=== PATIENT | female | born 1990 | race Caucasian/White ===

== ENCOUNTER 2018-07-31 20:22 | Outpatient (REF) | payer BC, SELFPAY ==
--- NOTE | 2018-07-31 | PAPFT_PTH ---
PATIENT: Grisel Adams LOC: [facility] U#:[id number] AGE/SX: 27/F ROOM: RE07/31/[address]: Marcia Hutchinson : 1990 BED: DIS: 07/31/2018 SPEC #: [id number] RECD: 08/03/18 13:07 STATUS: HEATH REQ #: [id number] SILVINO: 07/31/18 00:[address]: Marcia Hutchinson DEPT: [facility] Cytology RECD BY: Camille Busch ENTERED: 08/03/18 13:07 SP TYPE: PAPFT OTHR DR: Joel Romo Tissues: 1 - CX/ENDOCX FOR PAP SMEARS Procedures: PAP THIN PREP/UVM Screening Comments: [id number]
[2018-07-31 21:01] LABS: Abs Immature Grans 0.01 k/cumm (0.0-0.09); Absolute Basophil Count 0.04 k/cumm (0.0-0.2); Absolute Eosinophil Count 0.08 k/cumm (0.0-0.7); Absolute Lymphocyte Count 3.03 k/cumm (1.2-3.4); Absolute Monocyte Count 0.59 k/cumm (0.11-0.7); Absolute Neutrophil Count 5.83 k/cumm (1.2-6.7); Basophils % 0.4; Eosinophils % 0.8; HCT 37.7 % (36.0-46.0); HGB 11.8 g/dL (12.0-15.5); Immature Grans % 0.1; Lymphocytes % 31.6; Mean Corp. HGB Concentration 31.3 g/dL (32.0-36.0); Mean Corpuscular Hemoglobin 25.8 pg (27.0-33.0); Mean Corpuscular Volume 82.3 fL (80-95); Mean Platelet Volume 10.9 fL (8.0-11.0); Monocytes % 6.2; Neutrophils % 60.9; Platelet Count 394 x1000/uL (130-400); RBC 4.58 m/cumm (4.00-5.20); RBC Distribution Width 15.4 % (11.7-14.6); White Blood Cell Count 9.58 k/cumm (4.4-10.8)
[2018-07-31 21:15] LABS: ALT 18 U/L (12-78); AST 20 U/L (15-37); Albumin 3.7 g/dL (3.4-5.0); Alkaline Phosphatase 78 U/L (46-116); Anion Gap 11.4 mmol/L (3-11); BUN 11 mg/dL (7-18); Bilirubin, Total 0.2 mg/dL (0.2-1.0); CO2 25.6 mmol/L (21.0-32.0); CREATININE 0.61 mg/dL (0.55-1.02); Calcium 9.3 mg/dL (8.5-10.1); Chloride 102 mmol/L (98-107); Cholesterol 173 mg/dL (50-200); Glucose 75 mg/dL (70-100); HDL Cholesterol 61 mg/dL (40-60); LDL CHOLESTEROL 91 mg/dL (<100); Potassium 4.3 mmol/L (3.5-5.1); Sodium 139 mmol/L (136-145); Total Protein 7.6 g/dL (6.4-8.2); Triglyceride 165 mg/dL (30-150)
[2018-07-31 21:26] LABS: C-Reactive Protein 1.81 mg/dL (0.0-0.3)
[2018-07-31 21:49] LABS: ESR 29 MM/HR (0-20)
== END 2018-07-31 20:42 ==
LOC: NCHCN 20:22
PROVIDERS: PCP Internal Medicine; Referring Provider Family Medicine; Visit Provider Family Medicine
DX: R10.9 Unspecified abdominal pain (principal); K62.5 Hemorrhage of anus and rectum; Z13.9 Encounter for screening, unspecified; Z12.4 Encounter for screening for malignant neoplasm of cervix; Z00.00 Encounter for general adult medical examination without abnormal findings
CPT/HCPCS: 80053; 80061; 83721; 85652; 88142; 85025; 86140

== ENCOUNTER 2018-08-28 09:30 | Outpatient (REF) | payer BC, SELFPAY ==
[2018-08-28 21:04] LABS: Iron 33 ug/dL (50-175); Total Iron Binding Capacity 482 ug/dL (250-450); Transferrin Sat 7 % (15-50)
[2018-08-31 12:16] LABS: IgA 151 mg/dL (85-499); Interpretation SEE COMMENTS; Tissue Transglutaminase IgA <1.2 U/mL (<4.0)
== END 2018-08-28 09:50 ==
LOC: NCHCN 09:30
PROVIDERS: PCP Internal Medicine; Visit Provider Family Medicine
DX: R10.9 Unspecified abdominal pain (principal); K62.5 Hemorrhage of anus and rectum
CPT/HCPCS: 82784; 83516; 83540; 83550

== ENCOUNTER 2019-01-12 22:31 | Outpatient (REF) | payer BC, SELFPAY ==
[2019-01-12 21:15] LABS: Abs Immature Grans 0.01 k/cumm (0.0-0.09); Absolute Basophil Count 0.04 k/cumm (0.0-0.2); Absolute Lymphocyte Count 2.86 k/cumm (1.2-3.4); Absolute Monocyte Count 0.68 k/cumm (0.11-0.7); Absolute Neutrophil Count 6.11 k/cumm (1.2-6.7); Basophils % 0.4; HCT 36.4 % (36.0-46.0); HGB 11.8 g/dL (12.0-15.5); Immature Grans % 0.1; Lymphocytes % 29.2; Mean Corp. HGB Concentration 32.4 g/dL (32.0-36.0); Mean Corpuscular Hemoglobin 26.3 pg (27.0-33.0); Mean Corpuscular Volume 81.1 fL (80-95); Mean Platelet Volume 10.3 fL (8.0-11.0); Monocytes % 6.9; Neutrophils % 62.4; Platelet Count 400 x1000/uL (130-400); RBC 4.49 m/cumm (4.00-5.20); RBC Distribution Width 14.9 % (11.7-14.6)
[2019-01-12 21:22] LABS: Iron 33 ug/dL (50-175); Total Iron Binding Capacity 506 ug/dL (250-450); Transferrin Sat 7 % (15-50)
== END 2019-01-12 22:51 ==
LOC: NCHCN 22:31
PROVIDERS: PCP Internal Medicine; Visit Provider Family Medicine
DX: K62.5 Hemorrhage of anus and rectum (principal); R10.9 Unspecified abdominal pain
CPT/HCPCS: 83540; 83550; 85025

== ENCOUNTER 2020-10-18 15:59 | Outpatient (REF) | payer SELFPAY ==
[2020-10-20 14:06] LABS: Chlamydia Result Negative (Negative); GC Result Negative (Negative)
== END 2020-10-18 16:19 ==
LOC: NCHCN 15:59
PROVIDERS: PCP Internal Medicine; Visit Provider Registered Nurse
DX: Z11.3 Encounter for screening for infections with a predominantly sexual mode of transmission (principal)
CPT/HCPCS: 87491; 87591

== ENCOUNTER 2021-04-26 15:54 | Outpatient (REF) | payer SELFPAY ==
--- NOTE | 2021-04-26 14:45 | PAPFT_PTH ---
PATIENT: Grisel Adams LOC: [facility] U#:[id number] AGE/SX: 30/F ROOM: RE04/26/[address]: Jenny Chen : 1990 BED: DIS: 04/26/2021 SPEC #: [id number] RECD: 04/27/21 13:11 STATUS: HEATH RECarole #: [id number] SILVINO: 04/26/21 14:[address]: Jenny Chen DEPT: [facility] Cytology RECD BY: Camille Busch ENTERED: 04/27/21 13:11 SP TYPE: PAPFT OTHR DR: Joel Romo Tissues: 1 - CX/ENDOCX FOR PAP SMEARS Procedures: PAP THIN PREP/UVM Screening HPV DNA PROBE Comments: [id number]
[2021-04-26 20:52] LABS: Abs Immature Grans 0.04 10^3/uL (0.0-0.06); Absolute Basophil Count 0.07 10^3/uL (0.0-0.2); Absolute Eosinophil Count 0.06 10^3/uL (0.0-0.7); Absolute Lymphocyte Count 3.75 10^3/uL (1.2-3.4); Absolute Monocyte Count 0.76 10^3/uL (0.1-0.8); Basophils % 0.6; Eosinophils % 0.5; HCT 34.5 % (36.0-46.0); HGB 10.7 g/dL (11.2-15.7); Immature Grans % 0.4; Lymphocytes % 33.5; MCH 25.5 pg (27.0-33.0); MCV 82.3 fL (80-95); MPV 9.5 fL (8.0-11.0); Monocytes % 6.8; Neutrophils % 58.2; Nucleated RBC 0 %; Platelet Count 522 10^3/uL (130-400); RBC 4.19 10^6/uL (3.93-5.22); RDW 14.4 % (11.7-14.6); RDW-SD 43.1 fL; WBC 11.18 10^3/uL (4.4-10.8)
[2021-04-26 20:54] LABS: Absolute Neutrophil Count 6.51 10^3/uL (1.2-6.7)
[2021-04-26 21:09] LABS: Anion Gap 12.3 mmol/L (3-11); BUN 10 mg/dL (7-18); CO2 25.7 mmol/L (21.0-32.0); CREATININE 0.8 mg/dL (0.55-1.02); Calcium 9.5 mg/dL (8.5-10.1); Chloride 103 mmol/L (98-107); Glucose 110 mg/dL (74-106); Potassium 4.1 mmol/L (3.5-5.1); Sodium 141 mmol/L (136-145)
[2021-04-30 16:44] LABS: Iron 25 ug/dL (50-170); Total Iron Binding Capacity 449 ug/dL (250-450); Transferrin Sat 6 % (15-50)
== END 2021-04-26 15:55 | disposition home or self-care (01) ==
LOC: NCHCN 15:54
PROVIDERS: PCP Internal Medicine; Visit Provider Registered Nurse
DX: D50.9 Iron deficiency anemia, unspecified (principal); E87.6 Hypokalemia; Z12.4 Encounter for screening for malignant neoplasm of cervix; R87.610 Atypical squamous cells of undetermined significance on cytologic smear of cervix (ASC-US); Z11.51 Encounter for screening for human papillomavirus (HPV); R87.810 Cervical high risk human papillomavirus (HPV) DNA test positive
CPT/HCPCS: 80048; 88142; 83540; 83550; 85025; 87624

== ENCOUNTER 2021-05-01 14:52 | Outpatient (REF) | payer SELFPAY | END 2021-05-01 14:53 | disposition home or self-care (01) | LOC: NCHCN 14:52 | PROVIDERS: PCP Internal Medicine; Visit Provider Nurse Practitioner Family | DX: R82.998 Other abnormal findings in urine (principal); M54.5 Low back pain | CPT/HCPCS: 87086 ==

== ENCOUNTER 2022-05-08 17:11 | Outpatient (REF) | payer OTHER, SELFPAY ==
--- NOTE | 2022-05-08 15:30 | PAPFT_PTH ---
PATIENT: Grisel Adams LOC: [facility]#:[id number] AGE/SX: 31/F ROOM: RE05/08/[address]: Marcia Hutchinson : 1990 BED: DIS: 05/08/2022 SPEC #: [id number] RECD: 05/09/22 13:05 STATUS: HEATH RECarole #: [id number] SILVINO: 05/08/22 15:[address]: Marcia Hutchinson DEPT: [facility] Cytology RECD BY: Camille Busch ENTERED: 05/09/22 13:05 SP TYPE: PAPFT OTHR DR: Joel Romo Tissues: 1 - CX/ENDOCX FOR PAP SMEARS Procedures: PAP THIN PREP/UVM Screening HPV DNA PROBE Comments: [id number] (CHLAMYDIA/GC)
[2022-05-10 15:15] LABS: Chlamydia Result Negative (Negative); GC Result Negative (Negative)
== END 2022-05-08 17:12 | disposition home or self-care (01) ==
LOC: NCHCN 17:11
PROVIDERS: PCP Internal Medicine; Visit Provider Family Medicine
DX: Z11.51 Encounter for screening for human papillomavirus (HPV) (principal)
CPT/HCPCS: 87491; 87591; 88142; 87624

== ENCOUNTER 2024-04-06 13:10 | Outpatient (REF) | payer SELFPAY | END 2024-04-06 13:11 | disposition home or self-care (01) | LOC: NCHCN 13:10 | PROVIDERS: PCP Internal Medicine; Visit Provider Physician Assistant | DX: R30.0 Dysuria (principal) | CPT/HCPCS: 87086 ==

== ENCOUNTER 2024-05-04 15:19 | Outpatient (REF) | payer MEDICAID, SELFPAY ==
[2024-05-04 21:26] LABS: Calculated LDL 70 mg/dL (<100); Cholesterol 180 mg/dL (<200); HDL Cholesterol 55 mg/dL (40-60); TSH (W/Ref FT4) 1.71 uIU/mL (0.36-3.74); Triglyceride 277 mg/dL (<150)
[2024-05-04 21:29] LABS: Iron 34 ug/dL (50-170); Total Iron Binding Capacity 530 ug/dL (250-450); Transferrin Sat 6 % (15-50)
== END 2024-05-04 15:20 | disposition home or self-care (01) ==
LOC: NCHCN 15:19
PROVIDERS: PCP Internal Medicine; Visit Provider Family Medicine
DX: D50.8 Other iron deficiency anemias (principal); R63.5 Abnormal weight gain; E78.1 Pure hyperglyceridemia
CPT/HCPCS: 80061; 83540; 83550; 84443; 87086

== ENCOUNTER 2024-06-16 19:51 | Outpatient (REF) | payer MEDICAID, SELFPAY ==
[2024-06-16 21:31] LABS: HCT 37.6 % (36.0-46.0); HGB 12.1 g/dL (11.2-15.7); MCHC 32.2 % (32.0-36.0); MCV 81 fL (80-95); MPV 10.1 fL (8.0-11.0); Platelet Count 477 10^3/uL (130-400); RBC 4.65 10^6/uL (3.93-5.22); RDW 14.6 % (11.7-14.6); RDW-SD 42.6 fL; WBC 11.08 10^3/uL (4.4-10.8)
[2024-06-16 22:45] LABS: Iron 37 ug/dL (50-170); Total Iron Binding Capacity 538 ug/dL (250-450); Transferrin Sat 7 % (15-50)
== END 2024-06-16 19:52 | disposition home or self-care (01) ==
LOC: NCHCN 19:51
PROVIDERS: PCP Internal Medicine; Visit Provider Family Medicine
DX: D50.9 Iron deficiency anemia, unspecified (principal)
CPT/HCPCS: 85027; 83540; 83550

== ENCOUNTER 2024-09-09 16:54 | Outpatient (REF) | payer MEDICAID, SELFPAY ==
[2024-09-09 22:34] LABS: Iron 46 ug/dL (50-170); Total Iron Binding Capacity 379 ug/dL (250-450); Transferrin Sat 12 % (15-50)
== END 2024-09-09 16:55 | disposition home or self-care (01) ==
LOC: NCHCN 16:54
PROVIDERS: PCP Internal Medicine; Visit Provider Family Medicine
DX: D50.9 Iron deficiency anemia, unspecified (principal)
CPT/HCPCS: 85027; 83540; 83550

== ENCOUNTER 2024-10-29 14:22 | Outpatient (REF) | payer MEDICAID, SELFPAY ==
[2024-10-29 15:38] LABS: HCT 38.3 % (36.0-46.0); HGB 12.6 g/dL (11.2-15.7); MCH 28.7 pg (27.0-33.0); MCHC 32.9 % (32.0-36.0); MCV 87 fL (80-95); MPV 10.3 fL (8.0-11.0); Platelet Count 387 10^3/uL (130-400); RBC 4.39 10^6/uL (3.93-5.22); RDW 15.3 % (11.7-14.6); RDW-SD 48.9 fL
[2024-10-29 16:18] LABS: Ferritin 256 ng/mL (8-252)
== END 2024-10-29 14:23 | disposition home or self-care (01) ==
LOC: NCHCN 14:22
PROVIDERS: PCP Internal Medicine; Visit Provider Family Medicine
DX: E61.1 Iron deficiency (principal)
CPT/HCPCS: 85027; 82728

== ENCOUNTER 2024-12-08 08:51 | Outpatient (REF) | payer MEDICAID, SELFPAY ==
--- OUTSIDE RECORDS SUMMARY | 2024-12-08 08:53 | XMS_ITS ---
Author Organization Unknown Address [address] [place] [phone] Phone Care Team Providers Care Learning And Development Director Name Role Phone LAURA INTERIANO MD Attending Candace MORENO Primary Unavailable Results BASIC METABOLIC PANEL (BMP) - Collect Date/Time: 05/27/2021 11:10 [facility] ID: [id number] [address], [place], [address] LOINC: 37969-9 Test Value Unit Reference Range Code Code System Flag GLUCOSE 97 mg/dL L=70 H=116 2345-7 LOINC BUN 8 mg/dL L=6 H=25 3094-0 LOINC CREATININE 0.73 mg/dL L=0.51 H=0.95 2160-0 LOINC SODIUM SERUM 142 mmol/L L=136 H=145 2951-2 LOINC POTASSIUM SERUM 3.7 mmol/L L=3.4 H=5.2 2823-3 LOINC CHLORIDE SERUM 106 mmol/L L=96 H=110 2075-0 LOINC CARBON DIOXIDE (CO2) 26 mmol/L L=22 H=34 2028-9 LOINC ANION GAP 10.5 mmol/L 07990-6 LOINC CALCIUM SERUM 8.7 mg/dL L=8.2 H=10.2 65873-9 LOINC AGE 30 years eGFR (non-Afr.Amer.) 94 mL/min 88902-3 LOINC eGFR (Afr-[place]) 114 mL/min 39671-7 LOINC CBC W/ DIFFERENTIAL - Collec t Date/Time: 05/27/2021 11:10 [facility] ID: [id number] 8 [facility], [place], [place], [address] LOINC: 04533-7 Test Value Unit Reference Range Code Code System Flag WBC 10.37 th/cmm L=5.00 H=10.00 6690-2 LOINC H NEUT % 64.9 % L=40.0 H=80.0 LYMPH % 28.4 % L=10.0 H=50.0 MONO % 4.9 % L=2.0 H=12.0 72383-6 LOINC EOS % 0.7 % L=0.0 H=8.0 BASO % 0.8 % L=0.0 H=3.0 IG % 0.3 % L=0.0 H=1.1 2514-8 LOINC NRBC % 0.0 % L=0.0 H=0.0 77370-0 LOINC NEUT abs count 6.7 th/cmm L=1.6 H=8.4 751-8 LOINC LYMPH abs count 2.9 th/cmm L=1.5 H=4.0 731-0 LOINC MONO abs count 0.5 th/cmm L=0.2 H=1.0 742-7 LOINC EOS abs count 0.1 th/cmm L=0.0 H=0.5 711-2 LOINC BASO abs count 0.1 th/cmm L=0.0 H=0.2 704-7 LOINC IG abs count 0.0 th/cmm L=0.0 H=0.1 29737-4 LOINC NRBC abs count 0.0 mil/cmm L=0.0 H=0.0 98948-2 LOINC RBC 4.01 mil/cmm L=3.90 H=5.40 789-8 LOINC HEMOGLOBIN 10.4 gm/dL L=12.0 H=16.0 718-7 LOINC L HEMATOCRIT 33 % L=37 H=47 4544-3 LOINC L MCV 82 fL L=82 H=92 787-2 LOINC MCH 25.9 pg L=27.0 H=31.0 785-6 LOINC L MCHC 31.7 % L=32.0 H=36.0 786-4 LOINC L RDW-SD 45.1 fL L=39.0 H=49.0 788-0 LOINC PLATELET COUNT 387 th/cmm L=150 H=450 777-3 LOINC CHLAMYDIA/GC AMPLIFIED PROBE - Collect Date/Time: 05/27/2021 10:50 [facility] ID: [id number] [address] [place] [address], [id number] LOINC: 55321-8 Test Value Unit Reference Range Code Code System Flag Chlamydia Result Negative Negative GC Result Negative Negative TEST (URINE) QUALI TATIVE - Collect Date/Time: 05/27/2021 10:50 [facility] ID: [id number] [address], [place], [address] LOINC: 2106-3 Test Value Unit Reference Range Code Code System Flag TEST NEGATIVE 6-3 LOINC URINALYSIS WITH REFLEX CULT IF POSITIVE - Collect Date/Time: 05/27/2021 10:50 [facility] ID: [id number] [address] [place] [address], [address] LOINC: 56852-9 Test Value Unit Reference Range Code Code System Flag COLLECTION MODE: Clean Catch Color YELLOW yellow 5778-6 LOINC Appearance CLEAR clear 5767-9 LOINC Glucose urine NEGATIVE negative mg/dl 74823-2 LOINC Bilirubin NEGATIVE negative 5770-3 LOINC Ketones NEGATIVE negative mg/dl 2514-8 LOINC Spec gravity 1.015 1.003 - 1.030 5811-5 LOINC pH urine 6.0 5.0 - 7.0 2756-5 LOINC Protein NEGATIVE negative mg/dl 66172-8 LOINC Urobilinogen 0.2 <or= 1 EU/dl 91456-9 LOINC Nitrite. NEGATIVE negative 5802-4 LOINC Blood TRACE-LY negative 5794-3 LOINC A Leukocytes. TRACE negative A MICROSCOPIC INDICATED WBCs. 0-5 0-5 / hpf 30711-9 LOINC RBCs 0-5 0-5 / hpf 06847-3 LOINC Epith cells 0-5 0-5 / hpf 34534-2 LOINC Cell types squamous Crystals none none Bacteria minimal none Mucus present none 8247-9 LOINC Casts none none /lpf 93633-6 LOINC Other 94318-[address] ABDOMEN/PELVIS WITH IV ON LY - Completed: 05/27/2021 15:30 LOINC: Radiation optimization: All CT scans at this facility use at least one of these dose optimization techniques: automated exposure control; mA and/or kV adjustment per patient size (includes targeted exams where dose is matched to clinical indication); or iterative reconstruction. Prior ultrasound examination of December 2012 was reviewed. There is a small nodular density in the posterior basal segment of the left lower lobe measuring 6 by 4 mm. There is no ascites. The liver size is slightly prominent. Mild steatosis. No discrete focal hepatic lesion is evident. No dilatation of intrahepatic ducts. There is no obvious gallbladder pathology. The CBD is not dilated. There are no significant focal findings in the pancreas. The pancreatic duct is not dilated. Spleen size is normal. The splenic and portal veins are patent. There are no significant adrenal masses. No focal findings in the kidneys. No hydronephrosis. Abdominal aorta is not enlarged. There is no significant retroperitoneal/periaortic adenopathy. No evidence of significant anterior abdominal wall hernia. No bowel obstruction. No free air. In the pelvis, there is no evidence of appendicitis nor diverticulitis. The uterus and adnexal regions appear unremarkable and there is no free fluid in the pelvis. No intrapelvic nor inguinal adenopathy. Urinary bladder wall is slightly thickened. On the sagittal images, there is a single tiny air bubble within the anterior urinary bladder. IMPRESSION: 1. No evidence of acute appendicitis nor free fluid in the abdomen/pelvis and no evidence of bowel obstruction. 2. Mild hepatomegaly and mild hepatic steatosis. No splenomegaly. 3. Solitary tiny gas bubble noted in the anterior aspect of the urinary bladder. Also slight haziness of the urinary bladder wall. Correlation with any recent instrumentation recommended. Correlation with any history of bladder infection recommended. 4. There is a small nodular density measuring 6 by 4 mm in the left lung base. Recommend followup chest CT scan in 6 months. This study first read by [facility] Teleradiology. Final report called by myself to the ER provided Friday05/27/21 at 3:10 pm. Dictated by: NIC AMAYA M.D. RADIOLOGIST Transcribed by: NIGHAT 05/28/21/09:02 D Thursday, May 27, 2021 3:02:04 PM [id number] Electronically Reviewed and Signed By: MAGI AMAYA M.D. RADIOLOGIST 05/28/21 19:20 Copy for: LAURA INTERIANO MD via modem DISCHARGED Social History Type Status Start Date End Date Code Code Syst em Smoking History Never smoker (Never Smoked) 827054850 SNOMED CT Sex Female Medications Medication Start Date End Date Route Frequency Dose Code Code System Medication Instructions Home Meds Meclizine HCl 25MG Oral Tablet 01/30/2022 03/26/2022 ORAL EVERY 6 HOURS 1 TABLET 375032 RxNorm TAKE 1 TABLET ORAL EVERY 6 HOURS as needed for dizziness Ondansetron 4MG Oral Tablet, Disintegrating 03/26/2022 08/09/2022 ORAL NEEDED EVERY 6 HOURS 1 TABLET 001710 RxNorm TAKE 1 TABLET ORAL NEEDED EVERY 6 HOURS FOR Nausea/Vomi ting Benzonatate 200MG Oral Capsule, Liquid Filled 03/26/2022 08/09/2022 ORAL NEEDED THREE TIMES A DAY 1 CAPSULE 978761 RxNorm TAKE 1 CAPSULE ORAL NEEDED THREE TIMES A DAY Ibuprofen 200MG Oral Tablet 08/09/2022 11/17/2022 ORAL THREE TIMES A DAY 4 TABLET 797702 RxNorm TAKE 4 TABLET ORAL THREE TIMES A DAY TAKE WITH FOOD Zofran 4MG Oral Tablet 11/17/2022 02/16/2024 ORAL EVERY 6 HOURS 1 TABLET 078515 RxNorm TAKE 1 TABLET ORAL EVERY 6 HOURS FOR Nausea Assessment You had the following problems:DEPRESSIONLIGHTHEADEDTACHYCARDIA Hospital Discharge Instructions Should you have any questions prior to discharge, please contact a member of your healthcare team. If you have left the hospital and have any questions, please contact your primary care physician. Reason For Referral No Data Found Problems Problem Start Date Resolved Date Status Code Code System DEPRESSION active 24100288 SNOMED-CT LIGHTHEADED active 985596771 SNOMED-C T TACHYCARDIA active 1360005 SNOMED-C T OBESITY active 641548657 SNOMED-CT Allergies and Adverse Reactions Allergy Substance Reaction Severity Start Date Concern Status Co de Code System PENICILLINS (CLASS) RASH (SNOMED-CT: null) Active 62452 RxNorm AMOXICILLIN Hives (SNOMED-CT: 507828181) Active Plan of Treatment US PELVIC / TV 10/14/2023 US PELVIC / TV 05/30/2022 US PELVIC / TV 05/16/2022 LAB DRAW 15MIN 04/18/2022 Encounters Encounter Diagnosis Start Date Code Code Sys tem Right lower quadrant pain 05/27/2021 SN OMED-CT Personal Care Team Section Performer Name Performer Role Active Date Inactive Da te
--- OUTSIDE RECORDS SUMMARY | 2024-12-08 08:53 | XMS_ITS ---
Author Organization Unknown Address [address] [place] [phone] Phone Care Team Providers Care [employer] Name Role Phone TRAVIS King MD Attending Unavailable KATIE MORENO Primary Unavailable Social History Type Status Start Date End Date Code Code Syst em Smoking History Never smoker (Never Smoked) 714846095 SNOMED CT Sex Female Medications Medication Start Date End Date Route Frequency Dose Code Code System Medication Instructions Home Meds Meclizine HCl 25MG Oral Tablet 01/30/2022 03/26/2022 ORAL EVERY 6 HOURS 1 TABLET 432463 RxNorm TAKE 1 TABLET ORAL EVERY 6 HOURS as needed for dizziness Ondansetron 4MG Oral Tablet, Disintegrating 03/26/2022 08/09/2022 ORAL NEEDED EVERY 6 HOURS 1 TABLET 929381 RxNorm TAKE 1 TABLET ORAL NEEDED EVERY 6 HOURS FOR Nausea/Vomi ting Benzonatate 200MG Oral Capsule, Liquid Filled 03/26/2022 08/09/2022 ORAL NEEDED THREE TIMES A DAY 1 CAPSULE 014739 RxNorm TAKE 1 CAPSULE ORAL NEEDED THREE TIMES A DAY Ibuprofen 200MG Oral Tablet 08/09/2022 11/17/2022 ORAL THREE TIMES A DAY 4 TABLET 938591 RxNorm TAKE 4 TABLET ORAL THREE TIMES A DAY TAKE WITH FOOD Zofran 4MG Oral Tablet 11/17/2022 02/16/2024 ORAL EVERY 6 HOURS 1 TABLET 669589 RxNorm TAKE 1 TABLET ORAL EVERY 6 [...] Date Status Code Code System DEPRESSION active 25992100 SNOMED-CT LIGHTHEADED active 720740666 SNOMED-C T TACHYCARDIA active 4581873 SNOMED-C T OBESITY active 185512881 SNOMED-CT Allergies and Adverse Reactions Allergy Substance Reaction Severity Start Date Concern Status Co de Code System PENICILLINS (CLASS) RASH (SNOMED-CT: null) Active 17355 RxNorm AMOXICILLIN Hives (SNOMED-CT: 051199693) Active Plan of Treatment US PELVIC / TV 10/14/2023 US PELVIC / TV 05/30/2022 US PELVIC / TV 05/16/2022 LAB DRAW 15MIN 04/18/2022 Encounters Encounter Diagnosis Start Date Code Code Sys tem Atypical squamous cells of u ndetermined significance on cytologic smear of cervix (ASC-US) 06/14/2021 SNOME D-CT Personal Care Team Section Performer Name Performer Role Active Date Inactive Da te
--- OUTSIDE RECORDS SUMMARY | 2024-12-08 08:54 | XMS_ITS ---
Author Organization Unknown Address [address] [place] [phone] Phone Care Team Providers Care Flame Cutting Supervisor Name Role Phone JACI Rivas Registered Nurse Unavailable SERGE ISLAS Registered Nurse Unavailable ANIA Angulo Attending Unavailable KATIE Guaman Primary Unavailable UNLISTED PROVIDER - REQUESTED Xhandoff Un available Results URINALYSIS WITH REFLEX CULT IF POSITIVE* - Collect Date/Time: 01/30/2022 19:05 [facility] ID: [id number] [address] [place], [place], [address] LOINC: 65433-6 Test Value Unit Reference Range Code Code System Flag COLLECTION MODE: CLEAN CATCH Color YELLOW yellow 5778-6 LOINC Appearance CLEAR clear 5767-9 LOINC Glucose urine NEGATIVE negative mg/dl 33667-7 LOINC Bilirubin NEGATIVE negative 5770-3 LOINC Ketones NEGATIVE negative mg/dl 2514-8 LOINC Spec gravity 1.010 1.003 - 1.030 5811-5 LOINC pH urine 6.0 5.0 - 7.0 2756-5 LOINC Protein NEGATIVE negative mg/dl 66839-4 LOINC Urobilinogen 0.2 <or= 1 EU/dl 84025-5 LOINC Nitrite. NEGATIVE negative 5802-4 LOINC Blood SMALL negative 5794-3 LOINC A Leukocytes. TRACE negative A MICROSCOPIC INDICATED WBCs. 0-5 0-5 / hpf 95235-2 LOINC RBCs 0-5 0-5 / hpf 62989-0 LOINC Epith cells 10-25 0-5 / hpf 30029-3 LOINC Cell types squamous Crystals none none Bacteria moderate none Mucus none none 8247-9 LOINC Casts none none /lpf 04586-4 LOINC Other 09785-1 LOINC TEST (URINE) QUALI TATIVE - Collect Date/Time: 01/30/2022 19:05 [facility] ID: [id number] [address] [place], [place], [address] LOINC: 2105-3 Test Value Unit Reference Range Code Code System Flag [facility]GATIVE [facility]105[facility] L (CMP) - Collect Date/Time: 01/30/2022 18:00 [facility] ID: [id number] [address] [place], [place], [address] LOINC: 28522-4 Test Value Unit Reference Range Code Code System Flag GLUCOSE 79 mg/dL L=70 H=116 2345-7 LOINC BUN 10 mg/dL L=6 H=25 3094-0 LOINC CREATININE 0.67 mg/dL L=0.51 H=0.95 2160-0 LOINC SODIUM SERUM 139 mmol/L L=136 H=145 2951-2 LOINC POTASSIUM SERUM 3.8 mmol/L L=3.4 H=5.2 2823-3 LOINC CHLORIDE SERUM 104 mmol/L L=96 H=110 2075-0 LOINC CARBON DIOXIDE (CO2) 25 mmol/L L=22 H=34 2028-9 LOINC ANION GAP 10.1 mmol/L 78771-2 LOINC CALCIUM SERUM 9.3 mg/dL L=8.2 H=10.2 50550-4 LOINC BILIRUBIN TOTAL 0.2 mg/dL L=0.0 H=1.3 1975-2 LOINC ALK. PHOS. 68 U/L L=46 H=116 6768-6 LOINC SGOT (AST) 9 U/L L=15 H=37 1920-8 LOINC L SGPT (ALT) 12 U/L L=12 H=78 1742-6 LOINC TOTAL PROTEIN 7.6 gm/dL L=6.0 H=8.0 2885-2 LOINC ALBUMIN 3.4 gm/dL L=3.4 H=5.0 1751-7 LOINC AGE 31 years eGFR (non-Afr.Amer.) 103 mL/min 37438-0 LOINC eGFR (Afr-[place]ander) > 120 mL/min 10215-8 LOINC CBC W/ DIFFERENTIAL* - Colle ct Date/Time: 01/30/2022 18:00 [facility] ID: [id number] [address] [place], [place], [address] LOINC: 50192-8 Test Value Unit Reference Range Code Code System Flag WBC 11.22 th/cmm L=5.00 H=10.00 6690-2 LOINC H NEUT % 56.4 % L=40.0 H=80.0 LYMPH % 35.7 % L=10.0 H=50.0 MONO % 6.1 % L=2.0 H=12.0 95738-2 LOINC EOS % 1.1 % L=0.0 H=8.0 BASO % 0.5 % L=0.0 H=3.0 IG % 0.2 % L=0.0 H=1.1 2514-8 LOINC NRBC % 0.0 % L=0.0 H=0.0 01102-5 LOINC NEUT abs count 6.3 th/cmm L=1.6 H=8.4 751-8 LOINC LYMPH abs count 4.0 th/cmm L=1.5 H=4.0 731-0 LOINC MONO abs count 0.7 th/cmm L=0.2 H=1.0 742-7 LOINC EOS abs count 0.1 th/cmm L=0.0 H=0.5 711-2 LOINC BASO abs count 0.1 th/cmm L=0.0 H=0.2 704-7 LOINC IG abs count 0.0 th/cmm L=0.0 H=0.1 67926-6 LOINC NRBC abs count 0.0 mil/cmm L=0.0 H=0.0 06815-0 LOINC RBC 4.55 mil/cmm L=3.90 H=5.40 789-8 LOINC HEMOGLOBIN 11.9 gm/dL L=12.0 H=16.0 718-7 LOINC L HEMATOCRIT 38 % L=37 H=47 4544-3 LOINC MCV 82 fL L=82 H=92 787-2 LOINC MCH 26.2 pg L=27.0 H=31.0 785-6 LOINC L MCHC 31.7 % L=32.0 H=36.0 786-4 LOINC L RDW-SD 46.0 fL L=39.0 H=49.0 788-0 LOINC PLATELET COUNT 371 th/cmm L=150 H=450 777-3 LOINC Atyp lymphs 2+ Giant plts present Social History Type Status Start Date End Date Code Code Syst em Smoking History Never smoker (Never Smoked) 444569078 SNOMED CT Sex Female Vital Signs Vital Sign Value Unit Morrow Value Morrow Unit Date/Time Recent/Initial? Code Code System Body Mass Index 54.41 kg/m2 01/30/2022 17:20 Initial 72566 -5 LOINC Systolic Blood Pressure 126 mm[Hg] 01/30/2022 19:37 Most Recent 8480- 6 LOINC Diastolic Blood Pressure 69 mm[Hg] 01/30/2022 19:37 Most Recent 8462- 4 LOINC Systolic Blood Pressure 170 mm[Hg] 01/30/2022 17:20 Initial 8480- 6 LOINC Diastolic Blood Pressure 86 mm[Hg] 01/30/2022 17:20 Initial 8462- 4 LOINC Body Surface Area 2.55 m2 01/30/2022 17:20 Initial 3140- 1 LOINC Height 162.560 0 cm 64.00 in 01/30/2022 17:20 Initial 8302- 2 LOINC O2 Saturation 99 % 2021 19:37 Most Recent 93107 -5 LOINC O2 Saturation 98 % 2021 17:20 Initial 15791 -5 LOINC Pulse 99.0 /min 01/30/2022 19:37 Most Recent 8867- 4 LOINC Pulse 113.0 /min 01/30/2022 17:20 Initial 8867- 4 LOINC Respiration 19 /min 01/31/20 19:37 Most Recent 9279- 1 LOINC Respiration 18 /min 01/31/20 17:20 Initial 9279- 1 LOINC Temperature 36.8 Alyssa 98.2 F 01/31/20 17:20 Initial 8310- 5 LOINC Weight 143.79 kg 317.00 lbs 01/30/2022 17:20 Initial 02758 -7 [facility] Medications Medication Start Date End Date Route Frequency Dose Code Code System Medication Instructions Home Meds Meclizine HCl 25MG Oral Tablet 01/30/2022 03/26/2022 ORAL EVERY 6 HOURS 1 TABLET 808369 RxNorm TAKE 1 TABLET ORAL EVERY 6 HOURS as needed for dizziness Ondansetron 4MG Oral Tablet, Disintegrating 03/26/2022 08/09/2022 ORAL NEEDED EVERY 6 HOURS 1 TABLET 511626 RxNorm TAKE 1 TABLET ORAL NEEDED EVERY 6 HOURS FOR Nausea/Vomi ting Benzonatate 200MG Oral Capsule, Liquid Filled 03/26/2022 08/09/2022 ORAL NEEDED THREE TIMES A DAY 1 CAPSULE 927340 RxNorm TAKE 1 CAPSULE ORAL NEEDED THREE TIMES A DAY Ibuprofen 200MG Oral Tablet 08/09/2022 11/17/2022 ORAL THREE TIMES A DAY 4 TABLET 430362 RxNorm TAKE 4 TABLET ORAL THREE TIMES A DAY TAKE WITH FOOD Zofran 4MG Oral Tablet 11/17/2022 02/16/2024 ORAL EVERY 6 HOURS 1 TABLET 621482 RxNorm TAKE 1 TABLET ORAL EVERY 6 [...] Date Status Code Code System DEPRESSION active 41103949 SNOMED-CT LIGHTHEADED active 156886078 SNOMED-C T TACHYCARDIA active 8475028 SNOMED-C T OBESITY active 382793949 SNOMED-CT Allergies and Adverse Reactions Allergy Substance Reaction Severity Start Date Concern Status Co de Code System PENICILLINS (CLASS) RASH (SNOMED-CT: null) Active 65518 RxNorm AMOXICILLIN Hives (SNOMED-CT: 042793317) Active Plan of Treatment US PELVIC / TV 10/14/2023 US PELVIC / TV 05/30/2022 US PELVIC / TV 05/16/2022 LAB DRAW 15MIN 04/18/2022 Encounters Encounter Diagnosis Start Date Code Code Sys tem Other peripheral vertigo, unspecified ear 01/30/2022 SNOMED-CT Personal Care Team Section Performer Name Performer Role Active Date Inactive Da te
--- OUTSIDE RECORDS SUMMARY | 2024-12-08 08:54 | XMS_ITS ---
Author Organization Unknown Address [address] [place] [phone] Phone Care Team Providers Care Brick Baker Name Role Phone TRAVIS King Attending Unavailable KATIE DOWNINGAH Rowena Primary Unavailable Social History Type Status Start Date End Date Code Code Syst em Smoking History Never smoker (Never Smoked) 325504859 SNOMED CT Sex Female Medications Medication Start Date End Date Route Frequency Dose Code Code System Medication Instructions Home Meds Meclizine HCl 25MG Oral Tablet 01/30/2022 03/26/2022 ORAL EVERY 6 HOURS 1 TABLET 794044 RxNorm TAKE 1 TABLET ORAL EVERY 6 HOURS as needed for dizziness Ondansetron 4MG Oral Tablet, Disintegrating 03/26/2022 08/09/2022 ORAL NEEDED EVERY 6 HOURS 1 TABLET 908073 RxNorm TAKE 1 TABLET ORAL NEEDED EVERY 6 HOURS FOR Nausea/Vomi ting Benzonatate 200MG Oral Capsule, Liquid Filled 03/26/2022 08/09/2022 ORAL NEEDED THREE TIMES A DAY 1 CAPSULE 822543 RxNorm TAKE 1 CAPSULE ORAL NEEDED THREE TIMES A DAY Ibuprofen 200MG Oral Tablet 08/09/2022 11/17/2022 ORAL THREE TIMES A DAY 4 TABLET 655248 RxNorm TAKE 4 TABLET ORAL THREE TIMES A DAY TAKE WITH FOOD Zofran 4MG Oral Tablet 11/17/2022 02/16/2024 ORAL EVERY 6 HOURS 1 TABLET 732371 RxNorm TAKE 1 TABLET ORAL EVERY 6 [...] Date Status Code Code System DEPRESSION active 11134244 SNOMED-CT LIGHTHEADED active 994255630 SNOMED-C T TACHYCARDIA active 9639127 SNOMED-C T OBESITY active 533100525 SNOMED-CT Allergies and Adverse Reactions Allergy Substance Reaction Severity Start Date Concern Status Co de Code System PENICILLINS (CLASS) RASH (SNOMED-CT: null) Active 43314 RxNorm AMOXICILLIN Hives (SNOMED-CT: 483818639) Active Plan of Treatment US PELVIC / TV 10/14/2023 US PELVIC / TV 05/30/2022 US PELVIC / TV 05/16/2022 LAB DRAW 15MIN 04/18/2022 Encounters Encounter Diagnosis Start Date Code Code Sys tem Other primary ovarian failure 12/17/2021 SNOMED-CT Personal Care Team Section Performer Name Performer Role Active Date Inactive Da te
--- OUTSIDE RECORDS SUMMARY | 2024-12-08 08:55 | XMS_ITS ---
Author Organization Unknown Address [address] [place] [address] [phone] Phone Care Team Providers Care Executive Director Name Role Phone YU King Attending Unavailable KATIE Guaman Primary Unavailable Results CBC W/ DIFFERENTIAL* - Colle ct Date/Time: 04/18/2022 15:05 [facility] ID: [id number] [address] [place], [place], [address] LOINC: 85331-4 Test Value Unit Reference Range Code Code System Flag WBC 10.94 th/cmm L=5.00 H=10.00 6690-2 LOINC H NEUT % 58.5 % L=40.0 H=80.0 LYMPH % 32.6 % L=10.0 H=50.0 MONO % 7.2 % L=2.0 H=12.0 48752-0 LOINC EOS % 1.0 % L=0.0 H=8.0 BASO % 0.5 % L=0.0 H=3.0 IG % 0.2 % L=0.0 H=1.1 2514-8 LOINC NRBC % 0.0 % L=0.0 H=0.0 82057-2 LOINC NEUT abs count 6.4 th/cmm L=1.6 H=8.4 751-8 LOINC LYMPH abs count 3.6 th/cmm L=1.5 H=4.0 731-0 LOINC MONO abs count 0.8 th/cmm L=0.2 H=1.0 742-7 LOINC EOS abs count 0.1 th/cmm L=0.0 H=0.5 711-2 LOINC BASO abs count 0.1 th/cmm L=0.0 H=0.2 704-7 LOINC IG abs count 0.0 th/cmm L=0.0 H=0.1 14632-5 LOINC NRBC abs count 0.0 mil/cmm L=0.0 H=0.0 28800-0 LOINC RBC 4.37 mil/cmm L=3.90 H=5.40 789-8 LOINC HEMOGLOBIN 11.4 gm/dL L=12.0 H=16.0 718-7 LOINC L HEMATOCRIT 35 % L=37 H=47 4544-3 LOINC L MCV 81 fL L=82 H=92 787-2 LOINC L MCH 26.1 pg L=27.0 H=31.0 785-6 LOINC L MCHC 32.4 % L=32.0 H=36.0 786-4 LOINC RDW-SD 44.1 fL L=39.0 H=49.0 788-0 LOINC PLATELET COUNT 483 th/cmm L=150 H=450 777-3 LOINC H COMPREHENSIVE METABOLIC PANE L (CMP) - Collect Date/Time: 04/18/2022 15:05 [facility] ID: [id number] [address] [place], [place], [address] LOINC: 75805-0 Test Value Unit Reference Range Code Code System Flag GLUCOSE 86 mg/dL L=70 H=116 2345-7 LOINC BUN 6 mg/dL L=6 H=25 3094-0 LOINC CREATININE 0.67 mg/dL L=0.51 H=0.95 2160-0 LOINC SODIUM SERUM 135 mmol/L L=136 H=145 2951-2 LOINC L POTASSIUM SERUM 4.0 mmol/L L=3.4 H=5.2 2823-3 LOINC CHLORIDE SERUM 100 mmol/L L=96 H=110 2075-0 LOINC CARBON DIOXIDE (CO2) 26 mmol/L L=22 H=34 2028-9 LOINC ANION GAP 8.8 mmol/L 79820-2 LOINC CALCIUM SERUM 8.8 mg/dL L=8.2 H=10.2 04233-8 LOINC BILIRUBIN TOTAL 0.3 mg/dL L=0.0 H=1.3 1975-2 LOINC ALK. PHOS. 87 U/L L=46 H=116 6768-6 LOINC SGOT (AST) 11 U/L L=15 H=37 1920-8 LOINC L SGPT (ALT) 20 U/L L=12 H=78 1742-6 LOINC TOTAL PROTEIN 7.9 gm/dL L=6.0 H=8.0 2885-2 LOINC ALBUMIN 3.4 gm/dL L=3.4 H=5.0 1751-7 LOINC AGE 31 years eGFR (non-Afr.Amer.) 103 mL/min 39389-7 LOINC eGFR (Afr-Namibian) > 120 mL/min 47726-9 [facility] THYROID TESTING CASCADE* - C ollect Date/Time: 04/18/2022 15:05 [facility] ID: [id number] [address] [place] [address], [address] LOINC: 3016-3 Test Value Unit Reference Range Code Code System Flag TSH. 2.320 uIU/mL L=0.360 H=3.740 3014-8 [facility] LIPID PANEL* - Collect Date/ Time: 04/18/2022 15:05 [facility] ID: [id number] [address] [place] [address], [id number] LOINC: Test Value Unit Reference Range Code Code System Flag FASTING STATUS: NON FASTING CHOLESTEROL 172 mg/dL L=0 H=200 2093-3 LOINC TRIGLYCERIDES 172 mg/dL L=40 H=163 2571-8 LOINC H HDL 59 mg/dL L=36 H=77 2085-9 LOINC non-HDL-C 113 mg/dL L=0 H=160 64416-9 LOINC LDL (CALC) 79 mg/dL L=0 H=130 63103-1 LOINC % HDL 34.3 % Chol/HDL Ratio 2.9 L=0.0 H=4.4 9830-1 LOINC CHD Relative Risk 0.7 x Avg L=0.0 H=1.0 LDL/HDL Ratio 1.3 L=0.0 H=3.2 19982-3 [facility] CHD Relative Risk. 0.4 x Avg L=0.0 H=1.0 Social History Type Status Start Date End Date Code Code Syst em Smoking History Never smoker (Never Smoked) 263631207 SNOMED CT Sex Female Medications Medication Start Date End Date Route Frequency Dose Code Code System Medication Instructions Home Meds Ondansetron 4MG Oral Tablet, Disintegrating 03/26/2022 08/09/2022 ORAL NEEDED EVERY 6 HOURS 1 TABLET 353255 RxNorm TAKE 1 TABLET ORAL NEEDED EVERY 6 HOURS FOR Nausea/Vomiting Benzonatate 200MG Oral Capsule, Liquid Filled 03/26/2022 08/09/2022 ORAL NEEDED THREE TIMES A DAY 1 CAPSULE 311479 RxNorm TAKE 1 CAPSULE ORAL NEEDED THREE TIMES A DAY Ibuprofen 200MG Oral Tablet 08/09/2022 11/17/2022 ORAL THREE TIMES A DAY 4 TABLET 928039 RxNorm TAKE 4 TABLET ORAL THREE TIMES A DAY TAKE WITH FOOD Zofran 4MG Oral Tablet 11/17/2022 02/16/2024 ORAL EVERY 6 HOURS 1 TABLET 537152 RxNorm TAKE 1 TABLET ORAL EVERY 6 [...] Date Status Code Code System DEPRESSION active 26373787 SNOMED-CT LIGHTHEADED active 853606287 SNOMED-C T TACHYCARDIA active 7873583 SNOMED-C T OBESITY active 618934368 SNOMED-CT Allergies and Adverse Reactions Allergy Substance Reaction Severity Start Date Concern Status Co de Code System PENICILLINS (CLASS) RASH (SNOMED-CT: null) Active 54826 RxNorm AMOXICILLIN Hives (SNOMED-CT: 741922013) Active Plan of Treatment US PELVIC / TV 10/14/2023 US PELVIC / TV 05/30/2022 US PELVIC / TV 05/16/2022 LAB DRAW 15MIN 04/18/2022 Encounters Encounter Diagnosis Start Date Code Code Sys tem Major depressive disorder, s anika episode, severe without psychotic features 04/18/2022 SNOMED-CT Personal Care Team Section Performer Name Performer Role Active Date Inactive Da te
--- OUTSIDE RECORDS SUMMARY | 2024-12-08 08:55 | XMS_ITS ---
Author Organization Unknown Address [address] [place] [phone] Phone Care Team Providers Care Cooperative Education Director Name Role Phone KATIE Guaman Attending Unavailable Results US PELVIC TRANSVAGINAL* - Co mpleted: 05/30/2022 10:43 LOINC: PELVIC ULTRASOUND: Transabdominal and transvaginal exams were performed. Comparison is made with CT of the abdomen and pelvis dated 27 May 2021. The uterus is anteverted and measures 6.9 x 3.2 x 4.1 cm. The uterus is suboptimally visualized on transvaginal scanning. There is significant artifact in the body and fundus. The endometrial stripe is not well seen. There is no gross evidence of a fibroid. The uterus appears normal on prior CT. The ovaries were unable to be visualized either transabdominally or transvaginally. The ovaries appeared normal on prior CT. There is no free fluid or hydronephrosis. IMPRESSION: Limited exam. The ovaries were unable to be visualized. The uterus and endometrial stripe are not well evaluated. Dictated by: CEO RAMON AGUILA MD Transcribed by: BENJIE 05/30/22/15:35 [id number] Electronically Reviewed and Signed By: RAMON AGUILA MD 05/30/22 16:32 Copy for: KATIE Guaman via fax Copy for: 185 HEALTH INFORMATION MGMT Social History Type Status Start Date End Date Code Code Syst em Smoking History Never smoker (Never Smoked) 147333414 SNOMED CT Sex Female Medications Medication Start Date End Date Route Frequency Dose Code Code System Medication Instructions Home Meds Ondansetron 4MG Oral Tablet, Disintegrating 03/26/2022 08/09/2022 ORAL NEEDED EVERY 6 HOURS 1 TABLET 318601 RxNorm TAKE 1 TABLET ORAL NEEDED EVERY 6 HOURS FOR Nausea/Vomiting Benzonatate 200MG Oral Capsule, Liquid Filled 03/26/2022 08/09/2022 ORAL NEEDED THREE TIMES A DAY 1 CAPSULE 661267 RxNorm TAKE 1 CAPSULE ORAL NEEDED THREE TIMES A DAY Ibuprofen 200MG Oral Tablet 08/09/2022 11/17/2022 ORAL THREE TIMES A DAY 4 TABLET 496002 RxNorm TAKE 4 TABLET ORAL THREE TIMES A DAY TAKE WITH FOOD Zofran 4MG Oral Tablet 11/17/2022 02/16/2024 ORAL EVERY 6 HOURS 1 TABLET 920650 RxNorm TAKE 1 TABLET ORAL EVERY 6 [...] Date Status Code Code System DEPRESSION active 56934792 SNOMED-CT LIGHTHEADED active 784984966 SNOMED-C T TACHYCARDIA active 7299474 SNOMED-C T OBESITY active 437771315 SNOMED-CT Allergies and Adverse Reactions Allergy Substance Reaction Severity Start Date Concern Status Co de Code System PENICILLINS (CLASS) RASH (SNOMED-CT: null) Active 09291 RxNorm AMOXICILLIN Hives (SNOMED-CT: 892021526) Active Plan of Treatment US PELVIC / TV 10/14/2023 US PELVIC / TV 05/30/2022 US PELVIC / TV 05/16/2022 LAB DRAW 15MIN 04/18/2022 Encounters Encounter Diagnosis Start Date Code Code Sys tem Unspecified dyspareunia 05/30/2022 SNOM ED-CT Personal Care Team Section Performer Name Performer Role Active Date Inactive Da te
--- OUTSIDE RECORDS SUMMARY | 2024-12-08 08:55 | XMS_ITS ---
Author Organization Unknown Address [address] [place] [address] [phone] Phone Care Team Providers Care Parachute Line Tier Name Role Phone TK MITCHELL Registered Nurse Unavailable IRAM WHEELER Registered Nurse Unavailable TINY Angulo Attending Unavailable BRITTANI LINDSEY Unavailable KATIE Guaman Primary Unavailable UNLISTED PROVIDER - REQUESTED Xhandoff Un available Results STREP GROUP A ANTIGEN ASSAY - Collect Date/Time: 03/26/2022 11:01 [facility] ID: [id number] [address] [place] [address], [address] LOINC: 90040-3 Test Value Unit Reference Range Code Code System Flag GRP A STREP ANTIGEN NOT DETECTED 6556-5 LOINC [facility] COVID RHEONIX* - Javier ect Date/Time: 03/26/2022 11:01 [facility] ID: [id number] [address] [place] [address], [id number] LOINC: 22009-0 Test Value Unit Reference Range Code Code System Flag Tier- SYMPTOMS 64150-8 LOINC SARS COV2 RNA: POSITIVE REFERENCE RAN GE: NEGAT 79196-3 LOINC A XR CHEST PORTABLE OR 1V - Co mpleted: 03/26/2022 17:32 LOINC: CHEST X-RAY, 1 VIEW: Comparison CT scan is 04/17/2021. The heart is normal in size. The lungs are clear. The mediastinal structures and pleura appear intact. CONCLUSION:Normal chest. Dictated by: ZELDA CALZADA MD Transcribed by: BENJIE 03/28/22/08:27 [id number] Electronically Reviewed and Signed By: CLEVELAND CALZADA MD 03/30/22 15:47 Copy for: 185 HEALTH INFORMATION MGMT DISCHARGED Social History Type Status Start Date End Date Code Code Syst em Smoking History Never smoker (Never Smoked) 559197770 SNOMED CT Sex Female Vital Signs Vital Sign Value Unit [place] Value [place] Unit Date/Time Recent/Initial? Code Code System Body Mass Index 52.75 kg/m2 03/26/2022 11:08 Initial 47025 -5 LOINC Systolic Blood Pressure 141 mm[Hg] 03/26/2022 11:08 Initial 8480- 6 LOINC Diastolic Blood Pressure 92 mm[Hg] 03/26/2022 11:08 Initial 8462- 4 LOINC Body Surface Area 2.57 m2 03/26/2022 11:08 Initial 3140- 1 LOINC Height 165.100 0 cm 65.00 in 03/26/2022 11:08 Initial 8302- 2 LOINC O2 Saturation 96 % 2021 12:47 Most Recent 62580 -5 LOINC O2 Saturation 96 % 2021 11:08 Initial 29033 -5 LOINC Pulse 92.0 /min 03/26/2022 12:47 Most Recent 8867- 4 LOINC Pulse 97.0 /min 03/26/2022 11:08 Initial 8867- 4 LOINC Respiration 16 /min 03/26/20 12:47 Most Recent 9279- 1 LOINC Respiration 18 /min 03/26/20 11:08 Initial 9279- 1 LOINC Temperature 36.7 Alyssa 98.1 F 03/26/20 11:08 Initial 8310- 5 LOINC Weight 143.79 kg 317.00 lbs 03/26/2022 11:08 Initial 33405 -7 [facility] Medications Medication Start Date End Date Route Frequency Dose Code Code System Medication Instructions Home Meds Meclizine HCl 25MG Oral Tablet 01/30/2022 03/26/2022 ORAL EVERY 6 HOURS 1 TABLET 730580 RxNorm TAKE 1 TABLET ORAL EVERY 6 HOURS as needed for dizziness Ondansetron 4MG Oral Tablet, Disintegrating 03/26/2022 08/09/2022 ORAL NEEDED EVERY 6 HOURS 1 TABLET 423887 RxNorm TAKE 1 TABLET ORAL NEEDED EVERY 6 HOURS FOR Nausea/Vomi ting Benzonatate 200MG Oral Capsule, Liquid Filled 03/26/2022 08/09/2022 ORAL NEEDED THREE TIMES A DAY 1 CAPSULE 325146 RxNorm TAKE 1 CAPSULE ORAL NEEDED THREE TIMES A DAY Ibuprofen 200MG Oral Tablet 08/09/2022 11/17/2022 ORAL THREE TIMES A DAY 4 TABLET 727964 RxNorm TAKE 4 TABLET ORAL THREE TIMES A DAY TAKE WITH FOOD Zofran 4MG Oral Tablet 11/17/2022 02/16/2024 ORAL EVERY 6 HOURS 1 TABLET 739313 RxNorm TAKE 1 TABLET ORAL EVERY 6 [...] Date Status Code Code System DEPRESSION active 71021247 SNOMED-CT LIGHTHEADED active 046876751 SNOMED-C T TACHYCARDIA active 4135232 SNOMED-C T OBESITY active 690579992 SNOMED-CT Allergies and Adverse Reactions Allergy Substance Reaction Severity Start Date Concern Status Co de Code System PENICILLINS (CLASS) RASH (SNOMED-CT: null) Active 45090 RxNorm AMOXICILLIN Hives (SNOMED-CT: 301014574) Active Plan of Treatment US PELVIC / TV 10/14/2023 US PELVIC / TV 05/30/2022 US PELVIC / TV 05/16/2022 LAB DRAW 15MIN 04/18/2022 Encounters Encounter Diagnosis Start Date Code Code Sys tem COVID-19 03/26/2022 SNOMED-CT Personal Care Team Section Performer Name Performer Role Active Date Inactive Jong alonzo
--- OUTSIDE RECORDS SUMMARY | 2024-12-08 08:56 | XMS_ITS ---
Author Organization Unknown Address [address] [place] [phone] Phone Care Team Providers Care White Washer Name Role Phone ALEK ANDRADE Registered Nurse Unavailable MEE Casillas Attending Unavailable KATIE Guaman Primary Unavailable UNLISTED PROVIDER - REQUESTED Xhandoff Un available Results [facility] COVID FLU RSV GENEXPE RT - Collect Date/Time: 11/17/2022 22:49 [facility] ID: [id number] [address] [place], [place], [phone] LOINC: 65270-8 Test Value Unit Reference Range Code Code System Flag COVID NEGATIVE Normal: Negative 70864-7 LOINC INFLUENZA A DNA NEGATIVE Normal: Negative 03308-1 LOINC INFLUENZA B DNA NEGATIVE Normal: Negative 19450-1 LOINC RSV DNA NEGATIVE Normal: Negative 25516-3 LOINC Social History Type Status Start Date End Date Code Code Syst em Smoking History Never smoker (Never Smoked) 128722556 SNOMED CT Sex Female Vital Signs Vital Sign Value Unit [place] Value [place] Unit Date/Time Recent/Initial? Code Code System Body Mass Index 56.64 kg/m2 11/17/2022 21:42 Initial 12687 -5 LOINC Systolic Blood Pressure 170 mm[Hg] 11/17/2022 21:42 Initial 8480- 6 LOINC Diastolic Blood Pressure 94 mm[Hg] 11/17/2022 21:42 Initial 8462- 4 LOINC Body Surface Area 2.60 m2 11/17/2022 21:42 Initial 3140- 1 LOINC Height 162.560 0 cm 64.00 in 11/17/2022 21:42 Initial 8302- 2 LOINC O2 Saturation 95 % 2022 21:42 Initial 56895 -5 LOINC Pulse 88.0 /min 11/17/2022 21:42 Initial 8867- 4 LOINC Respiration 18 /min 11/17/19 21:42 Initial 9279- 1 LOINC Temperature 36.3 Alyssa 97.3 F 11/17/19 21:42 Initial 8310- 5 LOINC Weight 149.69 kg 330.00 lbs 11/17/2022 21:42 Initial 68546 -7 LOINC Medications Medication Start Date End Date Route Frequency Dose Code Code System Medication Instructions Home Meds Ibuprofen 200MG Oral Tablet 08/09/2022 11/17/2022 ORAL THREE TIMES A DAY 4 TABLET 961950 RxNorm TAKE 4 TABLET ORAL THREE TIMES A DAY TAKE WITH FOOD Zofran 4MG Oral Tablet 11/17/2022 02/16/2024 ORAL EVERY 6 HOURS 1 TABLET 352081 RxNorm TAKE 1 TABLET ORAL EVERY 6 [...] Date Status Code Code System DEPRESSION active 54637316 SNOMED-CT LIGHTHEADED active 304324450 SNOMED-C T TACHYCARDIA active 3415872 SNOMED-C T OBESITY active 186942294 SNOMED-CT Allergies and Adverse Reactions Allergy Substance Reaction Severity Start Date Concern Status Co de Code System PENICILLINS (CLASS) RASH (SNOMED-CT: null) Active 76695 RxNorm AMOXICILLIN Hives (SNOMED-CT: 178754616) Active Plan of Treatment US PELVIC / TV 10/14/2023 US PELVIC / TV 05/30/2022 US PELVIC / TV 05/16/2022 LAB DRAW 15MIN 04/18/2022 Encounters Encounter Diagnosis Start Date Code Code Sys tem Wheezing 11/17/2022 SNOMED-CT Personal Care Team Section Performer Name Performer Role Active Date Inactive Da clinton
--- OUTSIDE RECORDS SUMMARY | 2024-12-08 08:56 | XMS_ITS ---
Author Organization Unknown Address [address] [place] [phone] Phone Care Team Providers Care Metal Cabinet Finisher Name Role Phone ALEK ANDRADE Registered Nurse Unavailable YEN Alcantara Attending Unavailable [facility]LL[facility] Unavailable KATIE Guaman Primary Unavailable UNLISTED PROVIDER - REQUESTED Xhandoff Un available Results TEST QUAL (URINE) - Collect Date/Time: 08/09/2022 10:30 [facility] ID: [id number] [address] [place] [address], [address] LOINC: 2106-3 Test Value Unit Reference Range Code Code System Flag TEST NEGATIVE 2106-3 LOINC D-DIMER - Collect Date/Time: 08/09/2022 10:00 [facility] ID: [id number] [address] [place] [address], [address] LOINC: 28287-5 Test Value Unit Reference Range Code Code System Flag D-DIMER 0.22 mg/L L=0.19 H=0.50 19812-3 LOINC TROPONIN HIGH SENSITIVITY* - Collect Date/Time: 08/09/2022 10:00 [facility] ID: [id number] [address] [place] [address], [address] LOINC: 74280-8 Test Value Unit Reference Range Code Code System Flag TROPONIN HS < 4.0 pg/mL L=0.0 H=60.4 Specimen seq. Random SED RATE* - Collect Date/Lionel e: 08/09/2022 10:00 [facility] ID: [id number] [address] [place], [place], [address] LOINC: 4537-7 Test Value Unit Reference Range Code Code System Flag SED. RATE 28 mm/hr L=0 H=20 4537-7 LOINC H C REACTIVE PROTEIN HIGH SENS ITIVITY* - Collect Date/Time: 08/09/2022 10:00 [facility] ID: [id number] [address] [place] [address], [address] LOINC: 18849-8 Test Value Unit Reference Range Code Code System Flag CRP-HIGH SENS. 22.81 mg/L L=0.00 H=3.00 19112-4 LOINC H CRP-HIGH SENS 2.28 mg/dL L=0.00 H=0.30 03120-1 LOINC H CBC W/ DIFFERENTIAL* - Colle ct Date/Time: 08/09/2022 10:00 [facility] ID: [id number] [address] [place] [address], [address] LOINC: 25583-8 Test Value Unit Reference Range Code Code System Flag WBC 8.04 th/cmm L=5.00 H=10.00 6690-2 LOINC NEUT % 63.9 % L=40.0 H=80.0 LYMPH % 27.7 % L=10.0 H=50.0 MONO % 6.5 % L=2.0 H=12.0 96157-6 LOINC EOS % 1.0 % L=0.0 H=8.0 BASO % 0.7 % L=0.0 H=3.0 IG % 0.2 % L=0.0 H=1.1 2514-8 LOINC NRBC % 0.0 % L=0.0 H=0.0 80940-1 LOINC NEUT abs count 5.1 th/cmm L=1.6 H=8.4 751-8 LOINC LYMPH abs count 2.2 th/cmm L=1.5 H=4.0 731-0 LOINC MONO abs count 0.5 th/cmm L=0.2 H=1.0 742-7 LOINC EOS abs count 0.1 th/cmm L=0.0 H=0.5 711-2 LOINC BASO abs count 0.1 th/cmm L=0.0 H=0.2 704-7 LOINC IG abs count 0.0 th/cmm L=0.0 H=0.1 76903-5 LOINC NRBC abs count 0.0 mil/cmm L=0.0 H=0.0 66659-0 LOINC RBC 4.34 mil/cmm L=3.90 H=5.40 789-8 LOINC HEMOGLOBIN 11.1 gm/dL L=12.0 H=16.0 718-7 LOINC L HEMATOCRIT 36 % L=37 H=47 4544-3 LOINC L MCV 82 fL L=82 H=92 787-2 LOINC MCH 25.6 pg L=27.0 H=31.0 785-6 LOINC L MCHC 31.3 % L=32.0 H=36.0 786-4 LOINC L RDW-SD 44.6 fL L=39.0 H=49.0 788-0 LOINC PLATELET COUNT 387 th/cmm L=150 H=450 777-3 LOINC BASIC METABOLIC PANEL (BMP) - Collect Date/Time: 08/09/2022 10:00 [facility] ID: [id number] [address] [place], [place], [address] LOINC: 68826-1 Test Value Unit Reference Range Code Code System Flag GLUCOSE 94 mg/dL L=70 H=116 2345-7 LOINC BUN 9 mg/dL L=6 H=25 3094-0 LOINC CREATININE 0.59 mg/dL L=0.51 H=0.95 2160-0 LOINC SODIUM SERUM 136 mmol/L L=136 H=145 2951-2 LOINC POTASSIUM SERUM 4.3 mmol/L L=3.4 H=5.2 2823-3 LOINC CHLORIDE SERUM 101 mmol/L L=96 H=110 2075-0 LOINC CARBON DIOXIDE (CO2) 28 mmol/L L=22 H=34 2028-9 LOINC ANION GAP 7.2 mmol/L 01831-0 LOINC CALCIUM SERUM 9.0 mg/dL L=8.2 H=10.2 04930-3 LOINC AGE 31 years eGFR (non-Afr.Amer.) 120 mL/min 24814-1 LOINC eGFR (Afr-Belarusian) > 120 mL/min 00231-3 LOINC XR CHEST 2V PA AND LATERAL - Completed: 08/09/2022 08:35 LOINC: [facility] RADIOLOGY [place], [place] [address] [employer] HEL[employer] REPORT Patient Name: ELSISATURNINO MRN: Sex: : Age: [id number] F [id number] Account: StayType: Accession: Admit: [id number] E/R [id number] 08/09/2022 Ordered: Order ID: Ordering Provider: [id number] NANCY LI Completed: CompletedBy: Resulted: By: [id number] [facility] [id number] [facility] Study Description: XR CHEST 2V PA AND LATERAL Study Reason: ChestPain Technique: 2D digital imaging was performed of the chest. 2 images were obtained. Comparison: Comparison examination is 03/26/2022. FINDINGS: MEDIASTINUM: Normal. HEART: Normal. PULMONARY VASCULATURE: Normal. LUNGS: Clear. PLEURAL SPACE: No pleural effusion or pneumothorax. BONE:Within normal limits for the patient's age. OTHER FINDINGS:Normal. IMPRESSION: No acute pulmonary findings. Report Digitally Signed by Cordell Adams on 08/09/2022 08:47 AM EDT Social History Type Status Start Date End Date Code Code Syst em Smoking History Never smoker (Never Smoked) 794573905 SNOMED CT Sex Female Vital Signs Vital Sign Value Unit [place] Value [place] Unit Date/Time Recent/Initial? Code Code System Body Mass Index 56.75 kg/m2 08/09/2022 07:58 Initial 11314 -5 LOINC Systolic Blood Pressure 129 mm[Hg] 08/09/2022 12:00 Most Recent 8480- 6 LOINC Diastolic Blood Pressure 81 mm[Hg] 08/09/2022 12:00 Most Recent 8462- 4 LOINC Systolic Blood Pressure 136 mm[Hg] 08/09/2022 07:58 Initial 8480- 6 LOINC Diastolic Blood Pressure 79 mm[Hg] 08/09/2022 07:58 Initial 8462- 4 LOINC Body Surface Area 2.60 m2 08/09/2022 07:58 Initial 3140- 1 LOINC Height 162.560 0 cm 64.00 in 08/09/2022 07:58 Initial 8302- 2 LOINC O2 Saturation 95 % 2021 12:00 Most Recent 65122 -5 LOINC O2 Saturation 96 % 2021 07:58 Initial 80664 -5 LOINC Pulse 79.0 /min 08/09/2022 12:00 Most Recent 8867- 4 LOINC Pulse 97.0 /min 08/09/2022 07:58 Initial 8867- 4 LOINC Respiration 16 /min 08/09/20 22 12:00 Most Recent 9279- 1 LOINC Respiration 16 /min 08/09/20 22 07:58 Initial 9279- 1 LOINC Temperature 2.3 Alyssa 36.1 F 08/09/20 22 12:00 Most Recent 8310- 5 LOINC Temperature 35.3 Alyssa 95.5 F 08/09/20 22 07:58 Initial 8310- 5 LOINC Weight 149.96 kg 330.60 lbs 08/09/2022 07:58 Initial 84934 -7 [facility] Medication Start Date End Date Route Frequency Dose Code Code System Medication Instructions Home Meds Ondansetron 4MG Oral Tablet, Disintegrating 03/26/2022 08/09/2022 ORAL NEEDED EVERY 6 HOURS 1 TABLET 797922 RxNorm TAKE 1 TABLET ORAL NEEDED EVERY 6 HOURS FOR Nausea/Vomiting Benzonatate 200MG Oral Capsule, Liquid Filled 03/26/2022 08/09/2022 ORAL NEEDED THREE TIMES A DAY 1 CAPSULE 373019 RxNorm TAKE 1 CAPSULE ORAL NEEDED THREE TIMES A DAY Ibuprofen 200MG Oral Tablet 08/09/2022 11/17/2022 ORAL THREE TIMES A DAY 4 TABLET 978240 RxNorm TAKE 4 TABLET ORAL THREE TIMES A DAY TAKE WITH FOOD Zofran 4MG Oral Tablet 11/17/2022 02/16/2024 ORAL EVERY 6 HOURS 1 TABLET 238389 RxNorm TAKE 1 TABLET ORAL EVERY 6 HOURS FOR Nausea Assessment You had the following problems:DEPRESSIONLIGHTHEADEDTACHYCARDIA Hospital Discharge Instructions Should you have any questions prior to discharge, please contact a member of your healthcare team. If you have left the hospital and have any questions, please contact your primary care physician. Reason For Referral No Data Found Procedures Procedure Name Date Status Code Code Syste m Both tonsils completed 45079825 SNOMEDCT Problems Problem Start Date Resolved Date Status Code Code System DEPRESSION active 22507442 SNOMED-CT LIGHTHEADED active 147202471 SNOMED-C T TACHYCARDIA active 7670857 SNOMED-C T OBESITY active 912434022 SNOMED-CT Allergies and Adverse Reactions Allergy Substance Reaction Severity Start Date Concern Status Co de Code System PENICILLINS (CLASS) RASH (SNOMED-CT: null) Active 37400 RxNorm AMOXICILLIN Hives (SNOMED-CT: 603784622) Active Plan of Treatment US PELVIC / TV 10/14/2023 US PELVIC / TV 05/30/2022 US PELVIC / TV 05/16/2022 LAB DRAW 15MIN 04/18/2022 Encounters Encounter Diagnosis Start Date Code Code Sys tem Disease of pericardium, unspecified 08/09/2022 SNOMED-CT Personal Care Team Section Performer Name Performer Role Active Date Inactive Da te
--- OUTSIDE RECORDS SUMMARY | 2024-12-08 08:56 | XMS_ITS ---
Author Organization Unknown Address [address] [place] [address] [phone] Phone Care Team Providers Care Termite Control Technician Name Role Phone FAISAL HEALY Registered Nurse Unavailable ANIA Angulo Attending Unavailable KATIE Guaman Primary Unavailable UNLISTED PROVIDER - REQUESTED Xhandoff Un available Results CULT URINE CULTURE* - Collec t Date/Time: 04/22/2023 11:50 [facility] ID: [id number] [address] [place] [address], [phone] LOINC: 630-4 Test Value Unit Reference Range Code Code System Flag COLLECTION MODE: CLEAN CATCH 31982-7 LOINC URINALYSIS WITH REFLEX CULT IF POSITIVE* - Collect Date/Time: 04/22/2023 11:50 [facility] ID: [id number] [address] [place] [address], [address] LOINC: 34617-7 Test Value Unit Reference Range Code Code System Flag COLLECTION MODE: CLEAN CATCH 77436-2 LOINC Color STRAW yellow 5778-6 LOINC Appearance HAZY clear 5767-9 LOINC Glucose urine NEGATIVE negative mg/dl 54736-1 LOINC Bilirubin NEGATIVE negative 5770-3 LOINC Ketones NEGATIVE negative mg/dl 2514-8 LOINC Spec gravity 1.010 1.003 - 1.030 5811-5 LOINC pH urine 7.5 5.0 - 7.0 2756-5 LOINC A Protein NEGATIVE negative mg/dl 30327-0 LOINC Urobilinogen 0.2 <or= 1 EU/dl 85899-9 LOINC Nitrite. NEGATIVE negative 5802-4 LOINC Blood NEGATIVE negative 5794-3 LOINC Leukocytes. SMALL negative A MICROSCOPIC INDICATED WBCs. 5-10 0-5 / hpf 42032-5 LOINC RBCs none 0-5 / hpf 60623-5 LOINC Epith cells 5-10 0-5 / hpf 27408-2 LOINC Cell types squamous Crystals none none Bacteria minimal none Mucus none none 8247-9 LOINC Casts none none /lpf 34228-9 LOINC Other 00826-4 LOINC TEST QUAL (URINE) - Collect Date/Time: 04/22/2023 11:50 [facility] ID: [id number] [address] [place] [address], [address] LOINC: 2106-3 Test Value Unit Reference Range Code Code System Flag TEST NEGATIVE 2105-3 LOINC LIPASE* NEW - Collect Date/T michelle: 04/22/2023 11:50 [facility] ID: [id number] [address] [place] [address], [phone] LOINC: 3040-3 Test Value Unit Reference Range Code Code System Flag LIPASE. 19 U/L L=16 H=77 COMPREHENSIVE METABOLIC PANE L (CMP) - Collect Date/Time: 04/22/2023 11:50 [facility] ID: [id number] [address] [place] [address], [address] LOINC: 71379-7 Test Value Unit Reference Range Code Code System Flag GLUCOSE 88 mg/dL L=70 H=116 2345-7 LOINC BUN 7 mg/dL L=6 H=25 3094-0 LOINC CREATININE 0.70 mg/dL L=0.51 H=0.95 2160-0 LOINC SODIUM SERUM 136 mmol/L L=136 H=145 2951-2 LOINC POTASSIUM SERUM 4.4 mmol/L L=3.4 H=5.2 2823-3 LOINC CHLORIDE SERUM 101 mmol/L L=96 H=110 2075-0 LOINC CARBON DIOXIDE (CO2) 26 mmol/L L=22 H=34 2028-9 LOINC ANION GAP 8.7 mmol/L 53394-7 LOINC CALCIUM SERUM 9.2 mg/dL L=8.2 H=10.2 42485-8 LOINC BILIRUBIN TOTAL 0.3 mg/dL L=0.0 H=1.3 1975-2 LOINC ALK. PHOS. 76 U/L L=46 H=116 6768-6 LOINC SGOT (AST) 15 U/L L=15 H=37 1920-8 LOINC SGPT (ALT) 19 U/L L=12 H=78 1742-6 LOINC TOTAL PROTEIN 7.6 gm/dL L=6.0 H=8.0 2885-2 LOINC ALBUMIN 3.3 gm/dL L=3.4 H=5.0 1751-7 LOINC L AGE 32 years eGFR (non-Afr.Amer.) 98 mL/min 86680-6 LOINC eGFR (Afr-Bahamian) 118 mL/min 75763-5 LOINC CBC W/ DIFFERENTIAL* - Colle ct Date/Time: 04/22/2023 11:50 [facility] ID: [id number] [address] [place], [place], [address] LOINC: 71278-7 Test Value Unit Reference Range Code Code System Flag WBC 9.38 th/cmm L=5.00 H=10.00 6690-2 LOINC NEUT % 59.8 % L=40.0 H=80.0 LYMPH % 32.2 % L=10.0 H=50.0 MONO % 5.8 % L=2.0 H=12.0 91986-6 LOINC EOS % 1.2 % L=0.0 H=8.0 BASO % 0.7 % L=0.0 H=3.0 IG % 0.3 % L=0.0 H=1.1 2514-8 LOINC NRBC % 0.0 % L=0.0 H=0.0 56612-9 LOINC NEUT abs count 5.6 th/cmm L=1.6 H=8.4 751-8 LOINC LYMPH abs count 3.0 th/cmm L=1.5 H=4.0 731-0 LOINC MONO abs count 0.5 th/cmm L=0.2 H=1.0 742-7 LOINC EOS abs count 0.1 th/cmm L=0.0 H=0.5 711-2 LOINC BASO abs count 0.1 th/cmm L=0.0 H=0.2 704-7 LOINC IG abs count 0.0 th/cmm L=0.0 H=0.1 49104-8 LOINC NRBC abs count 0.0 mil/cmm L=0.0 H=0.0 13402-4 LOINC RBC 4.35 mil/cmm L=3.90 H=5.40 789-8 LOINC HEMOGLOBIN 11.4 gm/dL L=12.0 H=16.0 718-7 LOINC L HEMATOCRIT 36 % L=37 H=47 4544-3 LOINC L MCV 82 fL L=82 H=92 787-2 LOINC MCH 26.2 pg L=27.0 H=31.0 785-6 LOINC L MCHC 32.0 % L=32.0 H=36.0 786-4 LOINC RDW-SD 42.2 fL L=39.0 H=49.0 788-0 LOINC PLATELET COUNT 383 th/cmm L=150 H=450 777-[address] ABD PELVIS W IV CONTRAST ONLY - Completed: 04/22/2023 12:40 LOINC: [facility] [place], [place] [address] 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 Contrast Material: Intravenous: 100 mL Omnipaque 350 administered Comparison: 05/27/2021 FINDINGS: The lung bases are clear. Questionable wall thickening of the distal esophagus subcentimeter short axis. Paraesophageal lymph nodes, nonspecific. Hepatic steatosis. The gallbladder, pancreas and spleen are unremarkable. The bilateral adrenal glands and kidneys are unremarkable. Urinary bladder is within normal limits. Normal caliber aorta. Subcentimeter short axis mesenteric and lymph nodes, unchanged. No bowel obstruction or bowel wall thickening. Normal appendix. Colonic diverticulosis. No free air or free fluid. 3.3 cm simple left ovarian cyst. No aggressive osseous lesions. IMPRESSION: No acute abdominal pelvic finding. Hepatic steatosis. Mild wall thickening of the distal esophagus. Correlate for symptoms of reflux esophagitis. Radiation Optimization: All CT scans at this facility use at least one of these dose optimization techniques: automated exposure control; mA and/or kV adjustment per patient size (includes targeted exams where dose is matched to clinical indication); or iterative reconstruction. Report Digitally Signed by Reji Carballo on 04/22/2023 12:56 PM EDT Social History Type Status Start Date End Date Code Code Syst em Smoking History Never smoker (Never Smoked) 525545047 SNOMED CT Sex Female Vital Signs Vital Sign Value Unit Latham Value Latham Unit Date/Time Recent/Initial? Code Code System Body Mass Index 56.88 kg/m2 04/22/2023 11:41 Initial 92276 -5 LOINC Systolic Blood Pressure 127 mm[Hg] 04/22/2023 13:20 Most Recent 8480- 6 LOINC Diastolic Blood Pressure 80 mm[Hg] 04/22/2023 13:20 Most Recent 8462- 4 LOINC Systolic Blood Pressure 138 mm[Hg] 04/22/2023 11:41 Initial 8480- 6 LOINC Diastolic Blood Pressure 67 mm[Hg] 04/22/2023 11:41 Initial 8462- 4 LOINC Body Surface Area 2.61 m2 04/22/2023 11:41 Initial 3140- 1 LOINC Height 162.560 0 cm 64.00 in 04/22/2023 11:41 Initial 8302- 2 LOINC O2 Saturation 100 % 2022 13:20 Most Recent 43762 -5 LOINC O2 Saturation 97 % 2022 11:41 Initial 52068 -5 LOINC Pulse 71.0 /min 04/22/2023 13:20 Most Recent 8867- 4 LOINC Pulse 89.0 /min 04/22/2023 11:41 Initial 8867- 4 LOINC Respiration 16 /min 04/22/20 13:20 Most Recent 9279- 1 LOINC Respiration 17 /min 04/22/20 11:41 Initial 9279- 1 LOINC Temperature 36.1 Alyssa 97.0 F 04/22/20 13:20 Most Recent 8310- 5 LOINC Temperature 36.1 Alyssa 97.0 F 04/22/20 11:41 Initial 8310- 5 LOINC Weight 150.30 kg 331.35 lbs 04/22/2023 11:41 Initial 90356 -7 LOINC Medications Medication Start Date End Date Route Frequency Dose Code Code System Medication Instructions Home Meds Zofran 4MG Oral Tablet 11/17/2022 02/16/2024 ORAL EVERY 6 HOURS 1 TABLET 249966 RxNorm TAKE 1 TABLET ORAL EVERY 6 [...] Date Status Code Code System DEPRESSION active 70941150 SNOMED-CT LIGHTHEADED active 886663882 SNOMED-C T TACHYCARDIA active 8876867 SNOMED-C T OBESITY active 930682028 SNOMED-CT Allergies and Adverse Reactions Allergy Substance Reaction Severity Start Date Concern Status Co de Code System PENICILLINS (CLASS) RASH (SNOMED-CT: null) Active 61943 RxNorm AMOXICILLIN Hives (SNOMED-CT: 154958911) Active Plan of Treatment US PELVIC / TV 10/14/2023 US PELVIC / TV 05/30/2022 US PELVIC / TV 05/16/2022 LAB DRAW 15MIN 04/18/2022 Encounters Encounter Diagnosis Start Date Code Code Sys tem Right upper quadrant pain 04/22/2023 902760729 SN OMED-CT Personal Care Team Section Performer Name Performer Role Active Date Inactive Da te
--- OUTSIDE RECORDS SUMMARY | 2024-12-08 08:57 | XMS_ITS ---
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 COMPARISON: No exams were available for comparison FINDINGS: UTERUS: Measures 7.5 cm length by 2.6 cm AP by 2.5 cm wide. There are no uterine fibroids. The endometrium thickness is 5 mm and appears homogeneous. There is no fluid in the endometrial canal CERVIX: Small nabothian cyst. RIGHT OVARY: Measures 2.7 x 1.3 x 1.5 cm No significant cysts nor masses evident in the right ovary. LEFT OVARY: Measures 2.5 x 1.1 x 1.7 cm No significant cysts nor masses evident in the left ovary. CUL-DE-SAC: No free fluid evident. IMPRESSION: 1. No significant focal findings in the uterus and ovaries 2. No free fluid. Report Digitally Signed by Rogelio Gabriel on 10/14/2023 04:48 PM EST 10/14/23.1650.[facility].to KATIE DOWNING via fax Social History Type Status Start Date End Date Code Code Syst em Smoking History Never smoker (Never Smoked) 726585476 SNOMED CT Sex Female Medications Medication Start Date End Date Route Frequency Dose Code Code System Medication Instructions Home Meds Zofran 4MG Oral Tablet 11/17/2022 02/16/2024 ORAL EVERY 6 HOURS 1 TABLET 349248 RxNorm TAKE 1 TABLET ORAL EVERY 6 [...] Date Status Code Code System DEPRESSION active 74764898 SNOMED-CT LIGHTHEADED active 846784340 SNOMED-C T TACHYCARDIA active 3809411 SNOMED-C T OBESITY active 613848851 SNOMED-CT Allergies and Adverse Reactions Allergy Substance Reaction Severity Start Date Concern Status Co de Code System PENICILLINS (CLASS) RASH (SNOMED-CT: null) Active 68650 RxNorm AMOXICILLIN Hives (SNOMED-CT: 275166817) Active Plan of Treatment US PELVIC / TV 10/14/2023 US PELVIC / TV 05/30/2022 US PELVIC / TV 05/16/2022 LAB DRAW 15MIN 04/18/2022 Encounters Encounter Diagnosis Start Date Code Code Sys tem Pelvic and perineal pain 10/14/2023 SNO MED-CT Personal Care Team Section Performer Name Performer Role Active Date Inactive Da te
--- OUTSIDE RECORDS SUMMARY | 2024-12-08 08:57 | XMS_ITS ---
Author Organization Unknown Address [address] [place] [address] [phone] Phone Care Team Providers Care Aviation Safety Officer Name Role Phone ROBERTO Romeo Attending Unavailable KATIE Guaman Primary Unavailable Results PAP THINPREP HPV REGARDLESS OF DX* - Collect Date/Time: 10/21/2023 17:50 [facility] ID: [id number] [address] [place], [place], [phone] LOINC: Test Value Unit Reference Range Code Code System Flag Report (See below) Social History Type Status Start Date End Date Code Code Syst em Smoking History Never smoker (Never Smoked) 950120191 SNOMED CT Sex Female Medications Medication Start Date End Date Route Frequency Dose Code Code System Medication Instructions Home Meds Zofran 4MG Oral Tablet 11/17/2022 02/16/2024 ORAL EVERY 6 HOURS 1 TABLET 189930 RxNorm TAKE 1 TABLET ORAL EVERY 6 HOURS FOR Nausea Assessment You had the following problems:[facility] Discharge Instructions Should you have any questions prior to discharge, please contact a member of your healthcare team. If you have left the hospital and have any questions, please contact your primary care physician. Reason For Referral No Data Found Problems Problem Start Date Resolved Date Status Code Code System DEPRESSION active 86205708 SNOMED-CT LIGHTHEADED active 712824753 SNOMED-C T TACHYCARDIA active 7099871 SNOMED-C T OBESITY active 792569030 SNOMED-CT Allergies and Adverse Reactions Allergy Substance Reaction Severity Start Date Concern Status Co de Code System PENICILLINS (CLASS) RASH (SNOMED-CT: null) Active 95051 RxNorm AMOXICILLIN Hives (SNOMED-CT: 691123416) Active Plan of Treatment US PELVIC / TV 10/14/2023 US PELVIC / TV 05/30/2022 US PELVIC / TV 05/16/2022 LAB DRAW 15MIN 04/18/2022 Encounters Encounter Diagnosis Start Date Code Code Sys tem Pelvic and perineal pain 10/21/2023 885812334 [facility] MED-CT Personal Care Team Section Performer Name Performer Role Active Date Inactive Da te
--- OUTSIDE RECORDS SUMMARY | 2024-12-08 08:57 | XMS_ITS ---
Author Organization Unknown Address [address] [place] [phone] Phone Care Team Providers Care Animal Science Instructor Name Role Phone NANCY ELIE Adele Attending Unavailable KATIE Guaman Primary Unavailable Social History Type Status Start Date End Date Code Code Syst em Smoking History Never smoker (Never Smoked) 524981345 SNOMED CT Sex Female Assessment You had the following problems:DEPRESSIONLIGHTHEADEDTACHYCARDIA Hospital Discharge Instructions Should you have any questions prior to discharge, please contact a member of your healthcare team. If you have left the hospital and have any questions, please contact your primary care physician. Reason For Referral No Data Found Problems Problem Start Date Resolved Date Status Code Code System DEPRESSION active 15593371 SNOMED-CT LIGHTHEADED active 687638301 SNOMED-C T TACHYCARDIA active 4640651 SNOMED-C T OBESITY active 025250991 SNOMED-CT Allergies and Adverse Reactions Allergy Substance Reaction Severity Start Date Concern Status Co de Code System PENICILLINS (CLASS) RASH (SNOMED-CT: null) Active 74527 RxNorm AMOXICILLIN Hives (SNOMED-CT: 066827630) Active Plan of Treatment US PELVIC / TV 10/14/2023 US PELVIC / TV 05/30/2022 US PELVIC / TV 05/16/2022 LAB DRAW 15MIN 04/18/2022 Encounters Encounter Diagnosis Start Date Code Code Sys tem Snoring 07/15/2024 26272065 SNOMED-CT Personal Care Team Section Performer Name Performer Role Active Date Inactive Da te
--- OUTSIDE RECORDS SUMMARY | 2024-12-08 08:57 | XMS_ITS ---
Author Organization Unknown Address [address] [place] [phone] Phone Care Team Providers Care Waste Cotton Cleaner Name Role Phone ROHAN MEDEROS Registered Nurse Unavailable RAMY Angulo Attending Unavailable KATIE Guaman Primary Unavailable UNLISTED PROVIDER - REQUESTED Xhandoff Un available Results [facility] COVID FLU RSV GENEXPE RT - Collect Date/Time: 02/17/2024 00:33 [facility] ID: [id number] [address] [place], [place], [id number] LOINC: 98060-2 Test Value Unit Reference Range Code Code System Flag COVID NEGATIVE Normal: Negative 58397-3 LOINC INFLUENZA A DNA NEGATIVE Normal: Negative 29605-9 LOINC INFLUENZA B DNA NEGATIVE Normal: Negative 42561-8 LOINC RSV DNA NEGATIVE Normal: Negative 96928-2 LOINC URINALYSIS WITH REFLEX CULT IF POSITIVE* - Collect Date/Time: 02/17/2024 00:03 [facility] ID: [id number] [address] [place] [address], [address] LOINC: 04028-5 Test Value Unit Reference Range Code Code System Flag COLLECTION MODE: CLEAN CATCH 91272-0 LOINC Color YELLOW yellow 5778-6 LOINC Appearance CLEAR clear 5767-9 LOINC Glucose urine NEGATIVE negative mg/dl 38007-7 LOINC Bilirubin NEGATIVE negative 5770-3 LOINC Ketones TRACE negative mg/dl 2514-8 LOINC A Spec gravity >=1.030 1.003 - 1.030 5811-5 LOINC pH urine 5.5 5.0 - 7.0 2756-5 LOINC Protein NEGATIVE negative mg/dl 61454-3 [facility] Urobilinogen 0.2 <or= 1 EU/dl 90808-8 [facility] Nitrite. NEGATIVE negative 5802-4 [facility] Blood NEGATIVE negative 5794-3 [facility] Leukocytes. NEGATIVE negative MICROSCOPIC NOT INDICAT TEST QUAL (URINE) - Collect Date/Time: 02/17/2024 00:03 [facility] ID: [id number] [address] [place], [place], [address] LOINC: 2105-3 Test Value Unit Reference Range Code Code System Flag TEST NEGATIVE 2105-3 [facility] COMPREHENSIVE METABOLIC PANE L (CMP) - Collect Date/Time: 02/16/2024 23:50 [facility] ID: [id number] [address] [place], [place], [address] LOINC: 29988-9 Test Value Unit Reference Range Code Code System Flag GLUCOSE 170 mg/dL L=70 H=116 2345-7 LOINC H BUN 12 mg/dL L=6 H=25 3094-0 LOINC CREATININE 1.00 mg/dL L=0.51 H=0.95 2160-0 LOINC H SODIUM SERUM 138 mmol/L L=136 H=145 2951-2 LOINC POTASSIUM SERUM 4.4 mmol/L L=3.4 H=5.2 2823-3 LOINC CHLORIDE SERUM 101 mmol/L L=96 H=110 2075-0 LOINC CARBON DIOXIDE (CO2) 22 mmol/L L=22 H=34 2028-9 LOINC ANION GAP 15.2 mmol/L 97308-2 LOINC CALCIUM SERUM 8.8 mg/dL L=8.2 H=10.2 94540-2 LOINC BILIRUBIN TOTAL 0.2 mg/dL L=0.0 H=1.3 1975-2 LOINC ALK. PHOS. 85 U/L L=46 H=116 6768-6 LOINC SGOT (AST) 8 U/L L=15 H=37 1920-8 LOINC L SGPT (ALT) 13 U/L L=12 H=78 1742-6 LOINC TOTAL PROTEIN 7.6 gm/dL L=6.0 H=8.0 2885-2 LOINC ALBUMIN 3.2 gm/dL L=3.4 H=5.0 1751-7 LOINC L AGE 33 years eGFR (non-Afr.Amer.) 64 mL/min 04055-3 LOINC eGFR (Afr-Irish) 78 mL/min 78548-8 LOINC CBC W/ DIFFERENTIAL* - Colle ct Date/Time: 02/16/2024 23:50 [facility] ID: [id number] [address] [place], [place], [address] LOINC: 51433-1 Test Value Unit Reference Range Code Code System Flag WBC 11.91 th/cmm L=5.00 H=10.00 6690-2 LOINC H NEUT % 57.5 % L=40.0 H=80.0 LYMPH % 35.0 % L=10.0 H=50.0 MONO % 6.2 % L=2.0 H=12.0 46042-1 LOINC EOS % 0.6 % L=0.0 H=8.0 BASO % 0.4 % L=0.0 H=3.0 IG % 0.3 % L=0.0 H=1.1 2514-8 LOINC NRBC % 0.0 % L=0.0 H=0.0 18790-1 LOINC NEUT abs count 6.8 th/cmm L=1.6 H=8.4 751-8 LOINC LYMPH abs count 4.2 th/cmm L=1.5 H=4.0 731-0 LOINC H MONO abs count 0.7 th/cmm L=0.2 H=1.0 742-7 LOINC EOS abs count 0.1 th/cmm L=0.0 H=0.5 711-2 LOINC BASO abs count 0.1 th/cmm L=0.0 H=0.2 704-7 LOINC IG abs count 0.0 th/cmm L=0.0 H=0.1 63053-7 LOINC NRBC abs count 0.0 mil/cmm L=0.0 H=0.0 13775-6 LOINC RBC 4.33 mil/cmm L=3.90 H=5.40 789-8 LOINC HEMOGLOBIN 11.1 gm/dL L=12.0 H=16.0 718-7 LOINC L HEMATOCRIT 35 % L=37 H=47 4544-3 LOINC L MCV 82 fL L=82 H=92 787-2 LOINC MCH 25.6 pg L=27.0 H=31.0 785-6 LOINC L MCHC 31.4 % L=32.0 H=36.0 786-4 LOINC L RDW-SD 45.1 fL L=39.0 H=49.0 788-0 LOINC PLATELET COUNT 355 th/cmm L=150 H=450 777-3 LOINC NOVA GLUCOSE FINGER HEEL CAP ILLARY - Collect Date/Time: 02/16/2024 23:39 [facility] ID: [id number] [address] [place], [place], [id number] LOINC: 66579-0 Test Value Unit Reference Range Code Code System Flag GLUCOSE CAP 160 mg/dL L=70 H=116 00215-[address] ANGIOGRAPHY CHEST - Compl eted: 02/17/2024 02:00 LOINC: [facility] [place], [place] [address] PACS PHOTOGRAPHIC EQUIPMENT TECHNICIAN REPORT Patient Name: SATURNINO CALZADA MRN: Sex: : Age: [id number] F 1990 33 Account: Accession: Admit: StayType: [id number] 02/16/2024 E/R Ordered: Order ID: Submitted: Ordering Provider: 02/17/2024 01:30 [id number] C[place]AND TRUONG Completed: Technologist: Resulted: 02/17/2024 02:00 MF 02/17/2024 08:49 Study Description: CT ANGIOGRAPHY CHEST Study Reason: eval for PE TECHNIQUE: Imaging Protocol: CT angiography of the chest was performed using pulmonary embolus protocol. Multi planar reconstructions were performed. CONTRAST MATERIAL Intravenous: Omnipaque 350 Contrast volume: 100 cc COMPARISON: Prior chest CT scan of 04/17/2021. FINDINGS: CHEST: PULMONARY ARTERIES: There are no intraluminal filling defects to suggest acute pulmonary emboli. LUNGS: There are no infiltrates nor evidence of pulmonary infarction.. The right upper lobe infiltrate which was not present on the prior CT scan of April 2021 has resolved. There are small nodules in the left lower lobe which are unchanged from the 2020 CT scan and there is also small unchanged fissure related nodule in the right lung. MEDIASTINUM: There is no hilar nor mediastinal adenopathy. Visualized thyroid unremarkable. CARDIAC: Heart size is normal. There is no pericardial effusion.Caliber of the thoracic aorta is within normal limits. There is semilunar lucency in the ascending thoracic aorta which is most probably artifact and is unchanged from prior CT scan of April 2021. Probably artifact; doubtful for dissection. There is no evidence of shift of the interventricular septum. PARTIALLY VISUALIZED UPPERMOST ABDOMEN: No obvious significant findings OSSEOUS: No significant osseous lesions and no fractures evident. IMPRESSION: 1. No evidence of acute pulmonary emboli. No evidence of pulmonary infarction.No pleural effusions. 2. Stable small subcentimeter lung nodules which are unchanged from prior CT scan of 04/17/2021. Report Digitally Signed by Rogelio Gabriel on 02/17/2024 08:49 AM EDT Social History Type Status Start Date End Date Code Code Syst em Smoking History Never smoker (Never Smoked) 299999279 SNOMED CT Sex Female Vital Signs Vital Sign Value Unit [place] Value [place] Unit Date/Time Recent/Initial? Code Code System Body Mass Index 56.47 kg/m2 02/16/2024 23:39 Initial 25990 -5 LOINC Systolic Blood Pressure 130 mm[Hg] 02/17/2024 03:24 Most Recent 8480- 6 LOINC Diastolic Blood Pressure 77 mm[Hg] 02/17/2024 03:24 Most Recent 8462- 4 LOINC Systolic Blood Pressure 147 mm[Hg] 02/16/2024 23:39 Initial 8480- 6 LOINC Diastolic Blood Pressure 77 mm[Hg] 02/16/2024 23:39 Initial 8462- 4 LOINC Body Surface Area 2.60 m2 02/16/2024 23:39 Initial 3140- 1 LOINC Height 162.560 0 cm 64.00 in 02/16/2024 23:39 Initial 8302- 2 LOINC O2 Saturation 98 % 2023 03:24 Most Recent 91941 -5 LOINC O2 Saturation 98 % 2023 23:39 Initial 93430 -5 LOINC Pulse 106.0 /min 02/17/2024 03:24 Most Recent 8867- 4 LOINC Pulse 119.0 /min 02/16/2024 23:39 Initial 8867- 4 LOINC Respiration 15 /min 02/17/20 24 03:24 Most Recent 9279- 1 LOINC Respiration 17 /min 02/16/20 23:39 Initial 9279- 1 LOINC Temperature 36.5 Alyssa 97.7 F 02/17/20 24 00:38 Most Recent 8310- 5 LOINC Temperature 36.2 Alyssa 97.2 F 02/16/20 23:39 Initial 8310- 5 LOINC Weight 149.23 kg 329.00 lbs 02/16/2024 23:39 Initial 22736 -7 LOINC Medications Medication Start Date End Date Route Frequency Dose Code Code System Medication Instructions Home Meds Zofran 4MG Oral Tablet 11/17/2022 02/16/2024 ORAL EVERY 6 HOURS 1 TABLET 121008 RxNorm TAKE 1 TABLET ORAL EVERY 6 [...] Date Status Code Code System DEPRESSION active 09150530 SNOMED-CT LIGHTHEADED active 472369442 SNOMED-C T TACHYCARDIA active 4867224 SNOMED-C T OBESITY active 824191523 SNOMED-CT Allergies and Adverse Reactions Allergy Substance Reaction Severity Start Date Concern Status Co de Code System PENICILLINS (CLASS) RASH (SNOMED-CT: null) Active 58795 RxNorm AMOXICILLIN Hives (SNOMED-CT: 751546742) Active Plan of Treatment US PELVIC / TV 10/14/2023 US PELVIC / TV 05/30/2022 US PELVIC / TV 05/16/2022 LAB DRAW 15MIN 04/18/2022 OUTPATIENT PLAN: Additional Physician Instructions: Increase fluids. HOSPITAL COURSE AND TESTING: Medications given this visit: Ordered & Completed Meds Table Ordered Medication Start Date/Time Dosage Route Frequency Status SODIUM CHLORIDE 0.9% 1000ML 02/16/2024 23:41 INTRAVENOUS X1 completed LORazepam INJ SYRINGE: 2MG/ML 02/17/2024 00:05 0.5 MG IV PUSH X1 completed SODIUM CHLORIDE 0.9% 1000ML 02/17/2024 00:13 INTRAVENOUS X1 completed ACETAMINOPHEN TABLET: 325MG 02/17/2024 00:33 975 MG ORAL X1 completed IBUPROFEN TABLET: 600MG 02/17/2024 00:33 600 MG ORAL X1 completed Lab Results: This Visit Test Results Units Reference Range Ordered Collected Status COVID NEGATIVE NEGATIVE Normal: Negative 02/17/2024 00:31 02/17/2024 00:33 final INFLUENZA A DNA NEGATIVE NEGATIVE Normal: Negative 02/17/2024 00:31 02/17/2024 00:33 final INFLUENZA B DNA NEGATIVE NEGATIVE Normal: Negative 02/17/2024 00:31 02/17/2024 00:33 final RSV DNA NEGATIVE NEGATIVE Normal: Negative 02/17/2024 00:31 02/17/2024 00:33 final TEST NEGATIVE NEGATIVE 02/16/2024 23:41 02/17/2024 00:03 final COLLECTION MODE: CLEAN CATCH CLEAN CATCH 02/16/2024 23:41 02/17/2024 00:03 final Color YELLOW YELLOW yellow 02/16/2024 23:41 02/17/2024 00:03 final Appearance CLEAR CLEAR clear 02/16/2024 23:41 02/17/2024 00:03 final Glucose urine NEGATIVE NEGATIVE negative mg/dl 02/16/2024 23:41 02/17/2024 00:03 final Bilirubin NEGATIVE NEGATIVE negative 02/16/2024 23:41 02/17/2024 00:03 final Ketones TRACE A TRACE negative mg/dl 02/16/2024 23:41 02/17/2024 00:03 final Spec gravity >=1.030 >=1.030 1.003 - 1.030 02/16/2024 23:41 02/17/2024 00:03 final pH urine 5.5 5.5 5.0 - 7.0 02/16/2024 23:41 02/17/2024 00:03 final Protein NEGATIVE NEGATIVE negative mg/dl 02/16/2024 23:41 02/17/2024 00:03 final Urobilinogen 0.2 0.2 02/16/2024 23:41 02/17/2024 00:03 final Nitrite. NEGATIVE NEGATIVE negative 02/16/2024 23:41 02/17/2024 00:03 final Blood NEGATIVE NEGATIVE negative 02/16/2024 23:41 02/17/2024 00:03 final Leukocytes. NEGATIVE NEGATIVE negative 02/16/2024 23:41 02/17/2024 00:03 final MICROSCOPIC NOT INDICAT NOT INDICAT 02/16/2024 23:41 02/17/2024 00:03 final WBC 11.91 H th/cmm L=5.00 H=10.00 02/16/2024 23:41 02/16/2024 23:50 final NEUT % 57.5 % L=40.0 H=80.0 02/16/2024 23:41 02/16/2024 23:50 final LYMPH % 35.0 % L=10.0 H=50.0 02/16/2024 23:41 02/16/2024 23:50 final MONO % 6.2 % L=2.0 H=12.0 02/16/2024 23:41 02/16/2024 23:50 final EOS % 0.6 % L=0.0 H=8.0 02/16/2024 23:41 02/16/2024 23:50 final BASO % 0.4 % L=0.0 H=3.0 02/16/2024 23:41 02/16/2024 23:50 final IG % 0.3 % L=0.0 H=1.1 02/16/2024 23:41 02/16/2024 23:50 final NRBC % 0.0 % L=0.0 H=0.0 02/16/2024 23:41 02/16/2024 23:50 final NEUT abs count 6.8 th/cmm L=1.6 H=8.4 02/16/2024 23:41 02/16/2024 23:50 final LYMPH abs count 4.2 H th/cmm L=1.5 H=4.0 02/16/2024 23:41 02/16/2024 23:50 final MONO abs count 0.7 th/cmm L=0.2 H=1.0 02/16/2024 23:41 02/16/2024 23:50 final EOS abs count 0.1 th/cmm L=0.0 H=0.5 02/16/2024 23:41 02/16/2024 23:50 final BASO abs count 0.1 th/cmm L=0.0 H=0.2 02/16/2024 23:41 02/16/2024 23:50 final IG abs count 0.0 th/cmm L=0.0 H=0.1 02/16/2024 23:41 02/16/2024 23:50 final NRBC abs count 0.0 mil/cmm L=0.0 H=0.0 02/16/2024 23:41 02/16/2024 23:50 final RBC 4.33 mil/cmm L=3.90 H=5.40 02/16/2024 23:41 02/16/2024 23:50 final HEMOGLOBIN 11.1 L gm/dL L=12.0 H=16.0 02/16/2024 23:41 02/16/2024 23:50 final HEMATOCRIT 35 L % L=37 H=47 02/16/2024 23:41 02/16/2024 23:50 final MCV 82 fL L=82 H=92 02/16/2024 23:41 02/16/2024 23:50 final MCH 25.6 L pg L=27.0 H=31.0 02/16/2024 23:41 02/16/2024 23:50 final MCHC 31.4 L % L=32.0 H=36.0 02/16/2024 23:41 02/16/2024 23:50 final RDW-SD 45.1 fL L=39.0 H=49.0 02/16/2024 23:41 02/16/2024 23:50 final PLATELET COUNT 355 th/cmm L=150 H=450 02/16/2024 23:41 02/16/2024 23:50 final GLUCOSE 170 H mg/dL L=70 H=116 02/16/2024 23:41 02/16/2024 23:50 final BUN 12 mg/dL L=6 H=25 02/16/2024 23:41 02/16/2024 23:50 final CREATININE 1.00 H mg/dL L=0.51 H=0.95 02/16/2024 23:41 02/16/2024 23:50 final SODIUM SERUM 138 mmol/L L=136 H=145 02/16/2024 23:41 02/16/2024 23:50 final POTASSIUM SERUM 4.4 mmol/L L=3.4 H=5.2 02/16/2024 23:41 02/16/2024 23:50 final CHLORIDE SERUM 101 mmol/L L=96 H=110 02/16/2024 23:41 02/16/2024 23:50 final CARBON DIOXIDE (CO2) 22 mmol/L L=22 H=34 02/16/2024 23:41 02/16/2024 23:50 final ANION GAP 15.2 mmol/L 02/16/2024 23:41 02/16/2024 23:50 final CALCIUM SERUM 8.8 mg/dL L=8.2 H=10.2 02/16/2024 23:41 02/16/2024 23:50 final BILIRUBIN TOTAL 0.2 mg/dL L=0.0 H=1.3 02/16/2024 23:41 02/16/2024 23:50 final ALK. PHOS. 85 U/L L=46 H=116 02/16/2024 23:41 02/16/2024 23:50 final SGOT (AST) 8 L U/L L=15 H=37 02/16/2024 23:41 02/16/2024 23:50 final SGPT (ALT) 13 U/L L=12 H=78 02/16/2024 23:41 02/16/2024 23:50 final TOTAL PROTEIN 7.6 gm/dL L=6.0 H=8.0 02/16/2024 23:41 02/16/2024 23:50 final ALBUMIN 3.2 L gm/dL L=3.4 H=5.0 02/16/2024 23:41 02/16/2024 23:50 final AGE 33 years 02/16/2024 23:41 02/16/2024 23:50 final eGFR (non-Afr.Amer.) 64 mL/min 02/16/2024 23:41 02/16/2024 23:50 final eGFR (Afr-Irish) 78 mL/min 02/16/2024 23:41 02/16/2024 23:50 final GLUCOSE CAP 160 H mg/dL L=70 H=116 02/16/2024 23:39 02/16/2024 23:39 final EKG ORDER TRACING 12 LEAD 02/16/2024 23:40 registered Radiology Results: CT ANGIOGRAM CHEST, W/ CONTRAST - interpreted by ad radiology. IMPRESSION: 1. No pulmonary embolism identified. 2. No acute abnormality identified. Encounters Encounter Diagnosis Start Date Code Code Sys tem Nausea with vomiting, unspecified 02/16/2024 SNOMED-CT Personal Care Team Section Performer Name Performer Role Active Date Inactive Da te
--- OUTSIDE RECORDS SUMMARY | 2024-12-08 08:58 | XMS_ITS | Encounter Summary ---
Author Organization [facility] Address [address] [place] [address] Care Team Providers Care Husker Operator Name Role Phone Unknown, Provider Primary Care Provider Joel John MD Primary Care Provider Marcia Lane MD Primary Care Provider [phone] Encounter Details Date Type Department Care Team (Late st Contact Info) Description 05/27/2021 Lab Requisition [facility] Pathology & Laboratory Medicine - [address] [address] Outr Resulting Lab, Provider Social History Tobacco Use Types Packs/Day Years Used Date Smoking Tobacco: Never Assessed Comments Unknown Sex and Gender Information Value Date Recorded Sex Assigned at Not on file Legal Sex Female 10:37 EDT Gender Identity Female 09/22/2023 14:51 EST Sexual Orientation Not on file documented as of this encounter Plan of Treatment Not on file documented as of this encounter Procedures Procedure Name Priority Date/Time Associated Diagnosis Comments CHLAMYDIA/N. GONORRHOEAE AMPLIFIED NUCLEIC ACID Routine 05/27/2021 10:50 EDT documented in this encounter Results * CHLAMYDIA/N. GONORRHOEAE AMPLIFIED RNA (05/27/2021 10:50 EDT) Neisseria gonorrhoeae Result Negative Negative 05/28/2021 13:59 EDT [facility] Chlamydia trachomatis Result Negative Negative 05/28/2021 13:59 EDT [facility] Urine URINE / Unknown 05/27/2021 1 0:50 EDT 05/27/2021 22:35 EDT Narrative [facility] - 05/28/2021 13:59 EDT A first catch urine specimen is acceptable for detection of Gonorrhea and Chlamydia, but might detect up to 10% fewer infections when compared with vaginal and endocervical swab samples. us Provider Outr Resulting Lab MICROBIOLOGY - GENER AL ORDERABLES Final Result [facility] [address] [place] [address] documented in this encounter Visit Diagnoses Not on filedocumented in this encounter Care Teams Husker Operator Relationship Specialty Start Date End Date Unknown, MD Lopez PCP - General 08/02/15 04/09/22 Joel Romo MD PCP - General 04/10/22 09/21/23 Marcia Hutchinson MD [address] [place] [id number] PCP - General 09/22/23 documented as of this encounter
--- OUTSIDE RECORDS SUMMARY | 2024-12-08 08:58 | XMS_ITS | Encounter Summary ---
Author Organization [facility] Address [address] [place] [address] Care Team Providers Care Municipal Bond Trader Name Role Phone Joel Romo MD Primary Care Provider Marcia Lane MD Primary Care Provider [phone] Encounter Details Date Type Department Care Team (Late st Contact Info) Description 04/18/2022 Lab Requisition [facility] Pathology & Laboratory Medicine - [address] [address] Outr Resulting Lab, Provider Social History Tobacco [...] Procedure Name Priority Date/Time Associated Diagnosis Comments VITAMIN D (25,OH) Routine 04/18/2022 15: 05 EDT documented in this encounter Results * (ABNORMAL) VITAMIN D (25,OH) (04/18/2022 15:05 EDT) 25OH Vitamin D Tot 23(L) 30 - 100 ng/mL 04/19/2022 11:04 EDT [facility] Comment: Vitamin D 25,OH Interpretive Ranges: Deficiency: ??<10.0 ng/mL Insufficiency: ??10.0 - 30.0 ng/mL Sufficiency: ??30.0 - 100.0 ng/mL Toxicity: ??>100.0 ng/mL Blood VENOUS BLOOD / Unknown 04/18/2022 15:05 EDT 04/18/2022 21:14 EDT us Provider Outr Resulting Lab CHEMISTRY & BLOOD GA S ORDERABLES Final Result [facility] [address] [place] [address] documented in this encounter Visit Diagnoses Not on filedocumented in this encounter Care Teams Municipal Bond Trader Relationship Specialty Start Date End Date Joel Romo MD PCP - General 04/10/22 09/21/23 Marcia Hutchinson MD [address] [place] [address] PCP - General 09/22/23 documented as of this encounter
--- OUTSIDE RECORDS SUMMARY | 2024-12-08 08:58 | XMS_ITS | Encounter Summary ---
Author Organization [facility] Address [address] [place] [address] Care Team Providers Care Roller Cleaner Name Role Phone Marcia Hutchinson MD Primary Care Provider [phone] Reason for Visit * Reason Comments Cough Shortness of Breath Chest Pain Encounter Details Date Type Department Care Team (Late st Contact Info) Description 03/25/2024 11:15 EDT Walk-In [address] [address] Chaim Roldan NP [address] [facility] [address] [place], [place] [id number] Bronchitis (Primary Dx) Social History Tobacco Use Types Packs/Day Years Used Date Smoking Tobacco: Never Assessed Comments Unknown Sex and Gender Information Value Date Recorded Sex Assigned at Not on file Legal Sex Female 10:37 EDT Gender Identity Female 09/22/2023 14:51 EST Sexual Orientation Not on file documented as of this encounter Last Filed Vital Signs Vital Sign Reading Time Taken Comments Blood Pressure 136/66 03/25/2024 1102 EDT Pulse 84 03/25/2024 1102 EDT Temperature 37.1 ??C (98.7 ??F) 03/25/2024 1102 EDT Respiratory Rate 20 03/25/2024 1102 EDT Oxygen Saturation 96% 03/25/2024 1102 EDT Inhaled Oxygen Concentration - - Weight - - Height - - Body Mass Index - - documented in this encounter Patient Instructions * Patient Instructions* Chaim Roldan NP - 03/25/2024 11:15 EDT Your examination and history are consistent with bronchitis, or inflammation of the lungs, typically caused by a cold. Use the prednisone each morning to reverse lung inflammation and hopefully help your symptoms. Use albuterol inhaler if you are feeling winded or having coughing fits. For rapid worsening of symptoms such as fever 101+, increasing trouble breathing, sweating return for reassessment. * Attachments The following attachments cannot be sent through Care Everywhere. * Bronchitis (Malay) documented in this encounter Ordered Prescriptions Prescription Sig Dispense Quantity Refills Last Filled Start Date End Date albuterol 90 mcg/actuation inhaler Inhale 2 Puffs as directed every 4 hours as needed for Wheezing. 1 Each 03/25/2024 predniSONE (DELTASONE) 20 mg tablet Take 2 Tablets by mouth daily for 5 days. 10 Tablet 03/25/2024 4 documented in this encounter Progress Notes * Lilly Wheeler MA - 03/25/2024 111 EDT CC/HPI: Pt c/o productive cough, SOB, chest pain, Sx started one week ago Covid Screening: In the last 72 hours, has the patient had: New or unusual cough, shortness of breath, new nasal congestion, sore throat, fever, chills, body aches, or new loss of taste or smell without a reasonable alternative diagnosis*? (If yes, assign to ARC) YES In the past 10 days, has the patient had a positive Covid test OR a confirmed close Covid exposure (<6ft for > 15mins in 24hr period)? (if yes, assign to ARC, regardless of vaccination status) NO *may be determined by RN or in discussion with available provider (MEASUREMENT ANALYST's and CCA's can defer to Charge Nurse to complete triage when appropriate) PCP: Marcia Hutchinson * Chaim Roldan NP - 03/25/2024 1115 EDT [facility] Chief Complaint(s): Chief Complaint Patient presents with Cough Shortness of Breath Chest Pain HPI: Grisel Adams is a 33 y.o. yr old female who presents for evaluation of cough of 1 week. Symptoms began with sore throat, some nasal congestion and chest ache when she coughs. She has low appetite and energy level. Robertson winded slightly at this morning for short while. Denies fever or sweats. ROS: Social History Tobacco Use Smoking Status Not on file Smokeless Tobacco Not on file Review of Systems Constitutional: Positive for malaise/fatigue. HENT: Positive for sore throat. Respiratory: Positive for cough. Cardiovascular: Negative. Musculoskeletal: Negative. Skin: Negative. Neurological: Negative. All other systems reviewed and are negative. See HPI for details Objective: Vitals and nursing notes reviewed Examination: BP 136/66 Pulse 84 Temp 37.1 ??C (98.7 ??F) (Oral) Resp 20 SpO2 96% Physical Exam Vitals and nursing note reviewed. Constitutional: General: She is not in acute distress. Appearance: Normal appearance. She is not ill-appearing. HENT: Head: Normocephalic and atraumatic. Right Ear: Tympanic membrane, ear canal and external ear normal. Left Ear: Tympanic membrane, ear canal and external ear normal. Nose: Nose normal. Mouth/Throat: Mouth: Mucous membranes are moist. Pharynx: Oropharynx is clear. No oropharyngeal exudate or posterior oropharyngeal erythema. Eyes: General: No scleral icterus. Conjunctiva/sclera: Conjunctivae normal. Cardiovascular: Rate and Rhythm: Normal rate and regular rhythm. Pulmonary: Effort: Pulmonary effort is normal. Breath sounds: Wheezing present. Comments: Expiratory wheeze in right upper lobe otherwise clear, unlabored breathing Musculoskeletal: Cervical back: Normal range of motion and neck supple. No rigidity. Lymphadenopathy: Cervical: No cervical adenopathy. Skin: General: Skin is warm and dry. Neurological: General: No focal deficit present. Mental Status: She is alert and oriented to person, place, and time. Mental status is at baseline. Assessment & Plan: MDM: Patient with 1 week of URI symptoms. At this point she is having an all day long cough and trouble sleeping at night. No fevers no sweating. On exam there is expiratory wheezing in the right upper lobe, no hypoxia fever or tachycardia. Low suspicion of pneumonia. The patient is self-pay we will forego an x-ray at this time unless she worsens. Will treat for bronchitis with prednisone course a nd albuterol inhaler. Return precautions given. Patient is generally well appearing, afebrile, non toxic, well hydrated, stable on exam. I have reviewed current problem list, current medications and allergies. An appropriate medical screening examination was performed. The patient was assessed prior to discharge and deemed stable for discharge home. This note may be in part documented using [employer] dictation software. Please forgive any errors, omissions or typos that may result from use of dictation. I printed material and reviewed home management and follow up in detail with patient, see patient instructions below. Patient is advised in use of [employer] to access any lab results or other pertinentvisit information. All questions are answered. Patient is advised to follow up for urgent reassessment for any new/worsening signs and symptoms, otherwise, follow up with PCP or at [facility] for symptoms that persist past current course of treatment or expected resolution as discussed. Patient verbalizes understanding and agreement with this plan of care. documented in this encounter Plan of Treatment Not on file documented as of this encounter Visit Diagnoses Diagnosis Bronchitis- Primary Bronchitis, not specified as acute or chronic documented in this encounter Discontinued Medications Medication Sig Discontinue Reason Start Date End Da te albuterol 90 mcg/actuation inhalerIndications:Acut e cough Inhale 1 Puff as directed every 4 hours as needed for Wheezing. Therapy completed 10/11/2023 03/25/2024 documented as of this encounter Historical Medications * This list may reflect changes made after this encounter. liraglutide (VICTOZA 2-XANDER) 0.6 mg/0.1 mL (18 mg/3 mL) injectable pen Inject 0.6 mg into the skin daily. added in this encounter Care Teams Roller Cleaner Relationship Specialty Start Date End Date Marcia Hutchinson MD [address] [facility] [phone] PCP - General 09/22/23 documented as of this encounter
--- OUTSIDE RECORDS SUMMARY | 2024-12-08 08:58 | XMS_ITS | Encounter Summary ---
Author Organization [facility] Address [address] [place] [address] Care Team Providers Care Interactive Media Marketing Strategist Name Role Phone Marcia Hutchinson MD Primary Care Provider [phone] Reason for Visit * Reason Comments Nasal Congestion Cough Sore Throat Encounter Details Date Type Department Care Team ([facility] st Contact Info) Description 10/11/2023 14:45 EST Walk-In [facility] [address] [place] [id number] Malgorzata Zamarripa PA-C [address] [facility] [address] [place] [address] Acute cough (Primary Dx) Social History Tobacco Use Types Packs/Day Years Used Date Smoking Tobacco: Never Assessed Comments Unknown Sex and Gender Information Value Date Recorded Sex Assigned at Not on file Legal Sex Female 10:37 EDT Gender Identity Female 09/22/2023 14:51 EST Sexual Orientation Not on file documented as of this encounter Last Filed Vital Signs Vital Sign Reading Time Taken Comments Blood Pressure 140/92 10/11/2023 1445 EST Pulse 91 10/11/2023 1445 EST Temperature 37.1 ??C (98.8 ??F) 10/11/2023 1445 EST Respiratory Rate 20 10/11/2023 1445 EST Oxygen Saturation 96% 10/11/2023 1445 EST Inhaled Oxygen Concentration - - Weight - - Height - - Body Mass Index - - documented in this encounter Patient Instructions * Attachments The following attachments cannot be sent through Care Everywhere. * Cough (Bulgarian) documented in this encounter Ordered Prescriptions Prescription Sig Dispense Quantity Refills Last Filled Start Date End Date inhalational spacing device (AEROCHAMBER)Indic ations:Acute cough For use with inhaler 1 Each 10/11/2023 guaiFENesin-codein e (GUAIFENESIN AC) 100-10 mg/5 mL liquidIndications: Acute cough Take 10 mL by mouth 4 times daily as needed for Cough. Daily Max: 40 mL 120 mL 10/11/2023 benzonatate (TESSALON) 200 mg capsuleIndications :Acute cough Take 1 cap po TID 30 Capsule 10/11/2023 albuterol 90 mcg/actuation inhalerIndications :Acute cough Inhale 1 Puff as directed every 4 hours as needed for Wheezing. 1 Each 10/11/2023 4 documented in this encounter Progress Notes * Martha Cm RN - 10/11/2023 4340 EST CC/HPI: Patient presents with cough, nasal congestion, sore throat, and headache x 3-4 days. Covid test 2 days ago was negative. Covid Screening: In the last 72 hours, has the patient had: New or unusual cough, shortness of breath, new nasal congestion, sore throat, fever, chills, body aches, or new loss of taste or smell without a reasonable alternative diagnosis*? (If yes, assign to ARC)- In the past 10 days, has the patient had a positive Covid test OR a confirmed close Covid exposure (<6ft for > 15mins in 24hr period)? 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 HENT: Positive for congestion and sore throat. Respiratory: Positive for cough. Objective: Examination: Vitals: BP (!) 140/92 (BP Cuff Location: Right arm, BP Patient Position: Sitting, BP Cuff Sizes: Adult, large) Pulse 91 Temp 37.1 ??C (98.8 ??F) (Oral) Resp 20 SpO2 96% Physical Exam Vitals reviewed. Constitutional: Appearance: Normal appearance. HENT: Right Ear: Tympanic membrane normal. Left Ear: Tympanic membrane normal. Mouth/Throat: Mouth: Mucous membranes are moist. Pharynx: No oropharyngeal exudate or posterior oropharyngeal erythema. Comments: Uvula midline, tonsils absent Cardiovascular: Rate and Rhythm: Normal rate and regular rhythm. Pulmonary: Effort: Pulmonary effort is normal. No respiratory distress. Breath sounds: Normal breath sounds. No wheezing. Comments: Good air to bases, O2 sat noted, there is some faint rhonchi at the bases on exam, no wheezing Neurological: Mental Status: She is alert. Procedures Assessment & Plan: 1. Acute cough RAD: No acute process as read by me, will inform patient of radiology interpretation requires a different PLAN OF CARE - benzonatate (TESSALON) 200 mg capsule; Take 1 cap po TID Dispense: 30 Capsule; Refill: 0 - guaiFENesin-codeine (GUAIFENESIN AC) 100-10 mg/5 mL liquid; Take 10 mL by mouth 4 times daily as needed for Cough. Daily Max: 40 mL Dispense: 120 mL; Refill: 0 - albuterol 90 mcg/actuation inhaler; Inhale 1 Puff as directed every 4 hours as needed for Wheezing. Dispense: 1 Each; Refill: 0 - inhalational spacing device (AEROCHAMBER); For use with inhaler Dispense: 1 Each; Refill: 0 Will treat the cough, antibiotics not indicated at this time, can take [id number]-itg-[id number] cold medications, discussed with patient the symptoms can last 10 to 14 days or longer, further information andhome care recommendations was given in the AVS An appropriate medical screening examination was performed. The patient was assessed prior to discharge and deemed stable for discharge. documented in this encounter Plan of Treatment Not on file documented as of this encounter Procedures Procedure Name Priority Date/Time Associated Diagnosis Comments XR CHEST 2 VIEWS STAT 10/11/2023 15:0 1 EST Acute cough documented in this encounter Results * XR CHEST 2 VIEWS (10/11/2023 15:01 EST) Anatomical Region Laterality Modality Computed Radiogr aphy 10/11/2023 14:5 4 EST Impressions 10/11/2023 15:35 EST Lungs are well aerated without a focal area of consolidation. THIS DOCUMENT HAS BEEN ELECTRONICALLY SIGNED BY DREAD MUNOZ MD FOR ANY QUESTIONS OR CONCERNS REGARDING THIS REPORT PLEASE CALL [facility] AT [phone] Narrative 10/11/2023 15:35 EST PROCEDURE INFORMATION: Exam: XR Chest Exam date and time: 10/11/2023 2:54 PM Age: 32 years old Clinical indication: Acute cough; Pain; Other: Cough, faint rhonchi scattered TECHNIQUE: Imaging protocol: Radiologic exam of the chest. Views: 2 views. COMPARISON: No relevant prior studies available. FINDINGS: Lungs: Lungs are well aerated without a focal area of consolidation. Pleural spaces: Unremarkable. No pleural effusion. No pneumothorax. Heart/Mediastinum: Unremarkable. No cardiomegaly. Bones/joints: Unremarkable. Procedure Note Dread Munoz MD - 10/11/2023 PROCEDURE INFORMATION: Exam: XR Chest Exam date and time: 10/11/2023 2:54 PM Age: 32 years old Clinical indication: Acute cough; Pain; Other: Cough, faint rhonchi scattered TECHNIQUE: Imaging protocol: Radiologic exam of the chest. Views: 2 views. COMPARISON: No relevant prior studies available. FINDINGS: Lungs: Lungs are well aerated without a focal area of consolidation. Pleural spaces: Unremarkable. No pleural effusion. No pneumothorax. Heart/Mediastinum: Unremarkable. No cardiomegaly. Bones/joints: Unremarkable. IMPRESSION Lungs are well aerated without a focal area of consolidation. THIS DOCUMENT HAS BEEN ELECTRONICALLY SIGNED BY DREAD MUNOZ MD FOR ANY QUESTIONS OR CONCERNS REGARDING THIS REPORT PLEASE CALL [facility] [phone] us Malgorzata Zamarripa PA-C [facility] DIAGNOST[facility] ORDERA BLES Final Result documented in this encounter Visit Diagnoses Diagnosis Acute cough- Primary documented in this encounter Historical Medications * This list may reflect changes made after this encounter. norgestimate-ethi nyl estradioL (ORTHO-CYCLEN) 0.25-35 mg-mcg per tablet Take 1 Tablet by mouth daily. 09/24/2023 lamoTRIgine (LAMICTAL) 25 mg tablet Take 1 Tablet by mouth daily. 09/10/2023 citalopram (CELEXA) 10 mg tablet Take 1 Tablet by mouth daily. 09/10/2023 added in this encounter Care Teams Interactive Media Marketing Strategist Relationship Specialty Start Date End Date Marcia Hutchinson MD [address] [place] [phone] PCP - General 09/22/23 documented as of this encounter
--- OUTSIDE RECORDS SUMMARY | 2024-12-08 08:58 | XMS_ITS | Clinical Summary ---
Author Organization [facility] [place] [address] Care Team Providers Care Restaurant Kitchen Manager Name Role Phone Marcia Hutchinson MD Primary Care Provider [phone] Allergies Active Allergy Reactions Criticality Noted Date Comments Amoxicillin Rash 04/29/2019 Medications Medication Sig Dispensed Refills Start Date End Date Status citalopram (CELEXA) 40 mg Tablet Take 60 mg by mouth daily. Active Encounters Date Type Department Care Team Description 09/10/2024 Interpretation Only [facility] in [address] [phone] Debbie Webb APRN from Last 3 Months Social History Tobacco Use Types Packs/Day Years Used Date Smoking Tobacco: Never Smokeless Tobacco: Never Alcohol Use Standard Drinks/Week Comments Not Currently 0 (1 standard drink = 0.6 oz pur e alcohol) rarely Sex and Gender Information Value Date Recorded Sex Assigned at Not on file Gender Identity Not on file Sexual Orientation Not on file Last Filed Vital Signs Vital Sign Reading Time Taken Comments Blood Pressure 127/85 04/29/2019 9:50 AM EDT Pulse 88 04/29/2019 9:30 AM EDT Temperature 36.9 ??C (98.4 ??F) 04/29/2019 8:04 AM ED T Respiratory Rate 18 04/29/2019 9:30 AM EDT Oxygen Saturation 97% 04/29/2019 9:50 AM EDT Inhaled Oxygen Concentration - - Weight 142 kg (313 lb) 04/29/2019 8:10 AM EDT Height 164 cm (5' 4.57) 04/29/2019 8:10 AM EDT Body Mass Index 52.79 04/29/2019 8:10 AM EDT Plan of Treatment Health Maintenance Due Date Last Done Comments HIV screen 2009 Hepatitis C Screening 2009 Hepatitis B vaccine (0-59 yrs) (1) 2010 Tetanus/Diphtheria/Pertussis Vaccines (1 - Tdap) 11/12 HPV test 2021 PAP Smear 2021 Covid-19 Vaccine (1 - season) 2024 Influenza (Flu) vaccine (1 o f 1 - Influenza standard series) 07/11/2024 Care Teams Restaurant Kitchen Manager Relationship Specialty Start Date End Date Marcia Hutchinson MD [address] [place], [place] [address] PCP - General Family Medicine 02/12/19
--- OUTSIDE RECORDS SUMMARY | 2024-12-08 08:58 | XMS_ITS | Encounter Summary ---
Author Organization [facility] Address [address] [place] [address] Care Team Providers Care Internal Audit Director Name Role Phone Marcia Hutchinson MD Primary Care Provider [phone] Encounter Details Date Type Department Care Team (Late st Contact Info) Description 09/23/2023 Orders Only [facility] - [address] [address] Karley Díaz MD [address] [facility] [place] [phone] Abnormal uterine bleeding (Primary Dx) Social History Tobacco Use Types [...] as of this encounter Visit Diagnoses Diagnosis Abnormal uterine bleeding- Primary Unspecified disorder of menstruation and other abnormal bleeding from female genital tract documented in this encounter Care Teams Internal Audit Director Relationship Specialty Start Date End Date Marcia Hutchinson MD [address] [place] [phone] PCP - General 09/22/23 documented as of this encounter
--- OUTSIDE RECORDS SUMMARY | 2024-12-08 08:58 | XMS_ITS ---
Author Organization Unknown Address [address] [place] [phone] Phone Care Team Providers Care Underwater Trapper Name Role Phone REED Romeo Attending Unavailable KATIE Guaman Primary Unavailable Social History Type Status Start Date End Date Code Code Syst em Smoking History Never smoker (Never Smoked) 826311469 SNOMED CT Sex Female Medications Medication Start Date End Date Route Frequency Dose Code Code System Medication Instructions Orders FERRIC CARBOXYMALTOSE INJ SDV 750MG/15ML 08/06/2024 Unknown IV PIGGYBACK QWEEK 9144389 RxNorm O PAULA 15-30MIN IV PIGGYBACK EVERY WEEK ~~~FERRIC CARBOXYMALTOSE INJ SDV 750MG/15ML 750 MG RxNorm ~~~SODIUM CHLORIDE 0.9% 250ML 25 0 ML RxNorm Assessment You had the following problems:DEPRESSIONLIGHTHEADEDTACHYCARDIA Hospital Discharge Instructions Should you have any questions prior to discharge, please contact a member of your healthcare team. If you have left the hospital and have any questions, please contact your primary care physician. Reason For Referral No Data Found Problems Problem Start Date Resolved Date Status Code Code System DEPRESSION active 81576353 SNOMED-CT LIGHTHEADED active 658480682 SNOMED-C T TACHYCARDIA active 0714966 SNOMED-C T OBESITY active 798764192 SNOMED-CT Allergies and Adverse Reactions Allergy Substance Reaction Severity Start Date Concern Status Co de Code System PENICILLINS (CLASS) RASH (SNOMED-CT: null) Active 69473 RxNorm AMOXICILLIN Hives (SNOMED-CT: 161698199) Active Plan of Treatment US PELVIC / TV 10/14/2023 US PELVIC / TV 05/30/2022 US PELVIC / TV 05/16/2022 LAB DRAW 15MIN 04/18/2022 Encounters Encounter Diagnosis Start Date Code Code Sys tem Iron deficiency anemia, unspecified 08/06/2024 SNOMED-CT Personal Care Team Section Performer Name Performer Role Active Date Inactive Da te
--- OUTSIDE RECORDS SUMMARY | 2024-12-08 08:58 | XMS_ITS | Encounter Summary ---
[place] [address] Care Team Providers Care Lead Recoverer Name Role Phone Marcia Hutchinson MD Primary Care Provider Reason for Visit * Auth/Cert Specialty Diagnoses / Procedures Referred By Zackary t Referred To Contact Diagnoses MEY, fm hx of Adenomous polyps, abd pain, rectal bleeding - CONSULT Procedures PRO UPPER GI ENDOSCOPY, DIAGNOSTIC PRO COLONOSCOPY, DIAGNOSTIC EGD, UPPER GI ENDOSCOPY COLONOSCOPY, DIAGNOSTIC Referral ID Status Reason Start Date Expiration Date Visits Re quested Visits Authorized [id number] 1 1 Encounter Details Date Type Department Care Team (Late st Contact Info) Description 04/29/2019 8:43 AM EDT Anesthesia [place] [address] Ashutosh Anderson MD Anesthesia Record Procedure Summary Procedure Name Responsible Anesthesiologist Anesthesia Start Time Anesthesia Stop Time EGD WITH BIOPSY (WRVU 2.39) Ashutosh Anderson MD 04/29/19 0843 04/29/19 0917 Events Date Time Event Comment 04/29/2019 0830 0836 AN Verify 0843 Start 0843 An Start Data 0848 An Induction 0848 Anesthesia Ready 0917 an stop data 0917 Recovery or ICU Handoff Jennifer ent care was transferred to the destination unit staff after review of the patient's medical history, current anesthetic/surgical status and plan, according to the Provider Handoff Checklist. 0917 Stop Meds Name Total IV Lidocaine 50 mg Propofol 150 mg Propofol INF 887.5 mg Dexmedetomidine 20 mcg lactated ringers infusion 700 mL * Agents Name O2 * Blood No blood administrations on file. Lines, Drains, and Airways Type Details Placement Removal (RETIRED) Peripheral IV Line - Single Lumen 04/29/19; 0822; metacarpal vein (top of hand), right; gcvh-dgf-wsgbup catheter system; 20 gauge; distraction, intradermal injection, tolerated well; 0; 04/29/19; 1004 04/29/19 0822 by Bren De La O RN 04/29/19 1004 by Marcia Atkinson RN documented in this encounter Social History Tobacco Use Types Packs/Day Years Used Date Smoking Tobacco: Never Smokeless Tobacco: Never Alcohol Use Standard Drinks/Week Comments Not Currently 0 (1 standard drink = 0.6 oz pur e alcohol) rarely Sex and Gender Information Value Date Recorded Sex Assigned at Not on file Gender Identity Not on file Sexual Orientation Not on file documented as of this encounter OR Notes * Anesthesia Postprocedure Evaluation - Ashutosh Anderson MD - 05/02/2019 12:34 PM EDT Department of Anesthesiology Post-procedure Note Patient: Grisel Adams Procedure Summary Date: 04/29/19 Room / Location: [facility] ENDO 2 / [facility] END[facility]COPY Anesthesia Start: 842 Anesthesia Stop: 916 Procedures: EGD WITH BIOPSY (WRVU 2.49) (N/A ) COLONOSCOPY FLEXIBLE, WITH BX (WRVU 3.66) (N/A ) Diagnosis: (MEY, fm hx of Adenomous polyps, abd pain, rectal bleeding - CONSULT) Surgeon: Kevin Lacy MD Responsible Provider: Ashutosh Anderson MD Anesthesia Type: Not recorded ASA Status: 3 All Anesthesia Providers: Anesthesiologist: Ashutosh Anderson MD SALES ORDER ADMINISTRATOR: Michael Smalls CRNA Vitals Value Taken Time BP 127/85 04/29/2019 9:50 AM Temp Pulse 88 04/29/2019 9:30 AM Resp 18 04/29/2019 9:30 AM SpO2 97 % 04/29/2019 9:50 AM Pain Level 0 04/29/2019 9:30 AM Patient [facility] Level of Consciousness: Awake and Alert Pain Management: Satisfactory Analgesia PONV: None Cardiovascular Status: At Baseline and Hemodynamically Stable Respiratory Status: At Baseline and Room Air Postoperative Fluid Status: Intravascular EUvolemia Possible Anesthetic Complications: NONE apparent at time of evaluation Final Primary Anesthesia Type: General (The anesthetic type performed was the same as planned.) Comments: Ashutosh Anderson MD * Anesthesia Preprocedure Evaluation - Ashutosh Anderson MD - 04/29/2019 8:12 AM EDT Pre-Anesthesia Evaluation for: Grisel Adams a 28 y.o. female. Procedure(s): EGD, UPPER GI ENDOSCOPY COLONOSCOPY, DIAGNOSTIC There are no active problems to display for this patient. No past medical history on file. No past surgical history on file. Social History Tobacco Use ??? Smoking status: Never Smoker ??? Smokeless tobacco: Never Used Substance Use Topics ??? Alcohol use: Not Currently Comment: rarely Social History Substance and Sexual Activity Drug Use Never Allergies Allergen Reactions ??? Amoxicillin Rash Medications: MAR and/or home medications have been reviewed. Physical Exam: Most Recent Vitals: 04/29/19 0804 BP: 141/88 Pulse: 88 Resp: 20 Temp: 36.9 ??C (98.4 ??F) SpO2: 95% There is no height or weight on file to calculate BMI. Airway Assessment: Mallampati: II TM distance: >3 FB Neck ROM: full Cardiovascular Assessment: Rhythm: regular Pulmonary Assessment: breath sounds clear to auscultation Dental Assessment: - normal exam Misc Assessment: Patient is wearing No contact(s). IV access: Peripheral line Anesthesia Plan: ASA 3 with a(n) intravenous induction PRELIMINARY (based off chart review) Attending NOTE Brief HPI: 28 y.o. Morbidly obese female with presumed sleep apnea, h/o rectal bleeding to endo suite for EGD/COlonoscopy There is no problem list on file for this patient. No past medical history on file. METS:>4 Cardiac Symptoms: none EKG: ECHO: LABS: Type and Screen: No results found for: ABORH Past anesthetic problems: none Previous airway notes (on eDH): none NPO status: Reviewed and appropriate Anesthetic Plan: MAC with GA back up, piv Monitoring: Standard ASA monitors I have seen and examined the patient. I have reviewed the medical record and pertinent laboratory information. I have noted the major medical issues to include abcd. I have reviewed risks from minor to major as outlined in the anesthesia consent form. I have highlighted risks related to abcd. The patient acknowledged These risks and would like to proceed with the anesthesia plan. Region - Other Informed Consent: Anesthetic plan and risks discussed with patient. Use of blood products discussed with patient who. Plan discussed with SALES ORDER ADMINISTRATOR. PAT Clinic Note documented in this encounter Plan of Treatment Not on file documented as of this encounter Visit Diagnoses Not on filedocumented in this encounter Administered Medications Inactive Administered Medications - up to 3 most recent administrations Medication Order MAR Action Action Date Dose Rate Site dexmedetomidine (PRECEDEX) injection PRN, Starting on Tiarra 04/29/19 at 0852, Until Tiarra 04/29/19 at 0917, Anesthesia Intra-op, Routine Given 04/29/2019 8:52 AM EDT 20 mcg lidocaine (PF) (XYLOCAINE) 100 mg/5 mL (2 %) injection PRN, Starting on Tiarra 04/29/19 at 0848, Until Tiarra 04/29/19 at 0917, Anesthesia Intra-op, Routine Given 04/29/2019 8:48 AM EDT 50 mg propofol (DIPRIVAN) 10 mg/mL bolus injection (Anesthesia) PRN, Starting on Tiarra 04/29/19 at 0848, Until Tiarra 04/29/19 at 0917, Anesthesia Intra-op Given 04/29/2019 8:53 AM EDT 50 mg Given 04/29/2019 8:48 AM EDT 100 mg propofol (DIPRIVAN) infusion CONTINUOUS PRN, Starting on Tiarra 04/29/19 at 0848, Until Tiarra 04/29/19 at 0917, Anesthesia Intra-op, Routine Rate/Dose Change 04/29/2019 8:53 AM EDT 250 mcg/kg/min 213 mL/hr New Bag 04/29/2019 8:48 AM EDT 200 mcg/kg/min 170.4 mL/ hr documented in this encounter Care Teams Lead Recoverer Relationship Specialty Start Date End Date Marcia Hutchinson MD [address] [place] [address] PCP - General Family Medicine 02/12/19 documented as of this encounter
--- OUTSIDE RECORDS SUMMARY | 2024-12-08 08:58 | XMS_ITS | Encounter Summary ---
Author Organization [facility] Address [address] [place] [address] Care Team Providers Care Instant Potato Processor Name Role Phone Unknown, Provider Primary Care Provider Unava ilable Encounter Details Date Type Department Care Team (Late st Contact Info) Description 07/31/2018 Results Only [facility] [phone] Marcia Wilson MD [address] [place] [phone] Social History Tobacco Use Types Packs/Day Years [...] Procedure Name Priority Date/Time Associated Diagnosis Comments PAP TEST- RESULT ONLY Routine 07/31/2018 0:00 EDT documented in this encounter Results * PAP TEST- RESULT ONLY (07/31/2018 0:00 EDT) Pathology Report: CYTOPATHOLOGY REPORT Reports generated via electronic interface contain original data; however they are lacking the format of the original report. Caution should be taken when reading/interpreti ng unformatted reports. Name: ? SATURNINO ADAMS ? Accession #: ? [id number] : ? 1990 (Age: 27) ??F ?Collect Date: ? 07/31/2018 Location: ? [facility] ? Receive Date: ? 08/04/2018 Provider: ?MARCIA WILSON MD Copy to: ? Specimen/Source: ?Pap Test, Cervix/Endocervix, ThinPrep Imaging System with manual evaluation Last Menstrual Period: ? Previous Gynecologic Pathology: ? ASC-US: HX 2015 Other: ? Additional clinical information: Z12.4 Z00.00 ? SPECIMEN ADEQUACY ? Satisfactory for Evaluation - transformation zone component present GENERAL CATEGORIZATION ? Negative for Intraepithelial Lesion or Malignancy ? Document reviewed and electronically signed by: ? Muriel Covarrubias, CT(ASCP)(IAC) ? Report Date: ??08/07/2018 14:48 End of Report [facility] 07/31/2018 08/04/2018 us Marcia Wilson MD PATHOLOGY ORDERABLES Final Res ult [facility] [address] [place] [address] documented in this encounter Visit Diagnoses Not on filedocumented in this encounter Care Teams Instant Potato Processor Relationship Specialty Start Date End Date Unknown, Provider, PCP - General 08/02/15 04/09/22 documented as of this encounter
--- OUTSIDE RECORDS SUMMARY | 2024-12-08 08:58 | XMS_ITS | Encounter Summary ---
Author Organization [facility] Address [address] [place] [address] Care Team Providers Care Spot Worker Name Role Phone Unknown, Provider Primary Care Provider Joel John MD Primary Care Provider Marcia Lane MD Primary Care Provider [phone] Encounter Details Date Type Department Care Team (Late st Contact Info) Description 10/19/2020 Lab Requisition [facility] Pathology & Laboratory Medicine - [address] [address] Outr Resulting Lab, Provider Social History Tobacco [...] Comments CHLAMYDIA/N. GONORRHOEAE AMPLIFIED NUCLEIC ACID Routine 10/18/2020 15:30 EST documented in this encounter Results * CHLAMYDIA/N. GONORRHOEAE AMPLIFIED RNA (10/18/2020 15:30 EST) Neisseria gonorrhoeae Result Negative Negative 10/20/2020 14:00 EST [facility] Chlamydia trachomatis Result Negative Negative 10/20/2020 14:00 EST [facility] Urine URINE / Unknown 10/18/2020 1 5:30 EST 10/19/2020 17:06 EST Narrative [facility] - 10/20/2020 14:00 EST A first catch urine specimen is acceptable for detection of Gonorrhea and Chlamydia, but might detect up to 10% fewer infections when compared with vaginal and endocervical swab samples. us Provider Outr Resulting Lab MICROBIOLOGY - GENER AL ORDERABLES Final Result [facility] [address] [place] [address] documented in this encounter Visit Diagnoses Not on filedocumented in this encounter Care Teams Spot Worker Relationship Specialty Start Date End Date Unknown, Provider, PCP - General 08/02/15 04/09/22 Joel Romo MD PCP - General 04/10/22 09/21/23 Marcia Hutchinson MD [address] [place] [phone] PCP - General 09/22/23 documented as of this encounter
--- OUTSIDE RECORDS SUMMARY | 2024-12-08 08:58 | XMS_ITS | Referral Summary ---
Author Organization [facility] Address [address] [place] [address] Care Team Providers Care Senior Network Architect Name Role Phone Marcia Hutchinson MD Primary Care Provider [phone] Allergies Active Allergy Reactions Criticality Noted Date Comments Amoxicillin 09/22/2023 Medications citalopram (CELEXA) 10 mg tablet Take 1 Tablet by mouth daily. 3 Active lamoTRIgine (LAMICTAL) 25 mg tablet Take 1 Tablet by mouth daily. 3 Active norgestimate-et hinyl estradioL (ORTHO-CYCLEN) 0.25-35 mg-mcg per tablet Take 1 Tablet by mouth daily. 3 Active benzonatate (TESSALON) 200 mg capsuleIndicati ons:Acute cough Take 1 cap po TID 30 Capsule 3 Active Additional Information Patient not taking.Reported on 03/25/2024 guaiFENesin-cod eine (GUAIFENESIN AC) 100-10 mg/5 mL liquidIndicatio ns:Acute cough Take 10 mL by mouth 4 times daily as needed for Cough. Daily Max: 40 mL 120 mL 3 Active Additional Information Patient not taking.Reported on 03/25/2024 inhalational spacing device (AEROCHAMBER)In dications:Acute cough For use with inhaler 1 Each 3 Active Additional Information Patient not taking.Reported on 03/25/2024 liraglutide (VICTOZA 2-XANDER) 0.6 mg/0.1 mL (18 mg/3 mL) injectable pen Inject 0.6 mg into the skin daily. Active albuterol 90 mcg/actuation inhaler Inhale 2 Puffs as directed every 4 hours as needed for Wheezing. 1 Each Active Active Problems No known active problems Social History Tobacco Use Types Packs/Day Years Used Date Smoking Tobacco: Never Assessed Comments Unknown Sex and Gender Information Value Date Recorded Sex Assigned at Not on file Legal Sex Female 10:37 EDT Gender Identity Female 09/22/2023 14:51 EST Sexual Orientation Not on file Last Filed Vital Signs Vital Sign Reading Time Taken Comments Blood Pressure 136/66 03/25/2024 1102 EDT Pulse 84 03/25/2024 1102 EDT Temperature 37.1 ??C (98.7 ??F) 03/25/2024 1102 EDT Respiratory Rate 20 03/25/2024 1102 EDT Oxygen Saturation 96% 03/25/2024 1102 EDT Inhaled Oxygen Concentration - - Weight 147.4 kg (325 lb) 09/22/2023 1427 EST Height 162.6 cm (5' 4) 09/22/2023 1427 EST Body Mass Index 55.79 09/22/2023 1427 EST Plan of Treatment Not on file Care Teams Senior Network Architect Relationship Specialty Start Date End Date Marcia Hutchinson MD [address] [place] [phone] PCP - General 09/22/23
--- OUTSIDE RECORDS SUMMARY | 2024-12-08 08:58 | XMS_ITS | Encounter Summary ---
Author Organization [facility] Address [address] [place] [address] Care Team Providers Care Jewel Gauger Name Role Phone Unknown, Provider Primary Care Provider Unava ilable Encounter Details Date Type Department Care Team (Late st Contact Info) Description 08/01/2015 Results Only [facility] [phone] Sharmila Meyer MD [address] [address] Social History Tobacco Use Types Packs/Day Years [...] Diagnosis Comments PAP TEST- RESULT ONLY Routine 08/01/2015 0:00 EDT documented in this encounter Results * PAP TEST- RESULT ONLY (08/01/2015 0:00 EDT) Pathology Report: CYTOPATHOLOGY REPORT Reports generated via electronic interface contain original data; however they are lacking the format of the original report. Caution should be taken when reading/interpret ing unformatted reports. Name: ? SATURNINO ADAMS ? Accession #: ? [id number] ? : ? 1990 (Age: 24) ??F ?Collect Date: ? 08/01/2015 ? Location: ? [facility] ? Receive Date: ? 08/03/2015 ? Provider: SHARMILA MEYER MD Copy to: ? Final Report SPECIMEN ADEQUACY ? Satisfactory for Evaluation - transformation zone component present GENERAL CATEGORIZATION ? Epithelial Cell Abnormality INTERPRETATION ? Squamous Cell Abnormality - Atypical squamous cells, undetermined significance (ASC-US). EDUCATIONAL NOTES/RECOMMENDAT IONS ? [facility] recommends following ASCCP's 2012 Updated Consensus Guidelines for the Management of Abnormal Cervical Cancer Screening Tests and Cancer Precursors (JLGTD, 2013; 17(5):S1-S27). ??Consensus guidelines are available online at www.asccp.org. Last Menstrual Period: Hormonal/Contrace ptive status: Oral contraceptives Specimen/Source: ??Pap Test, Cervix/Endocervix , ThinPrep Imaging System with manual evaluation Document reviewed and electronically signed by: ? AGUSTO WATSON MD ? Report ??Date: 08/09/2015 12:00 HPV with Pap Test ? Date Ordered: ? 08/09/2015 ? Status: ?? Signed Out ?Date Complete: ? 08/17/2015 ? By: ??System Interface ? Date Reported: ? 08/17/2015 ? Interpretation RESULT: Negative for HPV. No E6 or E7 mRNA is detected from HPV types 16,18,31,33,35, 39,45,51,52,56,58 ,59,66, and 68 by linen clerk mediated amplification. Comments Document reviewed and electronically signed by: ? System Interface ? Report date: 08/17/2015 By the signature above, the attending physician certifies that he/she has personally conducted a gross and/or microscopic examination of the described specimens and rendered or confirmed the above diagnosis. End of Report [facility] 08/01/2015 08/03/2015 us Sharmila Meyer MD PATHOLOGY ORDERABLES Final Res ult [facility] [address] [place] [address] documented in this encounter Visit Diagnoses Not on filedocumented in this encounter Care Teams Jewel Gauger Relationship Specialty Start Date End Date Unknown, Provider, PCP - General 08/02/15 04/09/22 documented as of this encounter
--- OUTSIDE RECORDS SUMMARY | 2024-12-08 08:58 | XMS_ITS | Clinical Summary ---
Author Organization [facility] Address [address] [place] [address] Care Team Providers Care Hand Bootmaker Name Role Phone Marcia Hutchinson MD Primary Care Provider [phone] Allergies Active Allergy Reactions Criticality Noted Date [...] 14:51 EST Sexual Orientation Not on file Obstetrics History Last Filed Vital Signs Vital Sign Reading [...] 55.79 09/22/2023 1427 EST Plan of Treatment Health Maintenance Due Date Last Done Comments Hepatitis C Screen 1990 Hepatitis B Vaccine (1 of 3 - 19+ 3-dose series) 11/12 COVID-19 Vaccine ( season) 2024 Care Teams Hand Bootmaker Relationship Specialty Start Date End Date Marcia Hutchinson MD [address] [place] [address] PCP - General 09/22/23
--- OUTSIDE RECORDS SUMMARY | 2024-12-08 08:58 | XMS_ITS | Encounter Summary ---
Author Organization [facility] Address [address] [place] [address] Care Team Providers Care Tape Edge Machine Operator Name Role Phone Marcia Hutchinson MD Primary Care Provider [phone] Reason for Referral * Consult (Urgent) - Denied Specialty Diagnoses / Procedures [facility] Referred To Contact Obstetrics & Gynecology Diagnoses Abnormal uterine bleeding Kika Rivas PA-C Phone: tel: fax: [facility] - [address] [address] Phone: tel: fax: Referral ID Status Reason Start Date Expiration Date V isits Requested Visits Authorized [id number] Denied Specialty Services Required 09/22/2023 1 0 Question Answer Reason for Request: abnormal uternine bleeding Reason for Visit * Reason Comments Vaginal Bleeding Pt reports vaginal p ain and bleeding for last couple days - occurred last month as well. Pain radiating down inner thighs as well. Reports she notices blood when she wipes after using the bathroom - otherwise isn't wearing a pad or tampon. Is on control and takes it continuously so that she doesn't menstruate. Denies dysuria. Skin pwd, well appearing. Is also reporting feeling that heart rate is racing - short lived when it does happen. No c/o sensation now. Encounter Details Date Type Department Care Team (Late st Contact Info) Description 09/22/2023 16:27 EST - 09/22/2023 18:41 EST Emergency [facility] Emergency Department - [address] [id number] Kika Rivas PA-C [address] [place] [phone] Koko Reaves MD [address] [place] [phone] Abnormal uterine bleeding (Primary Dx) Discharge Disposition: Home or Self Care Social History Tobacco Use Types Packs/Day Years Used Date Smoking Tobacco: Never Assessed Comments Unknown Sex and Gender Information Value Date Recorded Sex Assigned at Not on file Legal Sex Female 10:37 EDT Gender Identity Female 09/22/2023 14:51 EST Sexual Orientation Not on file documented as of this encounter Last Filed Vital Signs Vital Sign Reading Time Taken Comments Blood Pressure 127/72 09/22/2023 1840 EST Pulse - - Temperature 36.5 ??C (97.7 ??F) 09/22/2023 1840 EST Respiratory Rate 18 09/22/2023 1840 EST Oxygen Saturation 98% 09/22/2023 1840 EST Inhaled Oxygen Concentration - - Weight 147.4 kg (325 lb) 09/22/2023 1427 EST Height 162.6 cm (5' 4) 09/22/2023 1427 EST Body Mass Index 55.79 09/22/2023 1427 EST documented in this encounter Discharge Instructions * Discharge Instructions* Kika Rivas PA-C - 09/22/2023 18:30 EST You are seen today for evaluation of abnormal uterine bleeding, your lab is reassuring and that youdo not have any anemia, your exam is reassuring that you do not have any infection. We discussed obtaining an ultrasound as a neck step in your evaluation, but also discussed this canbe obtained outpatient and follow-up with A/C TECHNICIAN. Return if you have severe sudden onset belly pain that is different or new, heavy abnormal vaginal bleeding going through greater than 1 pad an hour for greater than 3 hours in a row, any fever or vomiting or lightheadedness. A referral has been placed with gynecology, but you can also follow-up with PCP for ultrasound imaging. documented in this encounter Medications at Time of Discharge citalopram (CELEXA) 10 mg tablet Take 1 Tablet by mouth daily. 09/10/2023 lamoTRIgine (LAMICTAL) 25 mg tablet Take 1 Tablet by mouth daily. 09/10/2023 documented as of this encounter Discharge Disposition Disposition Code Departure Means Destination Comment s Home or Self [facility] documented in this encounter ED Notes * Deborah Francisco RN - 09/22/2023 1841 EST Discharge instructions and conditions requiring return to the ER provided to patient. Patient verbalized understanding. PIV removed. Patient ambulatory to ER exit with all belongings. * Marielena Jay RN - 09/22/2023 1451 EST Blood drawn via saline lock per protocol, rainbow tube(s) sent to lab per order. * Koko Reaves MD - 09/22/2023 1415 EST Emergency Department Visit I, Koko Reaves MD, reviewed this case with the Advanced Practice Provider (DEJA) and have reviewed the DEJA's note. My personal evaluation included discussion with DEJA and straight pin making machine operator resident. Based onthese elements I formulated, and/or participated substantively in the medical decision making, including assessing the level of risk of the patient's complaints and condition, establishing a diagnosis and/or selecting management options. My personal documentation is as follows: neg HCG, straight pin making machine operator exam reassuring, sending STI testing though this seems less likely Final diagnoses: Abnormal uterine bleeding Medical Decision Making Grisel Adams is a 32 y.o. female with elevated BMI, on OCPs, who presents to the ED for evaluation of abnormal uterine bleeding for 3 days, in the setting of atypical timing, but not abnormally heavy, associated with some suprapubic cramping, and ongoing history of painful intercourse awaitingoutpatient follow- up with PCP. UPT negative, abdomen is benign low risk for ectopic or PID, and A/C TECHNICIAN exam is not consistent with PID. STI testing sent just to be sure. CBC, BMP, unremarkable H&H is stable. Considered ultrasound of the pelvis for further work-up of abnormal uterine bleeding, but this has been ongoing symptoms for over 1 month, history not consistent with torsion, exam and history not consistent with PID or TOA, and patient has a negative test. Discussed obtaining ultrasound the ED versus outpatient, but feel this patient is amenable to outpatient and she is agreeing with the plan. Referral placed to gynecology, and can also follow-up with PCP. Also reviewed chart and that she had Pap smear 1 month ago and normal A/C TECHNICIAN exam then. Laboratory data was reviewed. Medical Decision Making Abnormal uterine bleeding: complicated acute illness or injury Amount and/or Complexity of Data Reviewed Labs: ordered. Final diagnoses: Abnormal uterine bleeding Disposition: Discharged Chief complaint: abnormal uterine bleeding JHONNY Adams is a 32 y.o. female with elevated BMI, on OCPs, who presents to the ED for evaluation of abnormal uterine bleeding for 3 days. Patient reports she has had ongoing symptoms of abnormal bleeding for the last 3 days describing she is not due for her menstrual cycle for several weeks and only gets it every 3 months, but last month and this month had some spotting. She reports she isnot using a pad or tampon but when she wiped she noticed that she is spotting and has some blood. She reports some intermittent suprapubic cramping, but no radiation of pain to the back or flank. No vomiting or fever. No discharge or abnormal smell. Reports that she is sexually active monogamous partner. For the past year she has had pain with intercourse and is currently seeing her PCP but due to the return of symptoms she decided to come to the ED. Unlikely to be as she has been on oral contraceptives for several months. No history of PID. No history of ectopic. Denies any unilateral sided pain. Denies any dysuria or hematuria. Denies any constipation. No prior abdominal surgeries or pelvic surgeries. History was provided by: Patient Records reviewed include:reviewed medication list, past imaging Patient's pertinent PMH, FH, SH were reviewed and edited as necessary. Nursing notes reviewed. A medical screening exam was performed. Physical Exam BP 127/72 (BP Cuff Location: Right arm, BP Patient Position: Semi fowlers) Temp 36.5 ??C (97.7 ??F) (Oral) Resp 18 Ht 162.6 cm (64) Wt (!) 147.4 kg (325 lb) SpO2 98% BMI 55.79 kg/m?? Physical Exam Vitals and nursing note reviewed. Exam conducted with a armored car guard present. HENT: Head: Atraumatic. Pulmonary: Effort: Pulmonary effort is normal. Abdominal: Palpations: Abdomen is soft. Tenderness: There is no abdominal tenderness. Genitourinary: General: Normal vulva. Exam position: Supine. Pubic Area: No rash. Labia: Right: No rash. Left: No rash. Cervix: No cervical motion tenderness. Uterus: Not tender. Adnexa: Right: No tenderness. Left: No tenderness. Comments: Scant dark blood in vaginal vault Musculoskeletal: Cervical back: Normal range of motion. Skin: General: Skin is warm and dry. Neurological: Mental Status: She is alert and oriented to person, place, and time. Procedures Procedures documented in this encounter Plan of Treatment Pending Results Name Type Priority Associated Diagnoses Date /Time POCT URINE CLINITEK (DIPSTICK) - DOES NOT REFLEX Lab STAT 17:19 EST Scheduled Orders Name Type Priority Associated Diagnoses Orde r Schedule POCT URINE CLINITEK (DIPSTICK) - DOES NOT REFLEX Lab STAT One Time STAT fo r 1 Occurrences starting 09/22/2023 until 09/22/2023 POCT URINE DIPSTICK, CLINITEK Point of Care Testing STAT Once for 1 Occurrences starting 09/22/2023 until 09/22/2023 Scheduled Referrals Name Type Priority Associated Diagnoses Order Schedule AMB CONS/FOLLOW UP GYNECOLOGY Outpatient Referral Urgent Abnormal uterine bleeding Expected: 09/24/2023 (Approximate), Expires: 09/22/2024 documented as of this encounter Procedures Procedure Name Priority Date/Time Associated Diagnosis Comments MOLECULAR VAGINITIS/VAGINOSIS ASSAY STAT 09/22/2023 17:40 EST CHLAMYDIA/N. GONORRHOEAE AMPLIFIED NUCLEIC ACID STAT 09/22/2023 17:40 EST POCT TEST, CLINITEK STAT 09/22/2023 17:24 EST POCT URINE CLINITEK (DIPSTICK) - DOES NOT REFLEX STAT 09/22/2023 17:22 EST POCT URINE DIPSTICK, CLINITEK STAT 09/22/2023 17:22 EST POCT CSN BARCODE URINE PREG TEST STAT 09/22/2023 17:19 EST POCT TEST, CLINITEK ORDER STAT 09/22/2023 17:19 EST POCT CSN BARCODE URINE DIPSTICK STAT 09/22/2023 17:19 EST HOLD GREEN TOP STAT 09/22/2023 14:50 EST HOLD BLUE TOP STAT 09/22/2023 14:50 EST COMPREHENSIVE METABOLIC PANEL (CMP) STAT 09/22/2023 14:50 EST COMPLETE BLOOD COUNT AND DIFFERENTIAL STAT 09/22/2023 14:49 EST documented in this encounter Results * MOLECULAR VAGINITIS/VAGINOSIS ASSAY (09/22/2023 17:40 EST) Korina Species Negative Negative 11:58 EST [facility] Korina glabrata Negative Negative 09/23/2023 11:58 EST [facility] Trichomonas Vaginalis Negative Negative 09/23/2023 11:58 EST [facility] BV (Bacterial vaginosis) Negative Negative 09/23/2023 11:58 EST [facility] Swab VAGINAL STRUCTURE / Unknown Swab / Unknown 09/22/2023 17:40 EST 09/22/2023 18:25 EST Kika Rivas PA-C MICROBIOLOGY - GENERAL TOMÁS COLON Final Result Performing Organization Address [facility] de Phone Number [facility] [address] [place] [address] * CHLAMYDIA/N. GONORRHOEAE AMPLIFIED RNA (09/22/2023 17:40 EST) Neisseria gonorrhoeae Result Negative Negative 09/23/2023 12:15 EST [facility] Chlamydia trachomatis Result Negative Negative 09/23/2023 12:15 EST [facility] Swab VAGINAL STRUCTURE / Unknown Swab / Unknown 09/22/2023 17:40 EST 09/22/2023 18:25 EST iKka Rivas PA-C MICROBIOLOGY - GENERAL TOMÁS COLON Final Result Performing Organization Address [facility] de Phone Number [facility] [address] [place] [address] * POCT TEST, CLINITEK (09/22/2023 17:24 EST) UPT Result Negative Negative 09/22/2023 17:30 EST [facility] HN LAB COMMENT (CLINITEK, UPT) Test performed at Emergency Department 09/22/2023 17:30 EST [facility] Comment:False negative resul ts may occur in women who are beyond 5-8 weeks gestation. Diagnosis of should be based on a correlation of test results with typical clinical signs and symptoms. Urine URINE SPECIMEN OBTAINED BY CLEAN CATCH PROCEDURE / Unknown 09/22/2023 17:24 EST 09/22/2023 17:30 EST Felicia Miles MD POINT OF CARE TEST ORDERAB LES Final Result [facility] [address] [place] [address] * (ABNORMAL) POCT URINE DIPSTICK, CLINITEK (09/22/2023 17:22 EST) Color, UA Yellow Yellow 09/22/2023 17:24 [facility] Clarity, UA Clear Clear 09/22/2023 17:24 [facility] Glucose, UA Negative Negative mg/dL 09/22/2023 17:24 [facility] Bilirubin, UA Negative Negative 09/22/2023 17:24 [facility] Ketones, UA Negative Negative 09/22/2023 17:24 [facility] Specific [place], Urine >=1.030(A) 1.001 - 1.030 09/22/2023 17:24 [facility] Blood, UA 3+(A) Negative 09/22/2023 17:24 [facility] pH, UA 5.5 <8.5 09/22/2023 17:24 [facility] Protein, UA Trace(A) Negative mg/dL 09/22/2023 17:24 [facility] Urobilinogen, UA 0.2 0.2 - 1.0 mg/dL 09/22/2023 17:24 [facility] Nitrite, UA Negative Negative 09/22/2023 17:24 [facility] Leuk Esterase Negative Negative 09/22/2023 17:24 [facility] HN LAB COMMENT (CLINITEK, UR) Test performed at Emergency Department 09/22/2023 17:24 [facility] Urine URINE SPECIMEN OBTAINED BY CLEAN CATCH PROCEDURE / Unknown 09/22/2023 17:22 EST 09/22/2023 17:24 EST us Kika Rivas PA-C POINT OF CARE TEST ORDERABL ES Final Result [facility] [address] [place] [address] * POCT CSN BARCODE URINE DIPSTICK (09/22/2023 17:19 EST) Urine URINE SPECIMEN OBTAINED BY CLEAN CATCH PROCEDURE / Unknown Urine Collect / Unknown 09/22/2023 17:19 EST 09/22/2023 17:19 EST us Felicia Miles MD LAB INFO SERVICE AND SUPPO RT & PHONE RESULT Final Result Performing Organization Address City/[facility]/ZIP Co de Phone Number [facility] [address] [place] [address] * POCT CSN BARCODE URINE PREG TEST (09/22/2023 17:19 EST) Urine URINE SPECIMEN OBTAINED BY CLEAN CATCH PROCEDURE / Unknown Urine Collect / Unknown 09/22/2023 17:19 EST 09/22/2023 17:19 EST us Felicia Miles MD LAB INFO SERVICE AND SUPPO RT & PHONE RESULT Final Result Performing Organization Address [facility]/ZIP Co de Phone Number [facility] [address] [place] [address] * HOLD GREEN TOP (09/22/2023 14:50 EST) Hold Hold 09/22/2023 16:01 EST [facility] Blood VENOUS BLOOD / Unknown Venipuncture / Unknown 09/22/2023 14:50 EST 09/22/2023 14:55 EST us Felicia Miles MD LAB INFO SERVICE AND SUPPO RT & PHONE RESULT Final Result Performing Organization Address City/[facility]/ZIP Co de Phone Number [facility] [address] [place] [address] * HOLD BLUE TOP (09/22/2023 14:50 EST) Hold Hold 09/22/2023 16:01 EST [facility] Blood VENOUS BLOOD / Unknown Venipuncture / Unknown 09/22/2023 14:50 EST 09/22/2023 14:58 EST us Felicia Miles MD LAB INFO SERVICE AND SUPPO RT & PHONE RESULT Final Result [facility] [address] [place] [address] * (ABNORMAL) COMPREHENSIVE METABOLIC PANEL (CMP) (09/22/2023 14:50 EST) Sodium 138 136 - 145 mmol/L 09/22/2023 15:23 [facility] Potassium 4.3 3.5 - 5.0 mmol/L 09/22/2023 15:23 [facility] Chloride 105 96 - 110 mmol/L 09/22/2023 15:23 [facility] CO2 Total 21(L) 22 - 32 mmol/L 09/22/2023 15:23 [facility] Glucose 80 70 - 99 mg/dl 09/22/2023 15:23 [facility] BUN 8(L) 10 - 26 mg/dL 09/22/2023 15:23 [facility] Creatinine 0.51(L) 0.52 - 1.04 mg/dL 09/22/2023 15:23 [facility] eGFR 128 >60 mL/min/1.7 3m2 09/22/2023 15:23 [facility] Total Protein 7.3 6.3 - 8.2 g/dL 09/22/2023 15:23 [facility] Albumin 4.2 3.4 - 4.9 g/dL 09/22/2023 15:23 [facility] Alkaline Phosphatase 72 38 - 126 U/L 09/22/2023 15:23 [facility] AST 18 15 - 46 U/L 09/22/2023 15:23 [facility] ALT 15 <35 U/L 09/22/2023 15:23 [facility] Bilirubin, Total 0.5 <1.4 mg/dL 09/22/20 15:23 [facility] Calcium 9.4 8.5 - 10.5 mg/dL 09/22/2023 15:23 [facility] Albumin/Globulin Ratio 1.4 1.0 - 2.5 g/dL 09/22/2023 15:23 [facility] Anion Gap 12 5 - 14 mmol/L 09/22/2023 15:23 [facility] Blood VENOUS BLOOD / Unknown Venipuncture / Unknown 09/22/2023 14:50 EST 09/22/2023 14:55 EST us Felicia Milse MD CHEMISTRY & BLOOD GAS TOMÁS COLON Final Result [facility] [address] [place] [address] * (ABNORMAL) COMPLETE BLOOD COUNT AND DIFFERENTIAL (09/22/2023 14:49 EST) WBC 12.67(H) 4.00 - 12.40 K/cmm 09/22/2023 15:14 [facility] RBC 4.39 3.86 - 5.04 M/cmm 09/22/2023 15:14 [facility] Hemoglobin 11.5(L) 11.6 - 15.2 g/dL 09/22/2023 15:14 [facility] HCT 35.4 34.9 - 44.4 % 09/22/2023 15:14 [facility] MCV 81 81 - 98 fL 09/22/2023 15:14 [facility] MCH 26.2(L) 26.7 - 33.3 pg 09/22/2023 15:14 [facility] MCHC 32.5 32.1 - 35.9 g/dL 09/22/2023 15:14 [facility] RDW-CV 14.7(H) <14.7 % 09/22/2023 15:14 [facility] RDW-SD 43.1 <50.4 fl 09/22/2023 15:14 [facility] PLT 437(H) 141 - 377 K/cmm 09/22/2023 15:14 [facility] MPV 9.9 9.5 - 12.7 fL 09/22/2023 15:14 [facility] % Neutrophils 65.0 % 09/22/2023 15:14 [facility] % Lymphocytes 28.6 % 09/22/2023 15:14 [facility] % Monocytes 4.8 % 09/22/2023 15:14 [facility] % Eosinophils 0.8 % 09/22/2023 15:14 [facility] % Basophils 0.6 % 09/22/2023 15:14 [facility] % Immature Grans 0.2 % 09/22/20 15:14 [facility] Absolute Neutrophils 8.25 2.20 - 8.85 K/cmm 09/22/2023 15:14 [facility] Absolute Lymphocytes 3.62(H) 1.09 - 3.30 K/cmm 09/22/2023 15:14 [facility] Absolute Monocytes 0.61 0.10 - 0.80 K/cmm 09/22/2023 15:14 [facility] Absolute Eosinophils 0.10 0.03 - 0.61 K/cmm 09/22/2023 15:14 [facility] ABS Basophils 0.07 0.01 - 0.11 K/cmm 09/22/2023 15:14 [facility] Absolute Immature Grans 0.02 0.00 - 0.06 K/cmm 09/22/2023 15:14 [facility] Type of Differential: Auto 09/22/2023 15:14 [facility] Blood VENOUS BLOOD / Unknown Venipuncture / Unknown 09/22/2023 14:49 EST 09/22/2023 14:55 EST us Felicia Miles MD PACKAGES & DNA PROBE ORDER [email or web address] Final Result [facility] [address] [place] [address] documented in this encounter Visit Diagnoses Diagnosis Abnormal uterine bleeding- Primary Unspecified disorder of menstruation and other abnormal bleeding from female genital tract documented in this encounter Care Teams Tape Edge Machine Operator Relationship Specialty Start Date End Date Marcia Hutchinson MD [address] [place] [id number] PCP - General 09/22/23 documented as of this encounter
--- OUTSIDE RECORDS SUMMARY | 2024-12-08 08:58 | XMS_ITS | Encounter Summary ---
Author Organization [facility] Address [address] [place] [address] Care Team Providers Care Medical Office Technology Instructor Name Role Phone Joel Romo MD Primary Care Provider Marcia Lane MD Primary Care Provider Encounter Details Date Type Department Care Team (Late st Contact Info) Description 05/09/2022 Lab Requisition [facility] Pathology & Laboratory Medicine - [address] [address] Marcia Hutchinson, YARONC Encounter for general adult medical examination without abnormal findings; Encounter for screening for malignant neoplasm of cervix Social History Tobacco Use Types Packs/Day Years [...] Associated Diagnosis Comments CHLAMYDIA/N. GONORRHOEAE AMPLIFIED NUCLEIC ACID, THINPREP Today 05/08/2022 15:30 EDT PAP TEST Today 05/08/2022 3:30 EDT Encounter for general adult medical examination without abnormal findings Encounter for screening for malignant neoplasm of cervix HPV DNA DETECTION WITH GENOTYPING, PCR Today 05/08/2022 3:30 EDT Encounter for general adult medical examination without abnormal findings Encounter for screening for malignant neoplasm of cervix documented in this encounter Results * CHLAMYDIA/N. GONORRHOEAE AMPLIFIED RNA, THINPREP (05/08/2022 15:30 EDT) Neisseria gonorrhoeae Result Negative Negative 05/10/2022 15:09 EDT [facility] Chlamydia trachomatis Result Negative Negative 05/10/2022 15:09 EDT [facility] Papanicolaou smear specimen (specimen) CERVIX UTERI STRUCTURE / Unknown 05/08/2022 15:30 EDT 05/10/2022 7:45 EDT Marcia Hutchinson PA-C MICROBIOLOGY - GENERAL ORDER YASHIRA Final Result Performing Organization Address City/[facility] Co de Phone Number [facility] [address] [place] [address] * HUMAN PAPILLOMAVIRUS (HPV) DETECTION-HIGH RISK TYPES (05/08/2022 3:30 EDT) HPV other High Risk types, PCR Negative Negative 05/22/2022 7:11 EDT [facility] Comment:No E6 or E7 mRNA is detected from HPV types 16,18,31,33,35,39,45,51,52,56,58,59,66, and 68 by chocolate dipper mediated amplification. Papanicolaou smear specimen (specimen) CERVIX UTERI STRUCTURE / Unknown 05/08/2022 3:30 EDT 05/17/2022 12:40 EDT Marcia Hutchinson PA-C MICROBIOLOGY - GENERAL ORDER YASHIRA Final Result Performing Organization Address City/[facility]/ZIP Co de Phone Number [facility] [address] [place] [address] * PAP TEST (05/08/2022 3:30 EDT) Specimens A. Cervix and/or Endocervix , ThinPrep Imaging System with Manual Evaluation 05/22/2022 7:11 EDT [facility] Specimen Adequacy Satisfactory for Evaluation - transformation zone component present 05/22/2022 7:11 EDT [facility] General Categorization Epithelial Cell Abnormality 05/22/2022 7:11 EDT [facility] Descriptive Diagnosis Squamous Cell Abnormality - Atypical squamous cells, undetermined significance (ASC-US). 05/22/2022 7:11 EDT [facility] Educational Comments [facility] recommends following the ASCP's management guidelines which may be found at www.ascp.org 05/22/2022 7:11 T [facility] Attestation By the signature below, the attending physician certifies that they have personally conducted a gross and/or microscopic examination of the described specimens and rendered or confirmed the above diagnosis. 05/22/2022 7:11 T [facility] at 0711 Clinical History See below 05/22/20 7:11 [facility] HPV The result for the Human Papillomavirus (HPV) Detection-High Risk Types is Negative. No E6 or E7 mRNA is detected from HPV types 16,18,31,33,35,3 9,45,51,52,56,58 ,59,66, and 68 by chocolate dipper mediated amplification.Te sting was performed on specimen [id number] and was resulted on 05/22/2022 0710 EDT by RANDOLPH, LAB INSTRUMENT RESULTS IN 05/22/2022 7:11 T [facility] Performing Lab [facility] 05/22/2022 7:11 T [facility] Scanned Images 05/22/2022 7:11 T [facility] Papanicolaou smear specimen (specimen) CERVIX UTERI STRUCTURE / Unknown 05/08/2022 3:30 EDT 05/10/2022 15:24 EDT us Marcia Hutchinson PA-C PATHOLOGY ORDERABLES Final R esult [facility] [address] [place] [address] documented in this encounter Visit Diagnoses Diagnosis Encounter for general adult medical examination without abnormal findings Unspecified general medical examination Encounter for screening for malignant neoplasm of cervix Screening for malignant neoplasm of the cervix documented in this encounter Care Teams Medical Office Technology Instructor Relationship Specialty Start Date End Date Joel Romo MD PCP - General 04/10/22 09/21/23 Marcia Hutchinson MD [address] [place] [address] PCP - General 09/22/23 documented as of this encounter
--- OUTSIDE RECORDS SUMMARY | 2024-12-08 08:58 | XMS_ITS | Encounter Summary ---
Author Organization [facility] [place] [address] Care Team Providers Care Curve Cleaner Name Role Phone Marcia Hutchinson MD Primary Care Provider [phone] Reason for Visit * Auth/Cert Specialty Diagnoses / Procedures Referred By Contac t Referred To Contact Diagnoses MEY, fm hx of Adenomous polyps, abd pain, rectal bleeding - CONSULT Procedures PRO UPPER GI ENDOSCOPY, DIAGNOSTIC PRO COLONOSCOPY, DIAGNOSTIC EGD, UPPER GI ENDOSCOPY COLONOSCOPY, DIAGNOSTIC Referral ID Status Reason Start Date Expiration Date Visits Re quested Visits Authorized [id number] 1 1 Encounter Details Date Type Department Care Team (Late st Contact Info) Description 04/29/2019 8:45 AM EDT - 04/29/2019 9:45 AM EDT [place] [address] Kevin Lacy MD [facility] [place] [address] EGD WITH BIOPSY (WRVU 2.39) Social History Tobacco Use Types Packs/Day Years [...] Sign Reading Time Taken Comments Blood Pressure 124/75 04/29/2019 9:40 AM EDT Pulse 88 04/29/2019 9:30 AM EDT Temperature 36.9 ??C (98.4 ??F) 04/29/2019 8:04 AM ED T Respiratory Rate 18 04/29/2019 9:30 AM EDT Oxygen Saturation 96% 04/29/2019 9:40 AM EDT Inhaled Oxygen Concentration - - Weight 142 kg (313 lb) 04/29/2019 8:10 AM EDT Height 164 cm (5' 4.57) 04/29/2019 8:10 AM EDT Body Mass Index 52.79 04/29/2019 8:10 AM EDT documented in this encounter Discharge Instructions * Discharge Instructions* Marcia Atkinson, RN - 04/29/2019 9:29 AM EDT UPPER GI ENDOSCOPY with biopsies WHAT TO EXPECT AFTER THE PROCEDURE Medications You may have a mild sore throat. Ice chips, popsicles, over the counter throat lozenges or spray may help numb your throat. This procedure should not cause a fever. Call your healthcare provider or seek immediate medical attention if: You have trouble swallowing. You have belly pain. Your stools are black or tarlike or have streaks of blood. You are sick to your stomach or cannot keep fluids down. Watch closely for changes in your health, and be sure to contact your doctor IF Your throat still hurts after a day or two You do not get better as expected. Colonoscopy with biopsies What to expect after the procedure You may feel a little more gassy or bloated than usual. This is normal. You should expect the return of normal bowel function in the 2 to 3 days. Activity Because of the sedation that you received your judgement and reaction time are effected ?? Go home and rest quietly for the remainder of the day. You may resume your normal activities tomorrow. ?? Change from one position to the next slowly. You may lose your balance unexpectedly ?? Be careful on stairs, as you may be unsteady on your feet FOR THE NEXT 24 HRS ?? DO NOT DRIVE OR OPERATE ANY MACHINERY ?? DO NOT DRINK ALCOHOLIC BEVERAGES ?? DO NOT SIGN LEGAL DOCUMENTS ?? If you are a smoker: DO NOT SMOKE WHILE YOU ARE ALONE Diet ?? Start by eating small portions of foods that ordinarily will not upset your stomach . Avoid gas producing foods for the next few days ?? Be gentle with what you choose to start with ?? Drink plenty of fluids ( unless your doctor has told you not to). IV SITE-- slight redness, or tenderness is normal. You can use warm compresses if you become concerned. If the tenderness +/or redness increases or foul drainage and a red streak occurs, please contact your PCP immediately When shoud you call for help? Call 911 anytime you think you may need emergency care. For example If you pass out ( loss of consciousness) If you pass maroon or bloody stools If you have severe belly pain Call your doctor now or seek immediate medical care If your stools are black and tarlike If your stools have streaks of blood, but you did not have a biopsy or any polyps removed If you have belly pain, or your belly is swollen and firm If you vomit If you have a fever If you are very dizzy Watch closely for changes in your health, and be sure to contact your doctor if you have any problems Your doctor will let you know when you will need your next colonoscopy. The results of your test and your risk for colorectal cancer will help your doctor decide how often you need to be checked. Friday-Friday Same Day Endo [phone] 7a-8p Otherwise contact [phone] and ask to speak to the surgical dressing maker consultant dietitian Follow up care is a tolbert part of your treatment and safety. Be sure to make and go to all appointments, and call your doctor if you are having problems. Discharge instructions reviewed with patient who expresses understanding documented in this encounter Medications at Time of Discharge Medication Sig Dispensed Refills Start Date End Date citalopram (CELEXA) 40 mg Tablet Take 60 mg by mouth daily. documented as of this encounter H&P Notes * Kevin Lacy MD - 04/29/2019 9:00 AM EDT Gastroenterology and Hepatology Pre-Procedure History and Physical Exam Procedure: Colonoscopy: EGD Indication: fe def anemia There is no problem list on file for this patient. EXAM: HEENT: Airway examined, oropharynx clear Mallampati Score: I (soft palate, uvula, fauces, tonsillar pillars visible) LUNGS: Clear to auscultation HEART: Regular rate and rhythm, normal S1, S2 ABDOMEN: Normal bowel sounds, soft, non tender, non distended, A/P Proceed with the planned endoscopic procedure. ASA 1 - Normal health patient Sedation Plan: anesthesia Risks and benefits of the procedure explained to the patient. Consent signed. * Kevin Lacy MD - 04/29/2019 8:28 AM EDT Gastroenterology and Hepatology Pre-Procedure History and Physical Exam Procedure: Colonoscopy: Indication: pre kidney transplant There is no problem list on file for this patient. EXAM: HEENT: Airway examined, oropharynx clear Mallampati Score: II (soft palate, uvula, fauces visible) LUNGS: Clear to auscultation HEART: Regular rate and rhythm, normal S1, S2 ABDOMEN: Normal bowel sounds, soft, non tender, non distended, A/P Proceed with the planned endoscopic procedure. ASA 1 - Normal health patient Sedation Plan: anesthesia Risks and benefits of the procedure explained to the patient. Consent signed. documented in this encounter Plan of Treatment Not on file documented as of this encounter Procedures Procedure Name Priority Date/Time Associated Diagnosis Comments SPECIMEN TO PATHOLOGY Routine 04/29/2019 9:13 AM EDT SPECIMEN TO PATHOLOGY Routine 04/29/2019 9:01 AM EDT SPECIMEN TO PATHOLOGY Routine 04/29/2019 9:01 AM EDT SURGICAL PATHOLOGY REPORT Routine 04/29/2019 8:51 AM EDT COLONOSCOPY FLEXIBLE, WITH BX (WRVU 3.56) 04/29/2019 8:44 AM EDT MEY, fm hx of Adenomous polyps, abd pain, rectal bleeding - CONSULT EGD WITH BIOPSY (WRVU 2.39) 04/29/2019 8:44 AM EDT MEY, fm hx of Adenomous polyps, abd pain, rectal bleeding - CONSULT COLONOSCOPY Routine 04/29/2019 8:28 AM EDT UPPER GI ENDOSCOPY Routine 04/29/2019 8: 27 AM EDT documented in this encounter Results * Specimen to Pathology (04/29/2019 9:13 AM EDT) AP Specimen 04/29/2019 9:13 AM EDT 04/29/2019 9:13 AM EDT Narrative [facility] - 04/29/2019 9:13 AM EDT Specimen requisition ordered. ??Separate Pathology report to follow Kevin Lacy MD PATHOLOGY/CYTOLOGY O KEISHA Performing Organization Address [facility] [place] [address] * Specimen to Pathology (04/29/2019 9:01 AM EDT) AP Specimen 04/29/2019 9:01 AM EDT 04/29/2019 9:01 AM EDT Narrative [facility] - 04/29/2019 9:01 AM EDT Specimen requisition ordered. ??Separate Pathology report to follow Kevin Lacy MD PATHOLOGY/CYTOLOGY O KEISHA Performing Organization Address [facility] [place] [address] * Specimen to Pathology (04/29/2019 9:01 AM EDT) AP Specimen 04/29/2019 9:01 AM EDT 04/29/2019 9:01 AM EDT Narrative [facility] - 04/29/2019 9:01 AM EDT Specimen requisition ordered. ??Separate Pathology report to follow Kevin Lacy MD PATHOLOGY/CYTOLOGY O KEISHA Performing Organization Address [facility] [place] [address] * Surgical Pathology Report (04/29/2019 8:51 AM EDT) Final Diagnosis [id number] ? Location: 4T; EA10; A The signing pathologist has (i) examined the relevant preparation(s) for the specimen(s) and (ii) rendered or confirmed the diagnosis(es). . ?Surgical Pathology DIAGNOSIS A - Duodenum, biopsy: Duodenal mucosa within normal limits, including preserved villous architecture. 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 No goblet cell metaplasia is seen. C - Random colon, biopsy: Colonic mucosa within normal limits. CR-PX Electronically signed by: ??Judah Chan MD Verified: ??05/03/2019 ?Pathologist Performed at: ??-[facility] Dept. of Pathology, [place], [place] CLINICAL INFORMATION Specimen Submitted: A - Duodenum biopsies B - Z-line biopsies C - Random colon biopsies Clinical History and Diagnosis: ID [id number] Z line SPECIMEN PROCESSING A - Labeled/Fixativ e: Duodenum biopsies, formalin. Quantity/Size: Multiple, 0.3-0.4 cm. Tissue Description: Soft, pink tissues. Sections/Proces sing: Submitted en toto ??in 2 cassettes labeled A1-A2. B - Labeled/Fixativ e: Z line biopsies, formalin. Quantity/Size: Four, 0.1-0.3 cm. Tissue Description: Soft, pink tissues. Sections/Proces sing: Submitted en toto ??in 1 cassette labeled B1. C - Labeled/Fixativ e: Random colon biopsies, formalin. Quantity/Size: Multiple, 0.3-0.5 cm. Tissue Description: Soft, pink tissues. Sections/Proces sing: Submitted en toto ??in 2 cassettes labeled C1-C2. ??ejr 05/03/2019 3:55 PM EDT [facility] GI Biopsy 04/29/2019 8:51 AM EDT 04/29/2019 8:51 AM EDT GI Biopsy 04/29/2019 8:51 AM EDT 04/29/2019 8:51 AM EDT GI Biopsy 04/29/2019 8:51 AM EDT 04/29/2019 8:51 AM EDT Kevin Lacy MD PATHOLOGY/CYTOLOGY O KEISHA [facility] [place] [address] * COLONOSCOPY (04/29/2019 8:28 AM EDT) COLONOSCOPY [facility] Endoscopy Procedure Date: 04/29/2019 8:28 AM ? Patient Name: Grisel Adams ? Date of : 1990 ? Age: 28 ? Order #: [id number] ? Instrument Name: [id number] ? Procedure: ? Colonoscopy Indications: ? Fe def anemia, alternating ? constipation and diarrhea Providers: ? Kevin Lacy MD, Jayna Sherman, ? RN, Nubia Ardon, Guest Experience Specialist Referring MD: ?Marcia Hutchinson MD Medicines: ? Propofol per Anesthesia Complications: ? No immediate complications. Procedure: ? The procedure, indications, benefits, ? risks and alternatives were explained ? to the patient. Specifically ? discussed were potential ? complications including, but not ? limited to, bleeding, perforation, ? infection, missing a cancer, and ? adverse medication reactions. The ? patient was placed in the left ? lateral decubitus position, and a ? digital rectal exam was performed. ? The Colonoscope was inserted in the ? anus and under direct visualization, ? advanced to the terminal ileum. ? Careful inspection was made as the ? colonoscope was withdrawn. The ? colonoscopy was performed without ? difficulty. The patient tolerated the ? procedure well. The quality of the ? bowel preparation was evaluated using ? the BBPS (Aldrich Bowel Preparation ? Scale) with scores of: Right Colon = ? 3, Transverse Colon = 3 and Left ? Colon = 3 (entire mucosa seen well ? with no residual staining, small ? fragments of stool or opaque liquid). ? The total BBPS score equals 9. Scope ? withdrawal time was 10 minutes. ? Findings: ? The perianal and digital rectal examinations were ? normal. ? The colon mucosa (entire examined portion) appeared ? normal. Biopsies were taken with a cold forceps for ? histology. ? The terminal ileum appeared normal. ? Internal hemorrhoids were found during retroflexion. ? The hemorrhoids were medium-sized. ? Moderate Sedation: ? I was present during the intraservice time as ? documented by the sedation RN. ? Not applicable - See Anesthesia documentation Impression: ?- The entire examined colon is ? normal. Biopsied. ? - The examined portion of the ileum ? was normal. ? - Internal hemorrhoids. Recommendation: ?- Await pathology results. ? Attending Participation: ? I personally performed the entire procedure. ? __ Kevin Lacy MD 04/29/2019 9:19:56 AM This report has been signed electronically. Number of Addenda: 0 Note Initiated On: 04/29/2019 8:28 AM PROVATION 04/29/2019 8:28 AM EDT Marcia Hutchinson MD GENERAL SURGICAL ORD ERABLES PROVATION * UPPER GI ENDOSCOPY (04/29/2019 8:27 AM EDT) UPPER GI ENDOSCOPY [facility] Endoscopy Procedure Date: 04/29/2019 8:27 AM ? Patient Name: Grisel Adams ? Date of : 1990 ? Age: 28 ? Order #: [id number] ? Instrument Name: [id number] ? Procedure: ? Upper GI endoscopy Indications: ? Fe def anemia Providers: ? Kevin Lacy MD, Jayna Sherman, ? RN, Nubia Ardon, Guest Experience Specialist Referring : ?Marcia Hutchinson MD Medicines: ? Propofol per Anesthesia Complications: ? No immediate complications. Procedure: ? The procedure, indications, benefits, ? risks and alternatives were explained ? to the patient. Specifically ? discussed were potential ? complications including, but not ? limited to, bleeding, perforation, ? infection, missing a cancer, and ? adverse medication reactions. The ? Endoscope was introduced through the ? mouth, and advanced to the third part ? of duodenum. The patient tolerated ? the procedure well. The upper GI ? endoscopy was accomplished without ? difficulty. The patient tolerated the ? procedure well. ? Findings: ? The examined esophagus was normal. ? The Z-line was irregular and was found 36 cm from the ? incisors. Biopsied. ? The stomach was normal. ? The examined duodenum was normal. Biopsies were taken ? with a cold forceps for histology. ? Moderate Sedation: ? I was present during the intraservice time as ? documented by the sedation RN. Impression: ?- Normal esophagus. ? - Z-line irregular, 36 cm from the ? incisors. ? - Normal stomach. ? - Normal examined duodenum. Biopsied. Recommendation: ?- Await pathology results. ? Attending Participation: ? I personally performed the entire procedure. ? __ Kevin Lacy MD 04/29/2019 8:59:19 AM This report has been signed electronically. Number of Addenda: 0 Note Initiated On: 04/29/2019 8:27 AM PROVATION 04/29/2019 8:27 AM EDT Marcia Hutchinson MD GENERAL SURGICAL ORD ERABLES PROVATION documented in this encounter Visit Diagnoses Not on filedocumented in this encounter Administered Medications Inactive Administered Medications - up to 3 most recent administrations Medication Order MAR Action Action Date Dose Rate Site lactated ringers infusion 100 mL/hr, Intravenous, CONTINUOUS, Starting on Tiarra 04/29/19 at 0830, Until Tiarra 04/29/19 at 1005, Endoscopy (Day of Procedure) New Bag 04/29/2019 8:30 AM EDT 100 mL/hr 100 mL/hr documented in this encounter Active and Recently Administered Medications Times are shown in EDT. Continuous Medication Order 04/27/2019 04/28/2019 04/29/2019 lactated ringers infusion (CANCELED) 100 mL/hr, Intravenous, CONTINUOUS, Starting on Tiarra 04/29/19 at 0830, Until Tiarra 04/29/19 at 1005, Endoscopy (Day of Procedure) 0830 (New Bag - Prov ider: Bren De La O RN)14 (Anesthesia Volume Adjustment - Provider: Michael Smalls CRNA) documented in this encounter Care Teams Curve Cleaner Relationship Specialty Start Date End Date Marcia Hutchinson MD [address] [place] [address] PCP - General Family Medicine 02/12/19 documented as of this encounter
--- OUTSIDE RECORDS SUMMARY | 2024-12-08 08:58 | XMS_ITS | Encounter Summary ---
Author Organization [facility] Address [address] [place] [address] Care Team Providers Care Cannon Pinion Adjuster Name Role Phone Marcia Hutchinson MD Primary Care Provider [phone] Encounter Details Date Type Department Care Team (Late st Contact Info) Description 10/21/2023 Lab Requisition [facility] - [address] [address] Bib Wiggins MD [address] [place] [id number] Encounter for screening for human papillomavirus (HPV); Personal history of other medical treatment Social History Tobacco Use Types Packs/Day Years [...] Name Priority Date/Time Associated Diagnosis Comments PAP TEST Today 10/21/2023 17:50 EST HPV DNA DETECTION WITH GENOTYPING, PCR Today 10/21/2023 17:50 EST documented in this encounter Results * HUMAN PAPILLOMAVIRUS (HPV) DETECTION-HIGH RISK TYPES (10/21/2023 17:50 EST) HPV other High Risk types, PCR Negative Negative 10/30/2023 17:49 [facility] Comment:No E6 or E7 mRNA is detected from HPV types 16,18,31,33,35,39,45,51,52,56,58,59,66, and 68 by title i instructional assistant mediated amplification. Pap Test CERVIX UTERI STRUCTURE / Unknown 10/21/2023 17:50 EST 10/29/2023 14:55 EST us Bib Wiggins MD MICROBIOLOGY - GENERAL ORDERABLE S Final Result [facility] [address] [place] [address] * PAP TEST (10/21/2023 17:50 EST) Specimens A. Cervix and/or Endocervix , ThinPrep Imaging System with Manual Evaluation 10/30/2023 17:49 [facility] Specimen Adequacy Satisfactory for Evaluation - transformation zone component present Scant squamous epithelial component 10/30/2023 17:49 [facility] General Categorization Negative for intraepithelial lesion or malignancy 10/30/2023 17:49 [facility] Attestation . 10/30/2023 17:49 [facility] at 1749 Clinical History Clinical History, Signs, Symptoms, Chief Complaint, Pertaining to This Order: See below Last Menstral Period: NOT GIVEN Hormone/Contracep tive Use?: Yes ?: No Post-?: No Other Clinical History/Order Comments: 2020 COLPOSCOPY, 2021 ASCUS 10/30/2023 17:49 [facility] HPV The result for the Human Papillomavirus (HPV) Detection-High Risk Types is Negative. No E6 or E7 mRNA is detected from HPV types 16,18,31,33,35,39 ,45,51,52,56,58,5 9,66, and 68 by title i instructional assistant mediated amplification.Cristina ting was performed on specimen [id number] and was resulted on 10/30/2023 1749 EST by RANDOLPH, LAB INSTRUMENT RESULTS IN 10/30/2023 17:49 [facility] Performing Lab [facility] 10/30/2023 17:49 EST [facility] Scanned Images 10/30/2023 17:49 EST [facility] Pap Test CERVIX UTERI STRUCTURE / Unknown 10/21/2023 17:50 EST 10/22/2023 13:18 EST us Bib Wiggins MD PATHOLOGY ORDERABLES Final Resul t [facility] [address] [place] [address] documented in this encounter Visit Diagnoses Diagnosis Encounter for screening for human papillomavirus (HPV) Special screening examination for human papillomavirus (HPV) Personal history of other medical treatment documented in this encounter Care Teams Cannon Pinion Adjuster Relationship Specialty Start Date End Date Marcia Hutchinson MD [address] [place] [phone] PCP - General 09/22/23 documented as of this encounter
--- OUTSIDE RECORDS SUMMARY | 2024-12-08 08:58 | XMS_ITS | Encounter Summary ---
Author Organization [facility] [place] [address] Care Team Providers Care Landscape Laborer Name Role Phone Marcia Hutchinson MD Primary Care Provider [phone] Reason for Visit * Auth/Cert Specialty Diagnoses / Procedures Referred By Contac t Referred To Contact Diagnoses MEY, fm hx of Adenomous polyps, abd pain, rectal bleeding - CONSULT Procedures PRO UPPER GI ENDOSCOPY, DIAGNOSTIC PRO COLONOSCOPY, DIAGNOSTIC EGD, UPPER GI ENDOSCOPY COLONOSCOPY, DIAGNOSTIC Referral ID Status Reason Start Date Expiration Date Visits Re quested Visits Authorized [id number] 1 1 Encounter Details Date Type Department Care Team (Latest Contact Info) Description 04/29/2019 7:52 AM EDT - 04/29/2019 10:05 AM EDT Hospital En[place] [address] Kevin Lacy MD [facility] [place] [address] Discharge Disposition: Home Social History Tobacco Use Types Packs/Day Years [...] to be checked. Friday-Friday Same Day Endo [phone] Otherwise contact [phone] and ask to speak to the architectural engineering teacher cotton gin yard supervisor Follow up care is a tolbert part [...] AM EDT 04/29/2019 9:13 AM EDT Narrative [facility] - 04/29/2019 9:13 AM EDT Specimen requisition ordered. ??Separate Pathology report to follow Kevin Lacy MD PATHOLOGY/CYTOLOGY O KEISHA Performing Organization Address [facility] [place] [address] * Specimen to Pathology (04/29/2019 9:01 AM EDT) AP Specimen 04/29/2019 9:01 AM EDT 04/29/2019 9:01 AM EDT Narrative [facility] - 04/29/2019 9:01 AM EDT Specimen requisition ordered. ??Separate Pathology report to follow Kevin Lacy MD PATHOLOGY/CYTOLOGY O KEISHA Performing Organization Address [facility] [place] [address] * Specimen to Pathology (04/29/2019 9:01 AM EDT) AP Specimen 04/29/2019 9:01 AM EDT 04/29/2019 9:01 AM EDT Narrative [facility] - 04/29/2019 9:01 AM EDT Specimen requisition ordered. ??Separate Pathology report to follow Kevin Lacy MD PATHOLOGY/CYTOLOGY O KEISHA Performing Organization Address [facility] [place] [address] * Surgical Pathology Report (04/29/2019 8:51 AM EDT) Final Diagnosis [id number] ? Location: 4T; EA10; A The signing [...] Chan MD Verified: ??05/03/2019 ?Pathologist Performed at: ??-[facility] Dept. of Pathology, [place], [place] CLINICAL INFORMATION Specimen Submitted: A - [...] labeled C1-C2. ??ejr 05/03/2019 3:55 PM EDT [facility] GI Biopsy 04/29/2019 8:51 AM EDT 04/29/2019 8:51 AM EDT GI Biopsy 04/29/2019 8:51 AM EDT 04/29/2019 8:51 AM EDT GI Biopsy 04/29/2019 8:51 AM EDT 04/29/2019 8:51 AM EDT Kevin Lacy MD PATHOLOGY/CYTOLOGY O KEISHA [facility] [place] [address] * COLONOSCOPY (04/29/2019 8:28 AM EDT) COLONOSCOPY [facility] Endoscopy Procedure Date: 04/29/2019 8:28 AM ? Patient Name: Grisel Adams ? Date of : 1990 ? Age: 28 ? Order #: [id number] ? Instrument Name: [id number] ? Procedure: ? Colonoscopy Indications: ? Fe def anemia, alternating ? constipation and diarrhea Providers: ? Kevin Lacy MD, Jayna Sherman, ? RN, Nubia Ardon, Tableau Administrator Referring MD: ?Marcia Hutchinson MD Medicines: ? [...] preparation was evaluated using ? the BBPS ([place] Bowel Preparation ? Scale) with scores of: [...] (04/29/2019 8:27 AM EDT) UPPER GI ENDOSCOPY [facility] Endoscopy Procedure Date: 04/29/2019 8:27 AM ? Patient Name: Grisel Adams ? Date of : 1990 ? Age: 28 ? Order #: [id number] ? Instrument Name: [id number] ? Procedure: ? Upper GI endoscopy Indications: ? Fe def anemia Providers: ? Kevin Lacy MD, Jayna Sherman, ? RN, Nubia Ardon, Tableau Administrator Referring MD: ?Marcia Hutchinson MD Medicines: ? [...] on Tiarra 04/29/19 at 0830, Until Tiarra 19 at 1005, Endoscopy (Day of Procedure) 0830 (New Bag - Prov ider: Bren De La O RN)0914 (Anesthesia Volume Adjustment - Provider: Michael Smalls CRNA) documented in this encounter Care Teams Landscape Laborer Relationship Specialty Start Date End Date Marcia Hutchinson MD [address] [place] [address] PCP - General Family Medicine 02/12/19 documented as of this encounter
--- OUTSIDE RECORDS SUMMARY | 2024-12-08 08:58 | XMS_ITS | Encounter Summary ---
Author Organization [facility] Address [address] [place] [address] Care Team Providers Care Coagulating Bath Operator Name Role Phone Marcia Hutchinson MD Primary Care Provider [phone] Encounter Details Date Type Department Care Team (Latest Contact Info) Description 09/22/2023 Travel Social History Tobacco Use Types Packs/Day Years [...] on filedocumented in this encounter Care Teams Coagulating Bath Operator Relationship Specialty Start Date End Date Marcia Hutchinson MD [address] [place] [phone] PCP - General 09/22/23 documented as of this encounter
--- OUTSIDE RECORDS SUMMARY | 2024-12-08 08:58 | XMS_ITS | Encounter Summary ---
Author Organization [facility] Address [address] [place] [address] Care Team Providers Care Field Map Technician Name Role Phone Unknown, Provider Primary Care Provider Joel John MD Primary Care Provider Marcia Lane MD Primary Care Provider [phone] Encounter Details Date Type Department Care Team (Late st Contact Info) Description 04/30/2021 Lab Requisition [facility]ology & Laboratory Medicine - [address] [address] Jenny Chen, DRILLER HAND [address] [place] [address] Encounter for screening for malignant neoplasm of [...] Date/Time Associated Diagnosis Comments PAP TEST Today 04/26/2021 14:45 EDT Encounter for screening for malignant neoplasm of cervix HPV DNA DETECTION WITH GENOTYPING, PCR Today 04/26/2021 14:45 EDT Encounter for screening for malignant neoplasm of cervix documented in this encounter Results * (ABNORMAL) HUMAN PAPILLOMAVIRUS (HPV) DETECTION-HIGH RISK TYPES (04/26/2021 14:45 EDT) HPV other High Risk types, PCR Positive( A) Negative 05/10/2021 17:15 EDT [facility] Comment:E6 OR E7 mRNA from o ne or more types of HPV types 16,18,31,33,35,39,45,51,52,56,58,59,66, and 68 is detected by staff internist office based only mediated amplification. High and intermediate risk HPV types are associated with most squamous intraepithelial lesions and cervical cancers. Papanicolaou smear specimen (specimen) CERVIX UTERI STRUCTURE / Unknown 04/26/2021 14:45 EDT 05/09/2021 13:27 EDT us Jenny Chen DRILLER HAND MICROBIOLOGY - GENERAL O RDERABLES Final Result [facility] [address] [place] [address] * PAP TEST (04/26/2021 14:45 EDT) Specimens A. Cervix and/or Endocervix , ThinPrep Imaging System with Manual Evaluation 05/10/2021 17:15 T [facility] Specimen Adequacy Satisfactory for Evaluation - transformation zone component present 05/10/2021 17:15 T [facility] General Categorization Epithelial Cell Abnormality 05/10/2021 17:15 T [facility] Descriptive Diagnosis Squamous Cell Abnormality - Atypical squamous cells, undetermined significance (ASC-US). Fungal organisms present morphologically consistent with Korina species. 05/10/2021 17:15 EDT [facility] Educational Comments [employer] recommends following ASCCP's 2012 Updated Consensus Guidelines for the Management of Abnormal Cervical Cancer Screening Tests and Cancer Precursors (JLGTD, 2013; 17(5):S1-S27). Consensus guidelines are available online at www.asccp.org. 05/10/2021 17:15 EDT [facility] Attestation By the signature below, the attending physician certifies that they have personally conducted a gross and/or microscopic examination of the described specimens and rendered or confirmed the above diagnosis. 05/10/2021 17:15 EDT [facility] at 1715 Clinical History See below 05/10/20 17:15 EDT [facility] HPV The result for the Human Papillomavirus (HPV) Detection-High Risk Types is Positive . E6 OR E7 mRNA from one or more types of HPV types 16,18,31,33,35,39 ,45,51,52,56,58,5 9,66, and 68 is detected by staff internist office based only mediated amplification. High and intermediate risk HPV types are associated with most squamous intraepithelial lesions and cervical cancers. Testing was performed on specimen [id number] and was resulted on 05/10/2021 1713 EDT by RANDOLPH, LAB INSTRUMENT RESULTS IN 05/10/2021 17:15 EDT [facility] Performing Lab [facility] 05/10/2021 17:15 EDT [facility] Scanned Images 05/10/2021 17:15 EDT [facility] Papanicolaou smear specimen (specimen) CERVIX UTERI STRUCTURE / Unknown 04/26/2021 14:45 EDT 04/30/2021 16:10 EDT us Jenny Chen DRILLER HAND PATHOLOGY ORDERABLES Fin al Result [facility] [address] [place] [address] documented in this encounter Visit Diagnoses Diagnosis Encounter for screening for malignant neoplasm of cervix Screening for malignant neoplasm of the cervix documented in this encounter Care Teams Field Map Technician Relationship Specialty Start Date End Date Unknown, Provider, PCP - General 08/02/15 04/09/22 Joel Romo MD PCP - General 04/10/22 09/21/23 Marcia Hutchinson MD [address] [place] [phone] PCP - General 09/22/23 documented as of this encounter
--- OUTSIDE RECORDS SUMMARY | 2024-12-08 08:58 | XMS_ITS | Encounter Summary ---
[place] [address] Care Team Providers Care Regulatory Manager Name Role Phone Marcia Hutchinson MD Primary Care Provider [phone] Encounter Details Date Type Department Care Team (Late st Contact Info) Description 09/10/2024 Interpretation Only [facility] in [facility] [address] [place] [phone] Debbie Webb, [facility] [address] [place] [address] Social History Tobacco Use Types Packs/Day Years [...] on filedocumented in this encounter Care Teams Regulatory Manager Relationship Specialty Start Date End Date Marcia Hutchinson MD [address] [place], [place] [address] PCP - General Family Medicine 02/12/19 documented as of this encounter
[2024-12-08 21:56] LABS: HCT 36.8 % (36.0-46.0); HGB 11.7 g/dL (11.2-15.7); MCH 28.5 pg (27.0-33.0); MCHC 31.8 % (32.0-36.0); MCV 90 fL (80-95); MPV 10.3 fL (8.0-11.0); Platelet Count 381 10^3/uL (130-400); RBC 4.11 10^6/uL (3.93-5.22); RDW 13.2 % (11.7-14.6); RDW-SD 43.4 fL; WBC 11.78 10^3/uL (4.4-10.8)
[2024-12-08 22:00] LABS: Iron 26 ug/dL (50-170); Total Iron Binding Capacity 405 ug/dL (250-450)
== END 2024-12-08 08:52 | disposition home or self-care (01) ==
LOC: NCHCN 08:51
PROVIDERS: PCP Internal Medicine; Visit Provider Family Medicine
DX: D50.9 Iron deficiency anemia, unspecified (principal)
CPT/HCPCS: 85027; 83540; 83550

== ENCOUNTER 2025-01-19 14:56 | Outpatient (REF) | payer MEDICAID, SELFPAY | END 2025-01-19 14:57 | disposition home or self-care (01) | LOC: LBN 14:56 | PROVIDERS: PCP Internal Medicine; Visit Provider Family Medicine | DX: K61.0 Anal abscess (principal) | CPT/HCPCS: 87070; 87205 ==

== ENCOUNTER 2025-01-20 18:50 | Outpatient (REF) | payer MEDICAID, SELFPAY ==
[2025-01-20 22:04] LABS: C Diff PCR Negative (Negative)
[2025-01-22 10:54] LABS: Campylobacter PCR Negative (Negative); Salmonella PCR Negative (Negative); Shiga Toxin PCR Negative (Negative); Shigella/Enteroinvasive Ecoli Negative (Negative)
== END 2025-01-20 18:51 | disposition home or self-care (01) ==
LOC: NCHCN 18:50
PROVIDERS: PCP Internal Medicine; Visit Provider Family Medicine
DX: R19.7 Diarrhea, unspecified (principal)
CPT/HCPCS: 87493; 87505

== ENCOUNTER 2025-06-09 17:10 | Outpatient (REF) | payer MEDICAID, SELFPAY ==
[2025-06-09 21:02] LABS: HCT 34.4 % (36.0-46.0); HGB 11.2 g/dL (11.2-15.7); MCH 28.4 pg (27.0-33.0); MCHC 32.6 % (32.0-36.0); MCV 87 fL (80-95); MPV 9.6 fL (8.0-11.0); Platelet Count 397 10^3/uL (130-400); RBC 3.95 10^6/uL (3.93-5.22); RDW 13.3 % (11.7-14.6); RDW-SD 42.3 fL; WBC 10.97 10^3/uL (4.4-10.8)
[2025-06-09 21:24] LABS: Hemoglobin A1C 5.2 % (<5.7)
== END 2025-06-09 17:11 | disposition home or self-care (01) ==
LOC: NCHCN 17:10
PROVIDERS: PCP Internal Medicine; Visit Provider Family Medicine
DX: D64.9 Anemia, unspecified (principal); Z13.1 Encounter for screening for diabetes mellitus
CPT/HCPCS: 85027; 83036

== ENCOUNTER 2025-07-21 15:04 | Outpatient (REF) | payer MEDICAID, SELFPAY ==
[2025-07-21 21:04] LABS: Abs Immature Grans 0.05 10^3/uL (0.0-0.06); HCT 36.7 % (36.0-46.0); HGB 12.0 g/dL (11.2-15.7); Immature Grans % 0.4 %; MCH 28.0 pg (27.0-33.0); MCHC 32.7 % (32.0-36.0); MCV 86 fL (80-95); MPV 9.5 fL (8.0-11.0); Platelet Count 409 10^3/uL (130-400); RBC 4.28 10^6/uL (3.93-5.22); RDW 13.5 % (11.7-14.6); RDW-SD 42.1 fL; WBC 12.01 10^3/uL (4.4-10.8)
[2025-07-21 21:28] LABS: ALT 26 U/L (14-59); AST 15 U/L (15-37); Albumin 3.5 g/dL (3.4-5.0); Alkaline Phosphatase 84 U/L (46-116); Anion Gap 9.9 mmol/L (3-11); BUN 11 mg/dL (7-18); Bilirubin, Total 0.3 mg/dL (0.2-1.0); CO2 25.1 mmol/L (21.0-32.0); Calcium 9.5 mg/dL (8.5-10.1); Chloride 103 mmol/L (98-107); Estimated GFR 126.93 (mL/min/1.73m2); Glucose 103 mg/dL (74-106); Potassium 4.4 mmol/L (3.5-5.1); Sodium 138 mmol/L (136-145); Total Protein 7.6 g/dL (6.4-8.2)
== END 2025-07-21 15:05 | disposition home or self-care (01) ==
LOC: NCHCN 15:04
PROVIDERS: PCP Internal Medicine; Visit Provider Nurse Practitioner Family
DX: K61.1 Rectal abscess (principal)
CPT/HCPCS: 80053; 85025

== ENCOUNTER 2025-08-25 10:22 | Outpatient (REF) | payer MEDICAID, SELFPAY ==
[2025-08-25 14:40] LABS: Abs Immature Grans 0.03 10^3/uL (0.0-0.06); HCT 35.4 % (36.0-46.0); HGB 11.3 g/dL (11.2-15.7); Immature Grans % 0.3 %; MCH 26.9 pg (27.0-33.0); MCHC 31.9 % (32.0-36.0); MCV 84 fL (80-95); MPV 9.9 fL (8.0-11.0); Platelet Count 352 10^3/uL (130-400); RBC 4.20 10^6/uL (3.93-5.22); RDW 14.3 % (11.7-14.6); RDW-SD 44.2 fL; WBC 9.17 10^3/uL (4.4-10.8)
[2025-08-25 15:20] LABS: ALT 20 U/L (14-59); AST 10 U/L (15-37); Albumin 3.4 g/dL (3.4-5.0); Alkaline Phosphatase 71 U/L (46-116); Anion Gap 12.8 mmol/L (3-11); BUN 9 mg/dL (7-18); Bilirubin, Total 0.3 mg/dL (0.2-1.0); CO2 22.2 mmol/L (21.0-32.0); Calcium 9.2 mg/dL (8.5-10.1); Chloride 101 mmol/L (98-107); Estimated GFR 121.47 (mL/min/1.73m2); Glucose 93 mg/dL (74-106); Potassium 4.2 mmol/L (3.5-5.1); Sodium 136 mmol/L (136-145); Total Protein 7.4 g/dL (6.4-8.2)
[2025-08-26 13:44] LABS: Bacterial Vaginosis (BV) Negative (Negative); Candida glabrata Negative (Negative); Candida species group Negative (Negative)
== END 2025-08-25 10:23 | disposition home or self-care (01) ==
LOC: NCHCN 10:22
PROVIDERS: PCP Internal Medicine; Visit Provider Family Medicine
DX: R74.01 Elevation of levels of liver transaminase levels (principal); K61.0 Anal abscess; N83.201 Unspecified ovarian cyst, right side; N83.202 Unspecified ovarian cyst, left side
CPT/HCPCS: 80053; 81513; 84403; 87481; 87661; 85025; 87480; 87510; 87660